=== PATIENT | male | born 1965 | race Caucasian/White ===

== ENCOUNTER → 2018-03-23 10:27 | Outpatient (CLI) | payer MEDICARE, OTHER, SELFPAY ==
--- NOTE | 2018-03-23 10:35 | XR_ITS ---
XR ribs LT min 3V w CXR1V HISTORY: Posttraumatic pain ITS.REASON: LT RIB PAIN ORDERING PHYSICIAN: Reed Aguilar MD PATIENT AGE: 52 years Comparison: None FINDINGS: A frontal view of the chest shows no acute finding. Stimulator devices are noted over the upper chest on the right with leads to the neck region. There is lower thoracic curvature convex right. Multiple views of the Left ribs were obtained. Along the anterior aspect of the left seventh rib there is an area of cortical lucency superiorly which could be due to a nondisplaced fracture. No other significant anomalies are evident. IMPRESSION: Possible nondisplaced fracture left seventh rib anteriorly
== END ==
PROVIDERS: PCP Family Medicine; Visit Provider Family Medicine
DX: R07.81 Pleurodynia (principal)
CPT/HCPCS: 71101

== ENCOUNTER → 2019-08-06 09:05 | Outpatient (CLI) | payer MEDICARE, OTHER, SELFPAY ==
--- NOTE | 2019-08-06 09:12 | XR_ITS ---
PROCEDURE: XR LUMBAR SPINE MIN 4V CLINICAL INDICATION: ACUTE LOW BACK PAIN BILATERALLY COMPARISON: Lumbar spine from 01/06/2019 CT ABDOMEN PELVIS W CON from 05/15/2019 FINDINGS: There is mild lumbar curvature convex right. No fracture or dislocation is evident. There is multilevel spondylosis with degenerative disc disease at T10-T11, T11-T12, L1-L2, L2-L3, L3-L4. Endplate hypertrophic changes are present. There is mild facet arthritic changes at L5-S1. There is a 9 mm and may represent a renal stone. Calcific density to in the right upper quadrant IMPRESSION: 1. Multilevel lumbar spondylosis as described above overall not significantly changed 2. Right upper quadrant calcification consistent with renal stone Dictated by: Farzad Benavides MD 08/06/2019 11:45 Electronically signed by Farzad Benavides MD in [place] 08/06/2019 11:45
== END ==
PROVIDERS: PCP Family Medicine; Visit Provider Family Medicine
DX: M54.5 Low back pain (principal)
CPT/HCPCS: 72110

== ENCOUNTER 2020-06-05 10:06 | Emergency (ER) | payer MEDICARE, OTHER, SELFPAY ==
[2020-06-05 10:07] VITALS: BP 191/112; PULSE 83; RESP 16; TEMP 36.8; O2SAT 98; BMI 25.7
--- NOTE | 2020-06-05 10:24 | ECG_ITS ---
APPROVED REPORT Exam: Resting ECG HR:75 bpm ECG Measurements Heart Rate 75 AXES MT 166 P 56 QRSd 92 QRS -19 QT 370 T -1 QTc 413 Conclusion Normal sinus rhythm Normal ECG Electronically signed by : Reed Madera, 06/05/2020 19:35:03
--- NOTE | 2020-06-05 10:35 | XR_ITS ---
PROCEDURE: XR CHEST PORTABLE Referring Doctor: Pedro Bailey Patient Age:54Y CLINICAL HISTORY: rib pain Bilateral lateral side rib pain patient has neural stimulator not using at but COMPARISON: CR CS5 CERVICAL SPINE 4 OR 5 VIEWS from 01/06/2015 CR [id number] VIEWS from 11/19/2016 CR [id number] XR ribs LT min 3V w CXR1V from 03/23/2018 FINDINGS: AP semi-erect portable chest performed today. The lungs are well expanded and clear with nothing acute. But no pneumothorax but no pneumonia. No pleural effusion or chest wall findings. Heart normal size. Normal pulmonary vascularity. Payal and mediastinal structures satisfactory. What is seen of the chest wall and limited view of the ribs on today's portable study CXR unremarkable.. We again see the stimulator devices overlying the right chest, with leads extending upward to the right neck. Appears to be calcification along the course of these leads suggesting they are longstanding-in I do see a similar appearance on an old 2014 cervical spine series and 2006 right shoulder exam. IMPRESSION: Lungs clear No acute cardiopulmonary disease. -. Again note the longstanding stimulator devices overlying the upper right chest, with leads extending upward along the right neck. No obvious rib or a chest wall findings otherwise on this portable chest Dictated by: Terry Shanks MD 06/05/2020 12:25 Terry Shanks MD in [place] 06/05/2020 12:25
--- NOTE | 2020-06-05 10:35 | HMH.EDGENADL ---
ED Disposition Clinical Impression: Rib pain Hypertension Qualifiers: Hypertension type: essential hypertension Qualified Code(s): I10 - Essential (primary) hypertension Disposition: Home, Self-Care Condition on Discharge: Good Additional Instructions: Begin taking lisinopril once a day. Discontinue taking hydrochlorothiazide. Follow-up with your PCP regarding blood pressure control given your history of diabetes. You should be on an JEROD inhibitor/ARB/calcium channel talha. You were started on JEROD inhibitor in the emergency department. You can take tramadol as needed for rib pain. You may need further diagnostic testing such as EMG or MRI to establish the etiology of your pain. These are outpatient studies. Referrals: Broyd Aguila MD [Primary Care Provider] - 3 days - Critical Care Critical Care Time: No Attestation: On 06/05/20, the high probability of a clinically significant, sudden or life threatening deterioration of the following system(s) required my full and direct attention, intervention and personal management. The time I documented below is in addition to time spent performing reported procedures but includes the following listed in this critical care notation. Medical Decision Making - Marv Inquiry Pt receiving controlled substance: Yes Marv was queried for this patient: No Reason not queried -: Marv login issues Risks and benefits of using a controlled substance: were discussed with pt by me Vital Signs: 06/05/20 10:07 06/05/20 11:43 06/05/20 12:23 Temperature 98.2 F Temperature Source Oral Pulse Rate [Radial] 83 89 Respiratory Rate 16 20 Blood Pressure [Right Arm] 191/112 H 145/92 H 153/91 H Blood Pressure Mean [Right Arm] 138 109 111 Blood Pressure Source [Right Arm] Automatic Cuff Blood Pressure Position [Right Arm] Sitting Sitting Sitting 02 Sat by Pulse Oximetry 98 99 Oxygen Delivery Method Room Air - Lab Data Lab Results 06/05/20 10:26: Urine Color Yellow, Urine Appearance Clear, Urine pH 7.0, Ur Specific [place] 1.015, Urine Protein Negative, Urine Glucose (UA) Negative, Urine Ketones Negative, Urine Blood Negative, Urine Nitrate Negative, Urine Bilirubin Negative, Urine Urobilinogen 0.2, Ur Leukocyte Esterase Negative, Urine RBC Occasional, Urine WBC Occasional 06/05/20 10:35: WBC 7.2, RBC 5.88, Hgb 17.9, Hct 53.4 H, MCV 90.9, MCH 30.5, MCHC 33.5, RDW 13.4, Plt Count 260, MPV 7.4, Neut % (Auto) 72.3, Lymph % (Auto) 19.1, [place] % (Auto) 6.0, Eos % (Auto) 1.4, Baso % (Auto) 1.2, Neut # (Auto) 5.2, Lymph # (Auto) 1.4, [place] # (Auto) 0.4, Eos # (Auto) 0.1, Baso # (Auto) 0.1 06/05/20 10:35: Sodium 137, Potassium 3.8, Chloride 94 L, Carbon Dioxide 34 H, Anion Gap 12.8, BUN 19, Creatinine 0.80, Estimated Creat Clear 96, Estimated GFR 100, Est GFR ( Amer) 121, Glucose 166 H, Calcium 10.8 H, Total Bilirubin 1.1, AST 41, ALT 40, Alkaline Phosphatase 101, Total Protein 8.9 H, Albumin 5.1 H, Globulin 3.8 H, Albumin/Globulin Ratio 1.3 06/05/20 10:35: Troponin I < 0.01, NT-Pro-B Natriuret Pep 27.6 Result diagrams: 06/05/20 10:35 06/05/20 10:35 Medical Decision Narrative: 54yo M evaluated for ongoing bilateral rib pain. There is tinnitus includes but not limited to: Pneumonia, ACS, PE, distal skeletal injury, radicular pain. Patient is in no acute distress on initial evaluation. He is tender to palpate over the areas he demonstrates. He states he has not been exercising secondary to this pain. He has seen his PCP twice in the last week. CBC, CMP, troponin, UA, chest x-ray are all unremarkable. EKG unremarkable as documented above. Patient be treated with tramadol for his pain. Also discussed with the patient that as a diabetic, he should be on an JEROD or an ARB for his hypertension. His blood pressure is currently elevated he believes is secondary to pain and anxiety. Will initiate the patient on lisinopril in the emergency department and encouraged him to follow-up with hi
[2020-06-05 10:41] LABS: Microscopic, Urine URINE MICROSCOPIC (MICROSCOPIC)
[2020-06-05 10:43] LABS: Basophils # 0.1 K/mm3 (0-0.2); Basophils % 1.2 % (0.1-2.0); Eosinophils # 0.1 K/mm3 (0.0-0.4); Eosinophils % 1.4 % (0.1-12.0); Hematocrit 53.4 % (42.0-52.0); Hemoglobin 17.9 g/dL (14.1-18.0); Lymphocytes # 1.4 K/mm3 (0.7-4.5); Lymphocytes % 19.1 % (10-50); Mean Corpuscular HGB Conc 33.5 g/dL (31.8-35.4); Mean Corpuscular Hemoglobin 30.5 pg (27.0-31.2); Mean Corpuscular Volume 90.9 fl (80-94); Mean Platelet Volume 7.4 fl (7.4-10.4); Monocytes # 0.4 K/mm3 (0.1-1.0); Neutrophils # 5.2 K/mm3 (1.8-7.8); Neutrophils % 72.3 % (37.0-80.0); Platelet Count 260 K/mm3 (142-424); Red Blood Count 5.88 M/mm3 (4.60-6.20); Red Cell Distribution Width 13.4 % (11.5-17.5); White Blood Count 7.2 K/mm3 (4.8-10.8)
[2020-06-05 10:45] LABS: Appearance,Urine CLEAR (Clear); Bilirubin,Urine Negative (Negative); Blood, Urine Negative (Negative); Color,Urine YELLOW (Yellow); Glucose,Urine (UA) Negative (Negative); Ketones,Urine Negative (Negative); Leukocyte Esterase,Urine Negative (Negative); Nitrate,Urine Negative (Negative); Protein,Urine Negative (Negative); Specific Gravity, Urine 1.015 (1.005-1.030); Urobilinogen,Urine 0.2 EU/dl (0.2)
[2020-06-05 10:50] LABS: Alanine Aminotransferase 40 U/L (12-78); Albumin Level 5.1 g/dl (3.5-5.0); Albumin/Globulin Ratio 1.3 (1.1-1.8); Alkaline Phosphatase 101 U/L (38-126); Anion Gap 12.8 mEq/L (5-15); Aspartate Amino Transferase 41 U/L (17-59); Bilirubin,Total 1.1 mg/dl (0.2-1.3); Blood Urea Nitrogen 19 mg/dl (9-20); Calcium 10.8 mg/dl (8.4-10.2); Carbon Dioxide 34 mmol/L (22.0-30.0); Chloride 94 mmol/L (98-107); Creatinine Clearance Estimated 96 mL/min (50-200); Estimated Glomerular Filt Rate 100 ml/min (>60); GFR (African American) 121 ML/MIN (>60); Globulin 3.8 g/dL (1.3-3.2); Glucose 166 mg/dl (74-100); Potassium 3.8 mmoL/L (3.5-5.1); Sodium 137 mmol/L (136-145); Total Protein,Serum 8.9 g/dl (6.3-8.2)
--- NOTE | 2020-06-05 10:55 | PC.NURSE ---
rad at BS
[2020-06-05 11:00] LABS: RBC,Urine Occasional #/hpf (0-3); WBC,Urine Occasional #/hpf (0-3)
[2020-06-05 11:02] LABS: NT Pro Brain Natriuretic Pep. 27.6 pg/mL (0-125)
[2020-06-05 11:12] LABS: Troponin I < 0.01 ng/ml (0.00-0.034)
[2020-06-05 11:43] VITALS: BP 145/92
[2020-06-05 12:23] VITALS: BP 153/91; PULSE 89; RESP 20; O2SAT 99
[2020-06-05 13:05] VITALS: BP 160/100; PULSE 78; RESP 18; TEMP 36.6; O2SAT 98
== END 2020-06-05 13:06 | disposition home or self-care (01) ==
PROVIDERS: Emergency Provider Family Medicine; PCP Family Medicine
DX: R07.81 Pleurodynia (principal); I10 Essential (primary) hypertension; E11.65 Type 2 diabetes mellitus with hyperglycemia; H93.19 Tinnitus, unspecified ear; R06.02 Shortness of breath
CPT/HCPCS: 71045; 80053; 81001; 83880; 84484; 85025; 93005; 99283

== ENCOUNTER 2021-01-31 12:55 | Emergency (ER) | payer MEDICARE, OTHER, SELFPAY ==
[2021-01-31 15:16] VITALS: BP 150/80; PULSE 98; RESP 18; TEMP 36.6; O2SAT 100; BMI 25.7
--- NOTE | 2021-01-31 15:30 | HMH.EDUTC ---
[facility] [place] Clinical Impression: Diarrhea Qualifiers: Diarrhea type: unspecified type Qualified Code(s): R19.7 - Diarrhea, unspecified Disposition: Home, Self-Care Condition on Discharge: Good Instructions: DI for Diarrhea and Traveler's Diarrhea -- Adult Additional Instructions: Outpatient order for diarrhea panel if diarrhea returns Clear liquids and bland diet until normal BM Referrals: Brody Aguila MD [Primary Care Provider] - Time of Disposition: 15:45 Medical Decision Making - Marv Inquiry Pt receiving controlled substance: No Vital Signs: 01/31/21 15:16 Temperature 98 F Temperature Source Oral Pulse Rate [Left] 98 H Respiratory Rate 18 Blood Pressure [Right Arm] 150/80 H Blood Pressure Mean [Right Arm] 103 02 Sat by Pulse Oximetry 100 [facility] [place] - General Stated complaint: diarrhea Time Seen by Provider: 01/31/21 15:30 Mode of Arrival: Ambulatory Source of Information: Patient Limitations: No Limitations Description of Symptoms (Recalled from Triage Doc. by RN): pt c/o of diarhea x2 days. HEENT Symptoms (Recalled from RN notes): No Resp Symptoms (Recalled from RN notes): No Skin Symptoms (Recalled from RN notes): No MS Symptoms (Recalled from RN notes): No Functional Status (Recalled from RN notes): na - History of Present Illness Provider Complaint: Diarrhea this am. States he ate at the [place] yesterday, felt ok. Had a normal BM last night and this am. Then had acute onset loose watery stools X 3. Got concerned because this happened to him once before and his potassium got very low. No vomiting. No diarrhea since he has been here. No fever or abdominal pain. Onset (ago): day(s) (1) Location: abdomen Relieving factors: none Exacerbating factors: none Associated symptoms: denies other symptoms Treatments prior to arrival: none - Related Data Home Medications Medication Instructions Recorded Confirmed Metoprolol Tartrate 50 mg PO DAILY 12/23/17 12/23/17 Fluticasone Propionate [Flonase 1 spr NS BID 05/15/19 50mcg nasal spray 16gm] predniSONE [Deltasone 10mg tablet] 10 mg PO BID 05/15/19 Previous Rx's Medication Instructions Recorded Tramadol HCl [Tramadol 50mg 50 mg PO TID PRN #10 tab 06/05/20 Tab] lisinopriL [Lisinopril 10mg Tab] 10 mg PO DAILY #14 tab 06/05/20 Allergies Allergy/AdvReac Type Severity Reaction Status Date / Time No Known Allergies Allergy Verified 05/15/19 03:18 - Worker's Comp Is this a Worker's Comp case?: No [facility] History - Hepatitis A Screen Drug use history?: No High risk sexual behaviors?: No History of sexually transmitted infection?: No Currently employed?: No Childcare worker?: No Do you have indoor plumbing?: Yes Do you have electricity?: Yes Attestation statement:: This patient has been screened for Hepatitis A risk factors. I have reviewed the patient's past medical history: Yes Medical History: Reports:: Diabetes Mellitus Type 2, Hypertension Denies:: Cancer, Diabetes Mellitus Type 1, Internal Pacemaker, MRSA Other Medical History: Reports: Other (CP) Other Surgeries: Yes: Other (multiple due to CP). No: Pacemaker Amputation: No - Social History Smoking Status: Never smoker Alcohol Intake: never Occupational Status: other ROS Obtained: Yes All systems reviewed & no additional complaints - Gastrointestinal Gastrointestingal: Reports: loose stools Physical Exam - General General appearance: alert, in no apparent distress - Head Head exam: normocephalic - Eye Eye exam: Present: PERRL - ENT ENT exam: Present: normal oropharynx, TM's normal bilaterally - Chest Chest inspection: Present: normal inspection, symmetric chest wall rise - Respiratory Respiratory exam: Present: normal lung sounds bilaterally - Cardiovascular Cardiovascular exam: Present: regular rate, normal rhythm - Abdominal Exam Abdominal exam: Present: soft, hyperactive bowel sounds - Neurological Exam
[2021-01-31 15:54] VITALS: BP 0/0; PULSE 0; RESP 0; TEMP -17.7; TEMP 0
== END 2021-01-31 16:08 | disposition home or self-care (01) ==
PROVIDERS: Emergency Provider Physician Assistant; PCP Family Medicine
DX: R19.7 Diarrhea, unspecified (principal)
CPT/HCPCS: G0463; 99202

== ENCOUNTER → 2021-02-01 08:33 | Outpatient (CLI) | payer MEDICARE, OTHER, SELFPAY ==
[2021-02-01 08:36] LABS: Adenovirus F 40/41, stool Not Detected (NotDetected); Astrovirus Not Detected (NotDetected); Campylobacter Not Detected (NotDetected); Clostridium Difficile A/B, PCR Not Detected (NotDetected); Cryptosporidium Not Detected (NotDetected); Cyclospora Cayetanesis Not Detected (NotDetected); Entamoeba histolytica Not Detected (NotDetected); Enteroaggregative E coli Not Detected (NotDetected); Enterotoxigenic E coli Not Detected (NotDetected); Giardia lamblia Not Detected (NotDetected); Norovirus Not Detected (NotDetected); Plesimonas Shigalloides, PCR Not Detected (NotDetected); Rotavirus A Not Detected (NotDetected); Salmonella, PCR Not Detected (NotDetected); Sapovirus Not Detected (NotDetected); Shiga-like toxin E coli Not Detected (NotDetected); Shigella Enterovasive E coli Not Detected (NotDetected); Vibrio Cholerae Not Detected (NotDetected); Vibrio, PCR Not Detected (NotDetected); Yersinia Entercolitica, PCR Not Detected (NotDetected)
[2021-02-01 13:51] LABS: Enteropathogenic E coli Detected (NotDetected)
== END ==
PROVIDERS: Visit Provider Physician Assistant
DX: R19.7 Diarrhea, unspecified (principal); A04.0 Enteropathogenic Escherichia coli infection
CPT/HCPCS: 87506

== ENCOUNTER 2021-08-15 13:47 | Emergency (ER) | payer MEDICARE, OTHER, SELFPAY ==
[2021-08-15 15:03] VITALS: BP 138/91; PULSE 111; RESP 14; TEMP 36.7; O2SAT 98; BMI 25.7
--- NOTE | 2021-08-15 15:29 | HMH.EDUTC ---
[facility] [place] Dis[place] Clinical Impression: Shakiness Disposition: Home, Self-Care Condition on Discharge: Good Instructions: DI for Muscle Weakness, Prednisone Additional Instructions: Follow up with Family Doctor for further treatment and evaluation Hold last dose of Prednisone to see if that helps with nervousness and shakiness Straight to ER if any life threatening symptoms Return if needed Referrals: Brody Aguila MD [Primary Care Provider] - As needed Time of Disposition: 15:50 Medical Decision Making - Marv Inquiry Pt receiving controlled substance: No Marv was queried for this patient: No Vital Signs: 08/15/21 15:03 08/15/21 16:19 Temperature 98.1 F 98.1 F Temperature Source Oral Pulse Rate 111 H Pulse Rate [Left] 111 H Respiratory Rate 14 14 Blood Pressure 138/91 H Blood Pressure [Right Arm] 138/91 H Blood Pressure Mean [Right Arm] 106 02 Sat by Pulse Oximetry 98 - Lab Data Lab Results 08/15/21 16:12: Urine Color Yellow, Urine Appearance Clear, Urine pH 7.0, Ur Specific [place] 1.015, Urine Protein Negative, Urine Glucose (UA) Negative, Urine Ketones Negative, Urine Blood Negative, Urine Nitrate Negative, Urine Bilirubin Negative, Urine Urobilinogen 0.2, Ur Leukocyte Esterase Negative Medical Decision Narrative: Patient states that he is feeling a little better now Discussed with patient and educated that he has been on 10mg Prednisone dose pack and this may cause him to feel shaky and nervous that it is a common side effect however recommended that patient be transferred to the ED for further work up and evaluation and patient declined Recommended that patient hold last dose of Predisone and see if his shakiness improves and if not to follow up with his PCP for further treatment and straight to ER if any worsening of symptoms or any life threatening symptoms patient and family agreed Patient denies SOA, Denies CP and denies any other symptoms [facility] [place] HPI - General Stated complaint: weakness, low BP Time Seen by Provider: 08/15/21 15:29 Mode of Arrival: Ambulatory Source of Information: Patient Limitations: No Limitations Description of Symptoms (Recalled from Triage Doc. by RN): pt c/o low bp and shakiness. pt reports his bp was 126/74 this am. (he states this is low for him) FS this am was 148. pt states this has been ongoing x3 days. BP at this time is 146/86 HEENT Symptoms (Recalled from RN notes): No Resp Symptoms (Recalled from RN notes): No Skin Symptoms (Recalled from RN notes): No MS Symptoms (Recalled from RN notes): No Functional Status (Recalled from RN notes): wnl - History of Present Illness Provider Complaint: Patient state that he has been feeling shaky and out of sorts for the last several days States that he feels like he is nervous State that he checked his blood pressure this morning and it was low it was 126/74 and that is low for him States that he has been on prednisone and baclofen for back pain but was worried when his blood pressure was low like that and him feeling shaky States that he is a diabetic and FSBS at home was 146 - Related Data Home Medications Medication Instructions Recorded Confirmed Metoprolol Tartrate 50 mg PO DAILY 12/23/17 12/23/17 Fluticasone Propionate [Flonase 1 spr NS BID 05/15/19 50mcg nasal spray 16gm] predniSONE [Deltasone 10mg tablet] 10 mg PO BID 05/15/19 Previous Rx's Medication Instructions Recorded Tramadol HCl [Tramadol 50mg 50 mg PO TID PRN #10 tab 06/05/20 Tab] lisinopriL [Lisinopril 10mg Tab] 10 mg PO DAILY #14 tab 06/05/20 ciprofloxacin HCl 500 mg tablet 500 mg PO BID #10 tab 02/02/21 Allergies Allergy/AdvReac Type Severity Reaction Status Date / Time No Known Allergies Allergy Verified 05/15/19 03:18 - Worker's Comp Is this a Worker's Comp case?: No [facility] History - Hepatitis A Screen Drug use history?: No High risk sexual behaviors?: No History of sexually transmitted infection?: No
[2021-08-15 16:18] LABS: Apearance,Urine Clear (Clear); Bilirubin,Urine Negative (Negative); Blood, Urine Negative (Negative); Color,Urine Yellow (Yellow); Glucose,Urine (UA) Negative (Negative); Ketones,Urine Negative (Negative); Protein,Urine Negative (Negative); Specific Gravity, Urine 1.015 (1.005-1.030); UTC Leukocyte Esterase,Urine Negative (Negative); UTC Nitrate,Urine Negative (Negative); Urobilinogen,Urine 0.2 EU/dl (0.2)
[2021-08-15 16:19] VITALS: BP 138/91; PULSE 111; RESP 14; TEMP 36.7
== END 2021-08-15 16:19 | disposition home or self-care (01) ==
PROVIDERS: Emergency Provider Nurse Practitioner; PCP Family Medicine
DX: G25.1 Drug-induced tremor (principal); T38.0X5A Adverse effect of glucocorticoids and synthetic analogues, initial encounter; I10 Essential (primary) hypertension; E11.9 Type 2 diabetes mellitus without complications; G80.9 Cerebral palsy, unspecified; Z79.899 Other long term (current) drug therapy
CPT/HCPCS: G0463; 81003; 99213

== ENCOUNTER 2022-03-05 12:29 | Emergency (ER) | payer MEDICARE, OTHER, SELFPAY ==
[2022-03-05 13:00] VITALS: BP 141/90; PULSE 88; RESP 19; TEMP 36.5; O2SAT 98; BMI 23.1
--- NOTE | 2022-03-05 13:21 | EXP.UTC ---
Discharge Plan Disposition Patient Disposition: Home, Self-Care Condition: Good Prescriptions Prescriptions: New azithromycin [Zithromax] 250 mg tablet See Rx Instructions PO .COMPLEX Qty: 6 0RF Rx Instructions: For 250 mg dose pack: take 500 mg today (day 1), then 250 mg for 4 days (days 2-5) Discontinued ciprofloxacin HCl [Cipro] 500 mg tablet 500 mg PO BID Qty: 10 0RF Rx Instructions: Take 1 tablet twice a day for 5days. prednisone 10 MG tablet 10 mg PO BID No Action metoprolol tartrate 50 MG tablet 50 mg PO DAILY fluticasone propionate 120 SPR/BOT bottle 1 spr NS BID tramadol 50 MG tablet 50 mg PO TID PRN (Reason: Moderate Pain) Qty: 10 0RF lisinopril 10 MG tablet 10 mg PO DAILY Qty: 14 0RF Referrals Follow up/Referrals: Brody Aguila MD [Primary Care Provider] - See instructions Activity Restrictions/Add. Instructions Additional Instructions/Restrictions: Start antibiotic patient to take as ordered for a full length of time even if you feel better. Sinus infections do not get better overnight. It may take 2-3 days to notice much improvement so be sure to use conservative measures as discussed for symptoms. Flonase 1 spray each nostril daily to help with nasal congestion, sinus and ear pressure/information Increase fluids Humidifier/vaporizer as needed Tylenol and ibuprofen as needed for fever or pain. If symptoms do not improve or get worse return or be seen in the ER Follow-up with primary care this week stop amoxicilin and cipro Clinical Impressions Clinical Impression: Acute maxillary sinusitis Instructions Patient Instructions: DI for Sinusitis Discharge ED Provider: Ju ([facility] [place] HPI General Stated complaint: Congestion, drainage, [place] Mode of Arrival: Ambulatory Source of Information: Patient Limitations: No Limitations Time Seen by Provider: 03/05/22 13:22 Description of Symptoms (Recalled from Triage Doc. by RN): PATIENT C/O COUGH AND CONGESTION X 2 WEEKS HEENT Symptoms (Recalled from RN notes): No Resp Symptoms (Recalled from RN notes): Yes Skin Symptoms (Recalled from RN notes): No MS Symptoms (Recalled from RN notes): No Functional Status (Recalled from RN notes): WNL History of Present Illness Provider Complaint: 56 yr old male presents for cough and congestion for 2 weeks. pt states he has seen his pcp 2 x and now is taking amoxicllin. Related Data Home Medications Medication Instructions Recorded Confirmed metoprolol tartrate 50 mg tablet 50 mg PO DAILY heart 12/23/17 12/23/17 fluticasone propionate 50 1 spr NS BID allergies 05/15/19 mcg/actuation nasal spray,suspension Previous Rx's Medication Instructions Recorded lisinopril 10 mg tablet 10 mg PO DAILY #14 tabs 06/05/20 tramadol 50 mg tablet 50 mg PO TID PRN Moderate Pain #10 06/05/20 tabs azithromycin 250 mg tablet See Rx Instructions PO .COMPLEX #6 03/05/22 (Zithromax) tabs Allergies Allergy/AdvReac Type Severity Reaction Status Date / Time No Known Allergies Allergy Verified 05/15/19 03:18 Worker's Comp Is this a Worker's Comp case?: No [facility] Medical History , [employer] DES[employer]) Diabetes mellitus, type 2 Social History , [employer]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
[2022-03-05 13:40] VITALS: BP 141/90; PULSE 88; RESP 19; TEMP 36.5; O2SAT 98
== END 2022-03-05 13:44 | disposition home or self-care (01) ==
PROVIDERS: Emergency Provider Nurse Practitioner Family; PCP Family Medicine
DX: J01.00 Acute maxillary sinusitis, unspecified (principal)
CPT/HCPCS: 99212; G0463

== ENCOUNTER → 2022-03-08 10:46 | Outpatient (CLI) | payer MEDICARE, OTHER, SELFPAY ==
--- NOTE | 2022-03-08 10:58 | XR_ITS ---
FINAL REPORT CLINICAL HISTORY: COUGH COMPARISON: June 05, 2020 FINDINGS: Two views of the chest were obtained. A device overlies the right upper thorax. The heart size and pulmonary vascularity are within normal limits. The mediastinum is normal. No acute pulmonary abnormality is identified. There is no pneumothorax. The bony thorax is intact. IMPRESSION: No active cardiopulmonary disease. Reviewed, Interpreted and Dictated by Oli Bruno III, MD Transcribed by William Begum Authenticated and [facility]
== END ==
PROVIDERS: PCP Family Medicine; Visit Provider Family Medicine
DX: R05.9 Cough, unspecified (principal)
CPT/HCPCS: 71046

== ENCOUNTER → 2022-03-17 08:22 | Outpatient (CLI) | payer MEDICARE, OTHER, SELFPAY | PROVIDERS: PCP Family Medicine; Visit Provider Family Medicine | DX: J06.9 Acute upper respiratory infection, unspecified (principal); B96.1 Klebsiella pneumoniae [K. pneumoniae] as the cause of diseases classified elsewhere | CPT/HCPCS: 87070; 87077; 87186; 87205 ==

== ENCOUNTER 2023-07-02 09:48 | Emergency (ER) | payer MEDICARE, OTHER, SELFPAY ==
[2023-07-02 10:00] VITALS: BP 146/94; PULSE 75; RESP 18; TEMP 36.4; O2SAT 99; BMI 24.0
--- NOTE | 2023-07-02 10:07 | EXP.UTC ---
Discharge Plan Disposition Patient Disposition: Home, Self-Care Condition: Good Prescriptions Prescriptions: New cephalexin 500 mg capsule 500 mg PO QID Qty: 40 0RF No Action metoprolol tartrate 50 MG tablet 50 mg PO DAILY fluticasone propionate 120 SPR/BOT bottle 1 spr NS BID tramadol 50 MG tablet 50 mg PO TID PRN (Reason: Moderate Pain) Qty: 10 0RF atorvastatin 10 mg tablet 10 mg PO DAILY sulfamethoxazole-trimethoprim 800-160 mg tablet See Rx Instructions .ROUTE .COMPLEX Patient Comments: TAKE 1 TABLET BY MOUTH TWICE DAILY FOR 10 DAYS Rx Instructions: TAKE 1 TABLET BY MOUTH TWICE DAILY FOR 10 DAYS baclofen 10 mg tablet See Rx Instructions .ROUTE .COMPLEX Patient Comments: TAKE 1 TABLET BY MOUTH EVERY 8 HOURS NEEDED Rx Instructions: TAKE 1 TABLET BY MOUTH EVERY 8 HOURS NEEDED lisinopril-hydrochlorothiazide 10-12.5 mg tablet 1 tab PO DAILY Patient Comments: TAKE 1 TABLET BY MOUTH ONCE DAILY Referrals Follow up/Referrals: Brody Aguila MD [Primary Care Provider] - See instructions Activity Restrictions/Add. Instructions Additional Instructions/Restrictions: Take tylenol for pain or fever. Take the medications as directed. Start the cephalexin. Continue the bactrim that you are already on. Follow up with your regular doctor as scheduled. GO TO THE ER FOR ANY WORSENING SYMPTOMS Clinical Impressions Clinical Impression: Cellulitis Instructions Patient Instructions: Cellulitis, Ceftriaxone Injection Discharge ED Provider: Ramy Vasquez [facility] General Stated complaint: Swollen legs Time Seen by Provider: 07/02/23 10:07 History of Present Illness Provider Complaint: He states that for the past 5 days he has had worsening redness of both his lower legs. He has also had some dysuria. Related Data Home Medications Medication Instructions Recorded Confirmed metoprolol tartrate 50 mg tablet 50 mg PO DAILY heart 12/23/17 07/02/23 fluticasone propionate 50 1 spr NS BID allergies 05/15/19 mcg/actuation nasal spray,suspension atorvastatin 10 mg tablet 10 mg PO DAILY 07/02/23 07/02/23 baclofen 10 mg tablet See Rx Instructions .Route .COMPLEX 07/02/23 07/02/23 lisinopril 10 1 tab PO DAILY 07/02/23 07/02/23 mg-hydrochlorothiazide 12.5 mg tablet sulfamethoxazole 800 See Rx Instructions .Route .COMPLEX 07/02/23 07/02/23 mg-trimethoprim 160 mg tablet Previous Rx's Medication Instructions Recorded tramadol 50 mg tablet 50 mg PO TID PRN Moderate Pain #10 06/05/20 tabs cephalexin 500 mg capsule 500 mg PO QID #40 caps 07/02/23 Allergies Allergy/AdvReac Type Severity Reaction Status Date / Time No Known Allergies Allergy Verified 05/15/19 03:18 [facility] Disclaimer: The information contained in this section may have been updated after the patient was seen, as this information can be updated by other users. Medical History (Updated 07/02/23 @ 11:06 by Ramy Vasquez APRN) Diabetes mellitus, type 2 Enlarged prostate High cholesterol History of seizure Kidney stones Social History , GLADYS) Smoking Status: Never smoker alcohol intake: never current occupational status: other Travel in the last 8 weeks: None caffeine: No ROS Obtained: Yes All systems reviewed & no additional complaints except as documented Constitutional Constitutional: Denies chills and Denies fever(s) Eyes Eyes: Denies eye discharge ENT Ears, Nose, Mouth, and Throat: Denies dizziness, Denies otalgia and Denies sore throat Cardiovascular Cardiovascular: Denies chest pain Respiratory Respiratory: Denies shortness of breath, Denies chest congestion, Denies cough, Denies stridor and Denies wheezing Gastrointestinal Gastrointestingal: Denies nausea or vomiting Genitourinary Male Genitourinary: Reports as per HPI, Denies difficulty urinating, Reports urinary frequency, Reports urinary hesitancy and Denies urinary incontinence Musculoskeletal Musculoskeletal: Reports system reviewed and no additional complaints, except as documented and Denies arthralgias Integumentary/Breasts Skin/Breast: Denies rash Neurologic Neurologic: Denies dizziness and Denies paresthesias Allergic/Immunologic Allergic/Immunologic: Denies wheezing Physical Exam General General appearance: alert and in no apparent distress Head Head exam: atraumatic, normocephalic and normal inspection Eye Eye exam: Present normal appearance, PERRL and EOMI ENT ENT exam: Present normal exam, normal oropharynx, mucous membranes moist, TM's normal bilaterally and normal external ear exam Neck Neck exam: Present normal inspection, full ROM and trachea midline; Absent meningismus or lymphadenopathy Chest Chest inspection: Present normal inspection and symmetric chest wall rise; Absent tenderness Respiratory Respiratory exam: Present normal lung sounds bilaterally; Absent respiratory distress Cardiovascular Cardiovascular exam: Present regular rate and normal rhythm; Absent JVD Abdominal Exam Abdominal exam: Present soft and normal bowel sounds; Absent distention, tenderness or guarding Extremities Exam Extremities exam: Present normal inspection, full ROM and normal capillary refill; Absent calf tenderness Back Exam Back exam: Present normal inspection; Absent tenderness Neurological Exam Neurological exam: Present alert and oriented X3 Psychiatric Psychiatric exam: Present normal affect and normal mood Skin Skin exam: Present erythema (there is redness of both his leg in the adrian area, no open wound and no drainage. ) Lymphatic Lymphatic Findings: no adenopathy Medical Decision Making Marv Inquiry Pt receiving controlled substance: No Lab Data Lab results reviewed: Yes I reviewed the patient's lab results.
[2023-07-02 10:42] LABS: Apearance,Urine Clear (Clear); Color,Urine Yellow (Yellow)
[2023-07-02 10:43] LABS: Bilirubin,Urine Negative (Negative); Blood, Urine Negative (Negative); Glucose,Urine (UA) Negative (Negative); Ketones,Urine Negative (Negative); Protein,Urine Negative (Negative)
[2023-07-02 10:44] LABS: UTC Leukocyte Esterase,Urine Negative (Negative); UTC Nitrate,Urine Negative (Negative); Urobilinogen,Urine 0.2 EU/dl (0.2)
--- NOTE | 2023-07-02 10:47 | PC.NURSE ---
Addendum entered by Lucy Pierre RN 07/02/23 11:16: After going in to give the shot the patient he has reconsidered and took the shot in the right gluteus medius. Original Note: Spoke with Kulwinder CLEMENTE to verify it was okay to give rocephen into arm as pt request. I spoke with pt and address that there is going to be more pain with this placement of the shot, and advised it is generally given in the gluteus medius. He understood the precautions and still wants the shot in his arm.
[2023-07-02] MEDS: LIDOCAINE 1% 5ML PF VIAL IM (10:53)
[2023-07-02] MEDS: cefTRIAXone 1GM VIAL 1 GM IM (10:53)
[2023-07-02 11:17] VITALS: BP 146/94; PULSE 75; RESP 75; TEMP 36.4; O2SAT 99
== END 2023-07-02 11:17 | disposition home or self-care (01) ==
PROVIDERS: Emergency Provider Nurse Practitioner Family; PCP Family Medicine
DX: L03.115 Cellulitis of right lower limb (principal); L03.116 Cellulitis of left lower limb; R30.0 Dysuria; I10 Essential (primary) hypertension; E78.5 Hyperlipidemia, unspecified
CPT/HCPCS: 81003; 96372; 99212; 99214; G0463; J0696

== ENCOUNTER 2023-07-05 19:00 | Emergency (ER) | payer MEDICARE, OTHER, SELFPAY ==
[2023-07-05 19:20] VITALS: BP 145/95; PULSE 79; RESP 18; TEMP 36.9; O2SAT 98; BMI 22.8
--- NOTE | 2023-07-05 19:26 | EXP.UTC ---
Discharge Plan Disposition Patient Disposition: Home, Self-Care Condition: Good Prescriptions Prescriptions: No Action metoprolol tartrate 50 MG tablet 50 mg PO DAILY fluticasone propionate 120 SPR/BOT bottle 1 spr NS BID tramadol 50 MG tablet 50 mg PO TID PRN (Reason: Moderate Pain) Qty: 10 0RF atorvastatin 10 mg tablet 10 mg PO DAILY sulfamethoxazole-trimethoprim 800-160 mg tablet See Rx Instructions .ROUTE .COMPLEX Patient Comments: TAKE 1 TABLET BY MOUTH TWICE DAILY FOR 10 DAYS Rx Instructions: TAKE 1 TABLET BY MOUTH TWICE DAILY FOR 10 DAYS baclofen 10 mg tablet See Rx Instructions .ROUTE .COMPLEX Patient Comments: TAKE 1 TABLET BY MOUTH EVERY 8 HOURS NEEDED Rx Instructions: TAKE 1 TABLET BY MOUTH EVERY 8 HOURS NEEDED lisinopril-hydrochlorothiazide 10-12.5 mg tablet 1 tab PO DAILY Patient Comments: TAKE 1 TABLET BY MOUTH ONCE DAILY cephalexin 500 mg capsule 500 mg PO QID Qty: 40 0RF Referrals Follow up/Referrals: Brody Aguila MD [Primary Care Provider] - See instructions Activity Restrictions/Add. Instructions Additional Instructions/Restrictions: Take tylenol for pain or fever Continue the cephalexin (keflex) that you are on. Take the medications as directed. Follow up with your regular doctor within the next 48 to 72 hours. GO TO THE ER FOR ANY WORSENING SYMPTOMS Clinical Impressions Clinical Impression: Cellulitis Instructions Patient Instructions: Cellulitis Discharge ED Provider: Ramy Vasquez [facility] General Stated complaint: bilateral leg swelling/redness Time Seen by Provider: 07/05/23 19:26 History of Present Illness Provider Complaint: He is back to follow up over the redness of both his lower legs. He states that it has not improved since he started taking the cephalexin. He denies any fever/chills/malaise. Related Data Home Medications Medication Instructions Recorded Confirmed metoprolol tartrate 50 mg tablet 50 mg PO DAILY heart 12/23/17 07/02/23 fluticasone propionate 50 1 spr NS BID allergies 05/15/19 mcg/actuation nasal spray,suspension atorvastatin 10 mg tablet 10 mg PO DAILY 07/02/23 07/02/23 baclofen 10 mg tablet See Rx Instructions .Route .COMPLEX 07/02/23 07/02/23 lisinopril 10 1 tab PO DAILY 07/02/23 07/02/23 mg-hydrochlorothiazide 12.5 mg tablet sulfamethoxazole 800 See Rx Instructions .Route .COMPLEX 07/02/23 07/02/23 mg-trimethoprim 160 mg tablet Previous Rx's Medication Instructions Recorded tramadol 50 mg tablet 50 mg PO TID PRN Moderate Pain #10 06/05/20 tabs cephalexin 500 mg capsule 500 mg PO QID #40 caps 07/02/23 Allergies Allergy/AdvReac Type Severity Reaction Status Date / Time No Known Allergies Allergy Verified 07/05/23 19:31 [facility] Disclaimer: The information contained in this section may have been updated after the patient was seen, as this information can be updated by other users. Medical History (Updated 07/05/23 @ 19:41 by Ramy Vasquez APRN) Diabetes mellitus, type 2 Enlarged prostate High cholesterol History of seizure Kidney stones Social History Smoking Status: Never smoker alcohol intake: never current occupational status: other Travel in the last 8 weeks: None caffeine: No ROS Obtained: Yes All systems reviewed & no additional complaints except as documented Constitutional Constitutional: Denies chills and Denies fever(s) Eyes Eyes: Denies eye discharge ENT Ears, Nose, Mouth, and Throat: Denies dizziness, Denies otalgia and Denies sore throat Cardiovascular Cardiovascular: Denies chest pain Respiratory Respiratory: Denies shortness of breath, Denies chest congestion, Denies cough, Denies stridor and Denies wheezing Gastrointestinal Gastrointestingal: Denies nausea or vomiting Musculoskeletal Musculoskeletal: Reports system reviewed and no additional complaints, except as documented and Denies arthralgias Integumentary/Breasts Skin/Breast: Reports as per HPI and Reports rash Neurologic Neurologic: Denies dizziness and Denies paresthesias Allergic/Immunologic Allergic/Immunologic: Denies wheezing Physical Exam General General appearance: alert and in no apparent distress Head Head exam: atraumatic, normocephalic and normal inspection Eye Eye exam: Present normal appearance, PERRL and EOMI ENT ENT exam: Present normal exam, normal oropharynx, mucous membranes moist, TM's normal bilaterally and normal external ear exam Neck Neck exam: Present normal inspection, full ROM and trachea midline; Absent meningismus or lymphadenopathy Chest Chest inspection: Present normal inspection and symmetric chest wall rise; Absent tenderness Respiratory Respiratory exam: Present normal lung sounds bilaterally; Absent respiratory distress Cardiovascular Cardiovascular exam: Present regular rate and normal rhythm; Absent JVD Abdominal Exam Abdominal exam: Present soft and normal bowel sounds; Absent distention, tenderness or guarding Extremities Exam Extremities exam: Present normal inspection, full ROM and normal capillary refill; Absent calf tenderness Back Exam Back exam: Present normal inspection; Absent tenderness Neurological Exam Neurological exam: Present alert and oriented X3 Psychiatric Psychiatric exam: Present normal affect and normal mood Skin Skin exam: Present erythema (there is erythema of the skin of both his lower legs in the adrian areas, no edema noted, no open wound or drainage noted. ) Lymphatic Lymphatic Findings: no adenopathy Medical Decision Making Medical Records Medical records reviewed: No I reviewed the patient's medical records. Marv Inquiry Pt receiving controlled substance: No Lab Data Lab results reviewed: Yes I reviewed the patient's lab results. 07/05/23 19:43
[2023-07-05 19:53] LABS: Apearance,Urine Clear (Clear); Color,Urine Yellow (Yellow)
[2023-07-05 19:54] LABS: Bilirubin,Urine Negative (Negative); Blood, Urine Negative (Negative); Glucose,Urine (UA) 1+ (Negative); Ketones,Urine Negative (Negative); Protein,Urine Negative (Negative); UTC Leukocyte Esterase,Urine Negative (Negative); UTC Nitrate,Urine Negative (Negative); Urobilinogen,Urine 0.2 EU/dl (0.2)
[2023-07-05 20:15] LABS: Basophils # 0.1 K/mm3 (0-0.2); Eosinophils # 0.2 K/mm3 (0.0-0.4); Eosinophils % 2.3 % (0.1-12.0); Hemoglobin 15.2 g/dL (14.1-18.0); Lymphocytes # 1.4 K/mm3 (0.7-4.5); Lymphocytes % 18.3 % (10-50); Mean Corpuscular HGB Conc 33.9 g/dL (31.8-35.4); Mean Corpuscular Hemoglobin 30.9 pg (27.0-31.2); Mean Corpuscular Volume 91.2 fl (80-94); Mean Platelet Volume 7.6 fl (7.4-10.4); Monocytes # 0.5 K/mm3 (0.1-1.0); Monocytes % 6.6 % (1.7-9.3); Neutrophils # 5.4 K/mm3 (1.8-7.8); Neutrophils % 71.8 % (37.0-80.0); Platelet Count 256 K/mm3 (142-424); Red Blood Count 4.93 M/mm3 (4.60-6.20); White Blood Count 7.5 K/mm3 (4.8-10.8)
[2023-07-05 20:17] VITALS: BP 145/95; PULSE 79; RESP 18; TEMP 37.1; O2SAT 98
[2023-07-05 20:33] LABS: Chloride 97 mmol/L (98-107); Potassium 4.6 mmoL/L (3.5-5.1); Sodium 132 mmol/L (136-145)
[2023-07-05 20:36] LABS: Anion Gap 12.6 mEq/L (5-15); Blood Urea Nitrogen 21 mg/dl (9-20); Carbon Dioxide 27 mmol/L (22.0-30.0); Creatinine Clearance Estimated 70 mL/min (50-200); Estimated Glomerular Filt Rate 69 ml/min (>60); GFR (African American) 83 ML/MIN (>60)
[2023-07-05 20:37] LABS: Calcium 9.2 mg/dl (8.4-10.2); Glucose 159 mg/dl (74-100)
== END 2023-07-05 20:17 | disposition home or self-care (01) ==
PROVIDERS: Emergency Provider Nurse Practitioner Family; PCP Family Medicine
DX: L03.115 Cellulitis of right lower limb (principal); L03.116 Cellulitis of left lower limb; R22.43 Localized swelling, mass and lump, lower limb, bilateral; E87.1 Hypo-osmolality and hyponatremia; B96.89 Other specified bacterial agents as the cause of diseases classified elsewhere; E78.5 Hyperlipidemia, unspecified
CPT/HCPCS: 80048; 81003; 85025; 87086; 99212; 99214; G0463

== ENCOUNTER 2023-07-19 15:34 | Outpatient (CLI) | payer MEDICARE, OTHER, SELFPAY ==
--- NOTE | 2023-07-19 15:40 | XR_ITS ---
FINAL REPORT CLINICAL HISTORY: LOW BACK PAIN COMPARISON: 08/06/2019 FINDINGS: 5 views of the lumbar spine were obtained. There is no evidence of fracture or dislocation. Mild and moderate degenerative change of the lumbar spine is present. Multilevel osteophytes are noted. Facet osteoarthropathy is present in the lower lumbar spine. There is a probable 7 mm right renal stone again identified. The vertebral alignment is normal. No paraspinous soft tissue abnormalities identified. IMPRESSION: Degenerative change as described, not significantly changed since the prior films of 2019. Probable 7 mm right renal stone, stable. Reviewed, Interpreted and Dictated by Oli Bruno III, MD Transcribed by Paula Mortensen Authenticated and [facility]
== END 2023-07-19 23:59 ==
PROVIDERS: PCP Family Medicine; Visit Provider Family Medicine
DX: M54.50 Low back pain, unspecified (principal)
CPT/HCPCS: 72110

== ENCOUNTER 2023-09-06 08:23 | Emergency (ER) | payer MEDICARE, OTHER, SELFPAY ==
[2023-09-06 08:24] VITALS: BP 161/95; PULSE 82; RESP 19; TEMP 36.4; O2SAT 98; BMI 24.0
[2023-09-06] MEDS: KETOROLAC 30MG/ML VIAL 15 MG IV (08:35)
[2023-09-06 08:37] VITALS: BP 138/93; PULSE 75; O2SAT 99; BMI 24.0
--- NOTE | 2023-09-06 08:44 | CT_ITS ---
FINAL REPORT CLINICAL HISTORY: concern for R sided stone, pain in right lower back COMPARISON: 05/15/2019 FINDINGS: Axial CT images of the abdomen and pelvis were obtained without intravenous contrast. Coronal reformatted images were also obtained.This study was performed with techniques to keep radiation doses as low as reasonably achievable (ALARA). Individualized dose reduction techniques using automated exposure control or adjustment of mA and/or kV according to the patient's size were employed. Abdomen:The lung bases are clear. There is a mid right renal stone measuring 7 mm which is stable. There is a 4 mm stone in the lower pole the left kidney which appears new or larger compared to the previous study. There is no evidence of hydronephrosis. There is mild nonspecific gallbladder wall thickening. The liver, spleen and pancreas have an unremarkable, unenhanced appearance. There is a left adrenal fat attenuation nodule measuring 20 mm which is consistent with myelolipoma. Pelvis: Images of the pelvis reveal no evidence of ureteral dilation or ureteral stone. The appendix is normal. There is mild bladder wall thickening. There are bilateral inguinal hernias containing fat only. IMPRESSION: Stable right renal stone. New or enlarged left renal stone. No hydronephrosis. Left adrenal nodule consistent with myelolipoma. Reviewed, Interpreted and Dictated by Oli Bruno III, MD Transcribed by Marleen Alvarez Authenticated and [facility]
[2023-09-06 08:50] LABS: Basophils # 0.1 K/mm3 (0-0.2); Basophils % 1.8 % (0.1-2.0); Eosinophils # 0.4 K/mm3 (0.0-0.4); Eosinophils % 5.5 % (0.1-12.0); Hematocrit 49.6 % (42.0-52.0); Hemoglobin 16.1 g/dL (14.1-18.0); Lymphocytes # 1.7 K/mm3 (0.7-4.5); Mean Corpuscular HGB Conc 32.5 g/dL (31.8-35.4); Mean Corpuscular Hemoglobin 30.5 pg (27.0-31.2); Mean Platelet Volume 7.6 fl (7.4-10.4); Monocytes # 0.4 K/mm3 (0.1-1.0); Monocytes % 6.1 % (1.7-9.3); Neutrophils # 4.2 K/mm3 (1.8-7.8); Neutrophils % 61.6 % (37.0-80.0); Platelet Count 247 K/mm3 (142-424); Red Blood Count 5.28 M/mm3 (4.60-6.20); Red Cell Distribution Width 12.7 % (11.5-17.5); White Blood Count 6.8 K/mm3 (4.8-10.8)
[2023-09-06 08:52] LABS: Chloride 100 mmol/L (98-107); Potassium 3.8 mmoL/L (3.5-5.1); Sodium 138 mmol/L (136-145)
[2023-09-06 08:54] LABS: Blood Urea Nitrogen 22 mg/dl (9-20); Creatinine Clearance Estimated 79 mL/min (50-200); Estimated Glomerular Filt Rate 86 ml/min (>60); GFR (African American) 105 ML/MIN (>60)
[2023-09-06 08:54] LABS: Microscopic, Urine URINE MICROSCOPIC (MICROSCOPIC)
[2023-09-06 08:55] LABS: Alanine Aminotransferase 45 U/L (12-78); Albumin Level 4.4 g/dl (3.5-5.0); Albumin/Globulin Ratio 1.5 (1.1-1.8); Alkaline Phosphatase 103 U/L (38-126); Anion Gap 8.8 mEq/L (5-15); Aspartate Amino Transferase 41 U/L (17-59); Bilirubin,Total 0.6 mg/dl (0.2-1.3); Calcium 9.6 mg/dl (8.4-10.2); Carbon Dioxide 33 mmol/L (22.0-30.0); Globulin 2.9 g/dL (1.3-3.2); Glucose 172 mg/dl (74-100); Total Protein,Serum 7.3 g/dl (6.3-8.2)
[2023-09-06 09:00] VITALS: BP 110/74; PULSE 57; O2SAT 96
[2023-09-06 09:01] LABS: Appearance,Urine CLEAR (Clear); Bilirubin,Urine Negative (Negative); Blood, Urine Negative (Negative); Color,Urine YELLOW (Yellow); Glucose,Urine (UA) Negative (Negative); Ketones,Urine Negative (Negative); Leukocyte Esterase,Urine Negative (Negative); Nitrate,Urine Negative (Negative); PH,Urine 6.5 (5.0-8.5); Protein,Urine Negative (Negative); Specific Gravity, Urine 1.015 (1.005-1.030); Urobilinogen,Urine 0.2 EU/dl (0.2)
--- NOTE | 2023-09-06 09:01 | PC.NURSE ---
radiology called regarding ct scan.
--- NOTE | 2023-09-06 09:09 | PC.NURSE ---
Addendum entered by Vini Polanco RN 09/06/23 09:10: via wheelchair Original Note: pt to CT scan
--- NOTE | 2023-09-06 09:16 | ED_ITS ---
Discharge Plan Disposition Patient Disposition: Home, Self-Care Chief Complaint: Abdominal Pain Prescriptions Prescriptions: No Action metoprolol tartrate 50 MG tablet 50 mg PO DAILY fluticasone propionate 120 SPR/BOT bottle 1 spr NS BID tramadol 50 MG tablet 50 mg PO TID PRN (Reason: Moderate Pain) Qty: 10 0RF atorvastatin 10 mg tablet 10 mg PO DAILY sulfamethoxazole-trimethoprim 800-160 mg tablet See Rx Instructions .ROUTE .COMPLEX Patient Comments: TAKE 1 TABLET BY MOUTH TWICE DAILY FOR 10 DAYS Rx Instructions: TAKE 1 TABLET BY MOUTH TWICE DAILY FOR 10 DAYS baclofen 10 mg tablet See Rx Instructions .ROUTE .COMPLEX Patient Comments: TAKE 1 TABLET BY MOUTH EVERY 8 HOURS NEEDED Rx Instructions: TAKE 1 TABLET BY MOUTH EVERY 8 HOURS NEEDED lisinopril-hydrochlorothiazide 10-12.5 mg tablet 1 tab PO DAILY Patient Comments: TAKE 1 TABLET BY MOUTH ONCE DAILY cephalexin 500 mg capsule 500 mg PO QID Qty: 40 0RF Referrals Follow up/Referrals: Brody Aguila MD [Primary Care Provider] - See instructions Activity Restrictions/Add. Instructions Additional Instructions/Restrictions: Call Dr. Zamora's office when he gets in office today at 1 PM. Take him the disc and packet. Call your family doctor to establish care for this visit to the emergency department and schedule follow-up within 48 hours to ensure improvement. If you have any worsening of your condition or any other concerning signs or symptoms, return to the emergency department or your primary care doctor for further evaluation. Clinical Impressions Clinical Impression: Right nephrolithiasis Instructions Patient Instructions: DI for Acute Abdominal Pain Discharge ED Provider: Swapnil Regan General Adult [facility] General Chief complaint: Abdominal Pain Stated complaint: possible kidney stone Time Seen by Provider: 09/06/23 08:24 Mode of Arrival: Ambulatory Source of Information: Patient Limitations: No Limitations Description of Symptoms (Recalled from ER Triage Doc. by RN): pt presents to ED with c/o right sided pain radiating into left lower back. pt reports pain in middle of flank radiating down into right side of back, with radiation into left lower back. pt reports he has known kidney stone, 7mm and does see a urologist. pt reports symptoms ongoing for 6-7 weeks. but pain has since gotten worse. History of Present Illness HPI narrative: This is a very pleasant 57-year-old male with hypertension, numerous kidney stones necessitating instrumentation presenting with nephrolithiasis. Patient states that for the past 6 weeks has been having right flank pain that radiates anteriorly into his right lower quadrant. No dysuria or hematuria, patient thinks that his lower extremity swelling has gotten worse since the start. Has been following with his urologist, urologist stated that he is able to follow-up on second week of September, but patient pain became worse. Called urologist, urologist recommended they come to the emergency department for further evaluation. Patient denies fevers or chills, nausea or vomiting, bowel dysfunction, or any other concerns. Still up to urinate without issue. Please note that above description of symptoms, in this electronic medical record under categorization of recalled from ER triage doctor by RN are reflective of an initial nursing assessment, however, is not reflective of my full history and physical exam that was personally taken and clarified. Consequentially, this preceding description of symptoms, which may include the patient's categorized chief complaint in the EMR, do not reflect my personal clinical impression, and the ultimate description of history of present illness and patient stated complaints should be deferred to this section of the note. Unless stated otherwise or congruent with this section of the note, additional signs, symptoms, or incongruence should be interpreted as inaccurate with my clinical impression. Related Data Home Medications Medication Instructions Recorded Confirmed metoprolol tartrate 50 mg tablet 50 mg PO DAILY heart 12/23/17 07/02/23 fluticasone propionate 50 1 spr NS BID allergies 05/15/19 mcg/actuation nasal spray,suspension atorvastatin 10 mg tablet 10 mg PO DAILY 07/02/23 07/02/23 baclofen 10 mg tablet See Rx Instructions .Route .COMPLEX 07/02/23 07/02/23 lisinopril 10 1 tab PO DAILY 07/02/23 07/02/23 mg-hydrochlorothiazide 12.5 mg tablet sulfamethoxazole 800 See Rx Instructions .Route .COMPLEX 07/02/23 07/02/23 mg-trimethoprim 160 mg tablet Previous Rx's Medication Instructions Recorded tramadol 50 mg tablet 50 mg PO TID PRN Moderate Pain #10 06/05/20 tabs cephalexin 500 mg capsule 500 mg PO QID #40 caps 07/02/23 Allergies Allergy/AdvReac Type Severity Reaction Status Date / Time No Known Allergies Allergy Verified 07/05/23 19:31 [facility] Disclaimer: The information contained in this section may have been updated after the patient was seen, as this information can be updated by other users. Medical History (Updated 09/06/23 @ 10:07 by Swapnil eRgan MD) History of seizure High cholesterol Kidney stones Enlarged prostate Diabetes mellitus, type 2 Social History Smoking Status: Never smoker alcohol intake: never current occupational status: other Travel in the last 8 weeks: None caffeine: No ROS Obtained: Yes All systems reviewed & no additional complaints except as documented Physical Exam General General appearance: alert and in no apparent distress Head Head exam: atraumatic and normocephalic Eye Eye exam: Present normal appearance, PERRL and EOMI ENT ENT exam: Present mucous membranes moist Neck Neck exam: Present normal inspection, full ROM and trachea midline Respiratory Respiratory exam: Absent respiratory distress, wheezes, stridor, accessory muscle use or prolonged expiratory phase Cardiovascular Cardiovascular exam: Present normal rhythm Abdominal Exam Abdominal exam: Present soft; Absent distention, tenderness, guarding, rebound or rigidity Extremities Exam Extremities exam: Absent edema Back Exam Back exam: Absent CVA tenderness (R) or CVA tenderness (L) Neurological Exam Neurological exam: Present alert, oriented X3, CN II-XII intact and normal gait; Absent motor sensory deficit Skin Skin exam: Present warm and dry; Absent diaphoresis or erythema Medical Decision Making Medical Records Medical records reviewed: Yes I reviewed the patient's medical records. Marv Inquiry Pt receiving controlled substance: No Marv was queried for this patient: No Vital Signs: 09/06/23 08:24 09/06/23 08:37 09/06/23 09:00 Temperature 97.5 F L Temperature Source Oral Pulse Rate 75 57 L Pulse Rate [Left Radial] 82 Respiratory Rate 19 Blood Pressure 138/93 H 110/74 Blood Pressure [Right Arm] 161/95 H Blood Pressure Mean [Right Arm] 117 02 Sat by Pulse Oximetry 98 99 96 Oxygen Delivery Method Room Air Room Air Room Air Lab Data Lab Results 09/06/23 08:25: Urine Color Yellow, Urine Appearance Clear, Urine pH 6.5, Ur Specific [place] 1.015, Urine Protein Negative, Urine Glucose (UA) Negative, Urine Ketones Negative, Urine Blood Negative, Urine Nitrate Negative, Urine Bilirubin Negative, Urine Urobilinogen 0.2, Ur Leukocyte Esterase Negative, Urine RBC None, Urine WBC Occasional, Ur Squamous Epith Cells Occasional, Urine Bacteria None 09/06/23 08:30: WBC 6.8, RBC 5.28, Hgb 16.1, Hct 49.6, MCV 94.0, MCH 30.5, MCHC 32.5, RDW 12.7, Plt Count 247, MPV 7.6, Neut % (Auto) 61.6, Lymph % (Auto) 25.0, [place] % (Auto) 6.1, Eos % (Auto) 5.5, Baso % (Auto) 1.8, Neut # (Auto) 4.2, Lymph # (Auto) 1.7, [place] # (Auto) 0.4, Eos # (Auto) 0.4, Baso # (Auto) 0.1, Sodium 138, Potassium 3.8, Chloride 100, Carbon Dioxide 33 H, Anion Gap 8.8, BUN 22 H, Creatinine 0.90, Estimated Creat Clear 79, Estimated GFR 86, Est GFR ( Amer) 105, Glucose 172 H, Calcium 9.6, Total Bilirubin 0.6, AST 41, ALT 45, Alkaline Phosphatase 103, Total Protein 7.3, Albumin 4.4, Globulin 2.9, Albumin/Globulin Ratio 1.5 09/06/23 08:30 09/06/23 08:30 Orders (Tests/Meds): ED MEDICATIONS Generic Name Dose Route Start Last Admin Trade Name Freq PRN Reason Stop Dose Admin Sodium Chloride 10 ml 09/06/23 08:38 Sodium Chloride 0.9% 10ml Flush Syringe IV 10/06/23 08:37 NEEDED PRN Maintain IV Site Discontinued Medications Generic Name Dose Route Start Last Admin Trade Name Freq PRN Reason Stop Dose Admin Ketorolac Tromethamine 15 mg 09/06/23 08:25 09/06/23 08:35 Ketorolac 30mg/Ml Vial IV 09/06/23 08:26 15 mg ONCE ONE Administration ORDERS Category Date Time Status CT abdomen pelvis wo con Stat Cat Scan 09/06/23 08:44 Taken CBC w/Auto Diff [Complete Blood Count Auto Diff] Stat Lab 09/06/23 08:30 Completed CMP [Comprehensive Metabolic Panel] Stat Lab 09/06/23 08:30 Completed UA [Urinalysis and Microscopic] Stat Lab 09/06/23 08:25 Completed Medical Decision Narrative: This is a very pleasant 57-year-old male with hypertension, numerous kidney stones necessitating instrumentation presenting with nephrolithiasis. Patient states that for the past 6 weeks has been having right flank pain that radiates anteriorly into his right lower quadrant. No dysuria or hematuria, patient thinks that his lower extremity swelling has gotten worse since the start. Has been following with his urologist, urologist stated that he is able to follow-up on second week of September, but patient pain became worse. Called urologist, urologist recommended they come to the emergency department for further evaluation. Patient denies fevers or chills, nausea or vomiting, bowel dysfunction, or any other concerns. Still up to urinate without issue. History was obtained via conversation with patient and family. On arrival, patient hemodynamically stable, alert, oriented x4, appropriate, GCS 15, moving all extremities spontaneously, pupils equal and reactive to light. Full physical exam performed and significant for very well-appearing male no acute distress. Sitting on the edge of the bed, not moving much, likely secondary to discomfort. Abdomen is soft, nontender, nondistended. No flank tenderness. No overlying skin changes or rash. Differential includes nephrolithiasis, cholecystitis, UTI, pyelonephritis, among others. Patient was given Toradol for symptomatic management and correction of underlying abnormalities. Workup independently interpreted and significant for normal kidney function. Nonactionable urine without hematuria or infection. CT abdomen pelvis without contrast with right-sided nephrolithiasis still contained within kidney greatest diameter 1 cm. See radiology read for full review of final results. On reevaluation, feeling much better. Results were relayed to patient and family, they requested I call over to [facility], Dr. Zamora in urology, to see if I can have conversation with him regarding moving appointment forward. Placed into clinic was contacted, Dr. Zamora is not in office until 1 PM, and is currently 9:45 AM. Patient disc and packet from this emergency department visit will be printed, sent with patient. They will be able to call Dr. Zamora this afternoon when he is in clinic to set up closer appointment, given they are leaving town just after next appointment in a couple of weeks. Patient and family agreeable to this plan. Because patient at baseline without signs or symptoms of clinical decompensation, deemed appropriate for discharge. Results were relayed to patient who voiced understanding and were agreeable to outpatient management and follow up. I discussed my clinical impression with patient and answered all questions. At this time, the evidence for any other entities in the differential is insufficient to warrant any further testing or ED observation. This was explained as well. Advisory was given that persistent or worsening symptoms require further evaluation. I confirmed the understanding of this discussion. Critical Care Critical Care Time Critical Care Time: No
[2023-09-06 09:19] LABS: Squamous Epithelial Cell,Urine Occasional #/hpf (0-5); WBC,Urine Occasional #/hpf (0-3)
--- NOTE | 2023-09-06 09:19 | PC.NURSE ---
pt back to room via wheelchair
[2023-09-06 09:30] VITALS: BP 112/77; PULSE 60; O2SAT 96
--- NOTE | 2023-09-06 09:41 | PC.NURSE ---
Called [facility] to speak with Dr Zamora about this pt. Clin lime mixer tender advised that Dr Zamora didnt come in until ! debby.
--- NOTE | 2023-09-06 09:42 | PC.NURSE ---
radiology called for disk.
--- NOTE | 2023-09-06 10:08 | PC.NURSE ---
Checked on status of ct disc, radiology states it is finishing now.
[2023-09-06 10:11] VITALS: BP 108/74; PULSE 62; RESP 16; TEMP 36.5; O2SAT 97
== END 2023-09-06 10:16 | disposition home or self-care (01) ==
PROVIDERS: Emergency Provider Emergency Medicine; PCP Family Medicine
DX: N20.0 Calculus of kidney (principal); R10.31 Right lower quadrant pain; I10 Essential (primary) hypertension
CPT/HCPCS: 74176; 80053; 81001; 85025; 96374; 99284

== ENCOUNTER 2023-12-01 00:18 | Emergency (ER) | payer MEDICARE, OTHER, SELFPAY ==
[2023-12-01 00:31] VITALS: BP 157/94; PULSE 90; RESP 16; TEMP 36.5; O2SAT 100; BMI 24.7
--- NOTE | 2023-12-01 00:31 | ED_ITS ---
Discharge Plan Disposition Patient Disposition: Home, Self-Care Prescriptions Prescriptions: No Action metoprolol tartrate 50 MG tablet 50 mg PO DAILY fluticasone propionate 120 SPR/BOT bottle 1 spr NS BID tramadol 50 MG tablet 50 mg PO TID PRN (Reason: Moderate Pain) Qty: 10 0RF atorvastatin 10 mg tablet 10 mg PO DAILY sulfamethoxazole-trimethoprim 800-160 mg tablet See Rx Instructions .ROUTE .COMPLEX Patient Comments: TAKE 1 TABLET BY MOUTH TWICE DAILY FOR 10 DAYS Rx Instructions: TAKE 1 TABLET BY MOUTH TWICE DAILY FOR 10 DAYS baclofen 10 mg tablet See Rx Instructions .ROUTE .COMPLEX Patient Comments: TAKE 1 TABLET BY MOUTH EVERY 8 HOURS NEEDED Rx Instructions: TAKE 1 TABLET BY MOUTH EVERY 8 HOURS NEEDED lisinopril-hydrochlorothiazide 10-12.5 mg tablet 1 tab PO DAILY Patient Comments: TAKE 1 TABLET BY MOUTH ONCE DAILY cephalexin 500 mg capsule 500 mg PO QID Qty: 40 0RF Referrals Follow up/Referrals: Brody Aguila MD [Primary Care Provider] - See instructions Activity Restrictions/Add. Instructions Additional Instructions/Restrictions: Please follow-up with your primary care provider. Please return to the emergency department if you develop any new or worsening symptoms or become concerned for your health. Clinical Impressions Clinical Impression: Asymptomatic hypertension Discharge ED Provider: Valeriy Palm Adult HPI General Stated complaint: high bp Time Seen by Provider: 12/01/23 00:20 History of Present Illness HPI narrative: 58-year-old male presents with hypertension. He reports that his blood pressure normally runs in the 130s to 140s, but has been in the 150s to 160s for the last couple of days. This is coincided with an increase in physical activity and an increase in physical soreness. He reports that they have increased his activity and therapy. He was seen by his PCP and was given muscle relaxers and some pain medications today, but he still is having some bilateral pectoral soreness worse with movement after doing an arm workout on Monday. He denies any vision changes headache. He is on metoprolol and lisinopril/HCTZ for blood pressure. He has been taking it as prescribed. No recent changes. Related Data Home Medications Medication Instructions Recorded Confirmed metoprolol tartrate 50 mg tablet 50 mg PO DAILY heart 12/23/17 07/02/23 fluticasone propionate 50 1 spr NS BID allergies 05/15/19 mcg/actuation nasal spray,suspension atorvastatin 10 mg tablet 10 mg PO DAILY 07/02/23 07/02/23 baclofen 10 mg tablet See Rx Instructions .Route .COMPLEX 07/02/23 07/02/23 lisinopril 10 1 tab PO DAILY 07/02/23 07/02/23 mg-hydrochlorothiazide 12.5 mg tablet sulfamethoxazole 800 See Rx Instructions .Route .COMPLEX 07/02/23 07/02/23 mg-trimethoprim 160 mg tablet Previous Rx's Medication Instructions Recorded tramadol 50 mg tablet 50 mg PO TID PRN Moderate Pain #10 06/05/20 tabs cephalexin 500 mg capsule 500 mg PO QID #40 caps 07/02/23 Allergies Allergy/AdvReac Type Severity Reaction Status Date / Time No Known Allergies Allergy Verified 07/05/23 19:31 [facility] Disclaimer: The information contained in this section may have been updated after the patient was seen, as this information can be updated by other users. Medical History (Updated 12/01/23 @ 00:31 by Valeriy Palm MD) History of seizure High cholesterol Kidney stones Enlarged prostate Diabetes mellitus, type 2 Social History Smoking Status: Never smoker alcohol intake: never current occupational status: other Travel in the last 8 weeks: None caffeine: No ROS Obtained: Yes All systems reviewed & no additional complaints except as documented Physical Exam General General appearance: alert and in no apparent distress Head Head exam: atraumatic and normocephalic Eye Eye exam: Present normal appearance, PERRL and EOMI ENT ENT exam: Present normal oropharynx and normal external ear exam Neck Neck exam: Present normal inspection and full ROM Chest Chest inspection: Present normal inspection, symmetric chest wall rise and tenderness (Bilateral lateral pectoral tenderness) Respiratory Respiratory exam: Present normal lung sounds bilaterally; Absent respiratory distress Cardiovascular Cardiovascular exam: Present regular rate and normal rhythm Abdominal Exam Abdominal exam: Present soft; Absent distention, tenderness or guarding Extremities Exam Extremities exam: Present normal inspection; Absent edema or joint swelling Back Exam Back exam: Present normal inspection; Absent tenderness Neurological Exam Neurological exam: Present alert and oriented X3; Absent motor sensory deficit Psychiatric Psychiatric exam: Present normal affect and normal mood Skin Skin exam: Present warm, dry and normal color Lymphatic Lymphatic Findings: no adenopathy Medical Decision Making Medical Records Medical records reviewed: Yes I reviewed the patient's medical records. Marv Inquiry Pt receiving controlled substance: No Marv was queried for this patient: No Lab Data Lab results reviewed: Yes I reviewed the patient's lab results. Medical Decision Narrative: 4-year-old male with history of chronic hypertension presents with hypertension at home for the last couple of days with blood pressure in the 150s to 160s.. History was obtained interactive discussion with patient. On arrival, patient is [afebrile, hemodynamically stable, satting appropriately, alert, oriented x4, GCS 15], moving all extremities spontaneously. Full physical exam performed and significant for no significant physical exam abnormalities Differential includes but is not limited to asymptomatic hypertension, hypertensive emergency, hypertensive urgency. Labs and imaging and EKG were considered but deemed unnecessary given history and exam. Given patient history, exam and workup, patient's presentation most likely represents asymptomatic hypertension. Extensive discussion with the patient regarding blood pressure control on a acute and chronic basis. Given return precautions for signs and symptoms of hypertensive emergency. Recommended he follow-up with PCP for further assessment. Patient discharged in stable condition. Procedures Risk/Benefits of Procedure(s) Were Explained: Yes Critical Care Critical Care Time Critical Care Time: No
[2023-12-01 00:47] VITALS: BP 118/82; PULSE 67; RESP 16; TEMP 36.5; O2SAT 100
== END 2023-12-01 00:49 | disposition home or self-care (01) ==
LOC: ER 00:35
PROVIDERS: Emergency Provider Emergency Medicine; PCP Family Medicine
DX: R07.89 Other chest pain (principal); I10 Essential (primary) hypertension
CPT/HCPCS: 99282

== ENCOUNTER 2023-12-01 11:00 | Outpatient (RCR) | payer MEDICARE, OTHER, SELFPAY | END 2023-12-01 11:05 | disposition home or self-care (01) | LOC: PT 11:00 | PROVIDERS: Visit Provider Family Medicine | DX: R07.1 Chest pain on breathing (principal) | CPT/HCPCS: 97010; 97014; 97035; 97110; 97140; 97163; 97164; G0283 ==

== ENCOUNTER 2023-12-02 00:34 | Inpatient (IN) | payer MEDICARE, OTHER, SELFPAY ==
[2023-12-02] VITALS (7 sets, daily range): BP systolic 109–151; BP diastolic 69–87; PULSE 60–73; RESP 18; TEMP 36.4–36.7; O2SAT 95–98; BMI 24.7; BMI 29.2
--- NOTE | 2023-12-02 00:46 | ED_ITS ---
Discharge Plan Disposition Chief Complaint: Urogenital-Male Prescriptions Prescriptions: No Action metoprolol tartrate 50 MG tablet 50 mg PO DAILY fluticasone propionate 120 SPR/BOT bottle 1 spr NS BID tramadol 50 MG tablet 50 mg PO TID PRN (Reason: Moderate Pain) Qty: 10 0RF atorvastatin 10 mg tablet 10 mg PO DAILY sulfamethoxazole-trimethoprim 800-160 mg tablet See Rx Instructions .ROUTE .COMPLEX Patient Comments: TAKE 1 TABLET BY MOUTH TWICE DAILY FOR 10 DAYS Rx Instructions: TAKE 1 TABLET BY MOUTH TWICE DAILY FOR 10 DAYS baclofen 10 mg tablet See Rx Instructions .ROUTE .COMPLEX Patient Comments: TAKE 1 TABLET BY MOUTH EVERY 8 HOURS NEEDED Rx Instructions: TAKE 1 TABLET BY MOUTH EVERY 8 HOURS NEEDED lisinopril-hydrochlorothiazide 10-12.5 mg tablet 1 tab PO DAILY Patient Comments: TAKE 1 TABLET BY MOUTH ONCE DAILY cephalexin 500 mg capsule 500 mg PO QID Qty: 40 0RF Discharge ED Provider: Valeriy Palm General Adult HPI General Chief complaint: Urogenital-Male Stated complaint: back pain, unable to use bathroom much,kidney pain Time Seen by Provider: 12/02/23 00:44 History of Present Illness HPI narrative: 58-year-old male presents with multiple complaints. He reports that he has noticed that his legs feel little bit more swollen than normal. He reports that he had some right-sided low back pain. Denies any neurologic symptoms. He reports that he feels like he is not peeing as much is normal, feels like he noticed in the last couple of hours. He was seen here yesterday for asymptomatic hypertension. He reports no changes in his blood pressure medication. He has been taking oxycodone for pain recently. Related Data Home Medications Medication Instructions Recorded Confirmed metoprolol tartrate 50 mg tablet 50 mg PO DAILY heart 12/23/17 07/02/23 fluticasone propionate 50 1 spr NS BID allergies 05/15/19 mcg/actuation nasal spray,suspension atorvastatin 10 mg tablet 10 mg PO DAILY 07/02/23 07/02/23 baclofen 10 mg tablet See Rx Instructions .Route .COMPLEX 07/02/23 07/02/23 lisinopril 10 1 tab PO DAILY 07/02/23 07/02/23 mg-hydrochlorothiazide 12.5 mg tablet sulfamethoxazole 800 See Rx Instructions .Route .COMPLEX 07/02/23 07/02/23 mg-trimethoprim 160 mg tablet Previous Rx's Medication Instructions Recorded tramadol 50 mg tablet 50 mg PO TID PRN Moderate Pain #10 06/05/20 tabs cephalexin 500 mg capsule 500 mg PO QID #40 caps 07/02/23 Allergies Allergy/AdvReac Type Severity Reaction Status Date / Time No Known Allergies Allergy Verified 12/02/23 00:55 [facility] Disclaimer: The information contained in this section may have been updated after the patient was seen, as this information can be updated by other users. Medical History (Updated 12/01/23 @ 00:31 by Valeriy Palm MD) History of seizure High cholesterol Kidney stones Enlarged prostate Diabetes mellitus, type 2 Social History Smoking Status: Never smoker alcohol intake: never current occupational status: other Travel in the last 8 weeks: None caffeine: No ROS Obtained: Yes All systems reviewed & no additional complaints except as documented Physical Exam General General appearance: alert and in no apparent distress Head Head exam: atraumatic and normocephalic Eye Eye exam: Present normal appearance, PERRL and EOMI ENT ENT exam: Present normal oropharynx and normal external ear exam Neck Neck exam: Present normal inspection and full ROM Chest Chest inspection: Present normal inspection and symmetric chest wall rise; Absent tenderness Respiratory Respiratory exam: Present normal lung sounds bilaterally; Absent respiratory distress Cardiovascular Cardiovascular exam: Present regular rate and normal rhythm Abdominal Exam Abdominal exam: Present soft; Absent distention, tenderness or guarding Extremities Exam Extremities exam: Present normal inspection and edema (1+ bilateral lower extremity); Absent joint swelling Back Exam Back exam: Present normal inspection; Absent tenderness Neurological Exam Neurological exam: Present alert and oriented X3; Absent motor sensory deficit Psychiatric Psychiatric exam: Present normal affect and normal mood Skin Skin exam: Present warm, dry and normal color Lymphatic Lymphatic Findings: no adenopathy Medical Decision Making Medical Records Medical records reviewed: Yes I reviewed the patient's medical records. Marv Inquiry Pt receiving controlled substance: No Marv was queried for this patient: No Vital Signs: 12/02/23 00:37 12/02/23 03:00 Temperature 97.9 F Temperature Source Oral Pulse Rate 64 Pulse Rate [Left Radial] 69 Respiratory Rate 18 Blood Pressure 146/86 H Blood Pressure [Right Arm] 151/87 H Blood Pressure Mean 102 Blood Pressure Mean [Right Arm] 108 Blood Pressure Source [Right Arm] Automatic Cuff Blood Pressure Position [Right Arm] Sitting 02 Sat by Pulse Oximetry 98 97 Oxygen Delivery Method Room Air Room Air Lab Data Lab results reviewed: Yes I reviewed the patient's lab results. Lab Results 12/02/23 00:14: Urine Sodium 24.0 L 12/02/23 01:02: WBC 7.5, RBC 4.54 L, Hgb 14.1, Hct 42.3, MCV 93.0, MCH 31.1, MCHC 33.4, RDW 13.8, Plt Count 225, MPV 7.7, Neut % (Auto) 64.7, Lymph % (Auto) 23.1, [place] % (Auto) 6.2, Eos % (Auto) 4.5, Baso % (Auto) 1.5, Neut # (Auto) 4.9, Lymph # (Auto) 1.7, [place] # (Auto) 0.5, Eos # (Auto) 0.3, Baso # (Auto) 0.1, S odium 123 L, Potassium 3.7, Chloride 87 L, Carbon Dioxide 28, Anion Gap 11.7, BUN 19, Creatinine 0.90, Estimated Creat Clear 78, Estimated GFR 86, Est GFR ( Amer) 104, Glucose 134 H, Calcium 8.9, Total Bilirubin 0.9, AST 32, ALT 28, Alkaline Phosphatase 117, NT-Pro-B Natriuret Pep 74.9, Total Protein 7.1, Albumin 4.3, Globulin 2.8, Albumin/Globulin Ratio 1.5, TSH 1.09, Thyroxine (T4) 10.1 12/02/23 01:14: Urine Color Yellow, Urine Appearance Clear, Urine pH 6.0, Ur Specific [place] 1.015, Urine Protein Negative, Urine Glucose (UA) Negative, Urine Ketones Negative, Urine Blood Negative, Urine Nitrate Negative, Urine Bilirubin Negative, Urine Urobilinogen 0.2, Ur Leukocyte Esterase Negative, Urine RBC None, Urine WBC Occasional, Ur Squamous Epith Cells Occasional, Urine Bacteria None 12/02/23 02:25: Sodium 123 L 12/02/23 01:02 12/02/23 02:25 Orders (Tests/Meds): ED MEDICATIONS Generic Name Dose Route Start Last Admin Trade Name Freq PRN Reason Stop Dose Admin Sodium Chloride 1,000 mls @ 999 mls/hr 12/02/23 03:15 Sod Chlor 0.9% 1000ml Bag IV 12/02/23 04:15 .Q1H1M SB Discontinued Medications Generic Name Dose Route Start Last Admin Trade Name Freq PRN Reason Stop Dose Admin Midazolam HCl 5 mg 12/02/23 02:12 12/02/23 02:14 Midazolam 5mg/Ml 1ml Vial IV 12/02/23 02:13 Not Given ONCE ONE ORDERS Category Date Time Status BNP [NT Pro Brain Natriuretic Pep.] Stat Lab 12/02/23 01:02 Completed CBC w/Auto Diff [Complete Blood Count Auto Diff] Stat Lab 12/02/23 01:02 Completed CMP [Comprehensive Metabolic Panel] Stat Lab 12/02/23 01:02 Completed Sodium Stat Lab 12/02/23 02:25 Completed Sodium,Urine Random Stat Lab 12/02/23 00:14 Completed T4 (Thyroxine) Stat Lab 12/02/23 01:02 Completed TSH [Thyroid Stimulating Hormone] Stat Lab 12/02/23 01:02 Completed UA [Urinalysis and Microscopic] Stat Lab 12/02/23 01:14 Completed Medical Decision Narrative: 58-year-old male with history of hypertension presents for multiple complaints including feeling like he is peeing less than normal today, slightly more edema in his extremities than normal today, right-sided low back pain. History was obtained interactive discussion with patient. On arrival, patient is [afebrile, hemodynamically stable, satting appropriately, alert, oriented x4, GCS 15], moving all extremities spontaneously. Full physical exam performed and significant for 1+ lower extremity pitting edema, clear lungs bilaterally, no significant flank or abdominal tenderness. No midline spinal tenderness. Differential includes but is not limited to [place], UTI, ureterolithiasis, musculoskeletal back pain, heart failure, electrolyte derangement. Workup initiated including CBC CMP BNP TSH T4 urinalysis. On re-evaluation, patient [remains afebrile, HD stable.] Laboratory workup independently interpreted by me and significant for moderate to severe hyponatremia with sodium of 123, chloride also low at 87, no leukocytosis, normal renal function, normal LFTs, BNP within normal limits, TSH and T4 normal. Given abnormal sodium, we will recheck. Sodium recheck is again 123. Urine sodium is appropriately low at 24. Urine osmolarity is normal. CT scan of the abdomen pelvis to assess for nephrolithiasis was considered, but deemed unnecessary due to exam not consistent with kidney stones, urine without red blood cells. Given patient history, exam and workup, patient's presentation most likely represents acute hyponatremia of uncertain etiology., Given this I think patient would benefit from admission for further workup. He was given a liter of IV normal saline and admitted to the hospitalist in stable condition. Procedures Risk/Benefits of Procedure(s) Were Explained: Yes Critical Care Critical Care Time Critical Care Time: No
[2023-12-02 01:09] LABS: Basophils # 0.1 K/mm3 (0-0.2); Basophils % 1.5 % (0.1-2.0); Eosinophils # 0.3 K/mm3 (0.0-0.4); Eosinophils % 4.5 % (0.1-12.0); Hematocrit 42.3 % (42.0-52.0); Hemoglobin 14.1 g/dL (14.1-18.0); Lymphocytes # 1.7 K/mm3 (0.7-4.5); Lymphocytes % 23.1 % (10-50); Mean Corpuscular HGB Conc 33.4 g/dL (31.8-35.4); Mean Corpuscular Hemoglobin 31.1 pg (27.0-31.2); Mean Platelet Volume 7.7 fl (7.4-10.4); Monocytes # 0.5 K/mm3 (0.1-1.0); Monocytes % 6.2 % (1.7-9.3); Neutrophils # 4.9 K/mm3 (1.8-7.8); Neutrophils % 64.7 % (37.0-80.0); Platelet Count 225 K/mm3 (142-424); Red Blood Count 4.54 M/mm3 (4.60-6.20); Red Cell Distribution Width 13.8 % (11.5-17.5); White Blood Count 7.5 K/mm3 (4.8-10.8)
[2023-12-02 01:15] LABS: Alanine Aminotransferase 28 U/L (12-78); Albumin Level 4.3 g/dl (3.5-5.0); Albumin/Globulin Ratio 1.5 (1.1-1.8); Alkaline Phosphatase 117 U/L (38-126); Anion Gap 11.7 mEq/L (5-15); Aspartate Amino Transferase 32 U/L (17-59); Bilirubin,Total 0.9 mg/dl (0.2-1.3); Blood Urea Nitrogen 19 mg/dl (9-20); Calcium 8.9 mg/dl (8.4-10.2); Carbon Dioxide 28 mmol/L (22.0-30.0); Chloride 87 mmol/L (98-107); Creatinine Clearance Estimated 78 mL/min (50-200); Estimated Glomerular Filt Rate 86 ml/min (>60); GFR (African American) 104 ML/MIN (>60); Globulin 2.8 g/dL (1.3-3.2); Glucose 134 mg/dl (74-100); Potassium 3.7 mmoL/L (3.5-5.1); Sodium 123 mmol/L (136-145); Total Protein,Serum 7.1 g/dl (6.3-8.2)
[2023-12-02 01:19] LABS: Microscopic, Urine URINE MICROSCOPIC (MICROSCOPIC)
[2023-12-02 01:21] LABS: Appearance,Urine CLEAR (Clear); Bilirubin,Urine Negative (Negative); Blood, Urine Negative (Negative); Color,Urine YELLOW (Yellow); Glucose,Urine (UA) Negative (Negative); Ketones,Urine Negative (Negative); Leukocyte Esterase,Urine Negative (Negative); Nitrate,Urine Negative (Negative); Protein,Urine Negative (Negative); Specific Gravity, Urine 1.015 (1.005-1.030); Urobilinogen,Urine 0.2 EU/dl (0.2)
[2023-12-02 01:27] LABS: Squamous Epithelial Cell,Urine Occasional #/hpf (0-5); WBC,Urine Occasional #/hpf (0-3)
[2023-12-02 01:32] LABS: T4 (Thyroxine) 10.1 ug/dl (5.53-11.0)
[2023-12-02 01:42] LABS: NT Pro Brain Natriuretic Pep. 74.9 pg/mL (0-125)
[2023-12-02 01:46] LABS: Thyroid Stimulating Hormone 1.09 uIU/mL (0.465-4.68)
[2023-12-02 02:42] LABS: Sodium 123 mmol/L (136-145)
--- NOTE | 2023-12-02 03:05 | PC.NURSE ---
call placed to house for a bed assignment.
[2023-12-02] MEDS: 0.9 % SODIUM CHLORIDE 1000ML 1,000 ML 999 ML IV (03:08)
--- NOTE | 2023-12-02 03:12 | EXP.HP ---
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 He reports that one of his main worry is that he has noticed that his legs feel little bit more swollen than normal. He also reports that he had some right-sided low back pain. Denies any neurologic symptoms. He reports that he feels like he is not peeing as much is normal, feels like he noticed in the last couple of hours. He was seen here yesterday for asymptomatic hypertension. He reports no changes in his blood pressure medication. He has been taking oxycodone for pain recently. Admitted for further work up and management. [facility] Disclaimer: The information contained in this section may have been updated after the patient was seen, as this information can be updated by other users. Medical History (Updated 12/02/23 @ 06:11 by Thom Pate APRN) Cerebral palsy History of seizure High cholesterol Kidney stones Enlarged prostate Diabetes mellitus, type 2 Surgical History (Updated 12/02/23 @ 03:50 by Selina Deluca RN) Hx of lithotripsy History of surgery on lower extremity Social History Smoking Status: Never smoker alcohol intake: never current occupational status: other Travel in the last 8 weeks: None caffeine: No Review of Systems Review of Systems Review of systems:: pertinent systems reviewed and negative unless documented below Meds Home Medications and Allergies Home Medications Medication Instructions Recorded Confirmed Type metoprolol tartrate 50 mg tablet 50 mg PO BID 12/23/17 12/02/23 History fluticasone propionate 50 1 spr NS BID allergies 05/15/19 12/02/23 History mcg/actuation nasal spray,suspension atorvastatin 10 mg tablet 10 mg PO DAILY 07/02/23 12/02/23 History lisinopril 10 1 tab PO DAILY 07/02/23 12/02/23 History mg-hydrochlorothiazide 12.5 mg tablet carisoprodol 350 mg tablet 350 mg PO TID 12/02/23 12/02/23 History hydrocodone 7.5 mg-acetaminophen 1 tab PO Q6HP PRN Moderate Pain 12/02/23 12/02/23 History 325 mg tablet (Scale Score 5-6) New Prescriptions to Start Prescriptions: Allergies Allergy/AdvReac Type Severity Reaction Status Date / Time No Known Allergies Allergy Verified 12/02/23 00:55 Exam Data for Last 24 hours Vital signs and Labs for Last 24 Hours: Temp Pulse Resp BP Pulse Ox O2 Del Method 97.9 F 64 18 146/86 H 97 Room Air 12/02/23 00:37 12/02/23 03:00 12/02/23 00:37 12/02/23 03:00 12/02/23 03:00 12/02/23 03:00 Laboratory Results - last 24 hr 12/02/23 00:14: Urine Sodium 24.0 L 12/02/23 01:02: WBC 7.5, RBC 4.54 L, Hgb 14.1, Hct 42.3, MCV 93.0, MCH 31.1, MCHC 33.4, RDW 13.8, Plt Count 225, MPV 7.7, Neut % (Auto) 64.7, Lymph % (Auto) 23.1, [place] % (Auto) 6.2, Eos % (Auto) 4.5, Baso % (Auto) 1.5, Neut # (Auto) 4.9, Lymph # (Auto) 1.7, [place] # (Auto) 0.5, Eos # (Auto) 0.3, Baso # (Auto) 0.1, Sodium 123 L, Potassium 3.7, Chloride 87 L, Carbon Dioxide 28, Anion Gap 11.7, BUN 19, Creatinine 0.90, Estimated Creat Clear 78, Estimated GFR 86, Est GFR ( Amer) 104, Glucose 134 H, Calcium 8.9, Total Bilirubin 0.9, AST 32, ALT 28, Alkaline Phosphatase 117, NT-Pro-B Natriuret Pep 74.9, Total Protein 7.1, Albumin 4.3, Globulin 2.8, Albumin/Globulin Ratio 1.5, TSH 1.09, Thyroxine (T4) 10.1 12/02/23 01:14: Urine Color Yellow, Urine Appearance Clear, Urine pH 6.0, Ur Specific [place] 1.015, Urine Protein Negative, Urine Glucose (UA) Negative, Urine Ketones Negative, Urine Blood Negative, Urine Nitrate Negative, Urine Bilirubin Negative, Urine Urobilinogen 0.2, Ur Leukocyte Esterase Negative, Urine RBC None, Urine WBC Occasional, Ur Squamous Epith Cells Occasional, Urine Bacteria None 12/02/23 02:25: Sodium 123 L I & O for Last 24 hours: Intake & Output 11/29/23 11/30/23 12/01/23 12/02/23 23:59 23:59 23:59 23:59 Weight 63.503 kg Constitutional Constitutional: mild distress and cooperative *Routine HEENT Exam Head: Present normocephalic Eye: Present EOMI and PERRL ENT: Present mucous membranes moist *Routine Neck Exam Neck: Present supple; Absent lymphadenopathy *Routine Respiratory Exam Respiratory: Present CTA bilaterally, normal respiratory effort and symmetric chest movement; Absent respiratory distress *Routine Cardiovascular Exam Cardiovascular: Present RRR, Normal S1 and Normal S2 *Routine Abdominal Exam Abdominal: Present soft and normoactive bowel sounds; Absent tenderness *Routine Rectal Exam Rectal:: deferred *Routine Genitalia Exam Genitalia:: deferred *Routine Extremities Exam Extremities: Absent cyanosis, clubbing, edema or full ROM Comments: spastic paraplegia *Routine Skin Exam Skin: Present warm; Absent rash *Routine Neurological Exam Neurological: Present alert, oriented X3, motor deficit and moving all extremities; Absent normal reflexes or plantar reflex Routine Psychiatric Exam Psychiatric: Present normal thought process H&P: Result Imaging and Cardiology EKG: Status: image reviewed by me, Preliminary report and final report Assessment and Plan *Assessment and plan (1) Acute hyponatremia: Status: Acute Category: Medical Code(s): E87.1 - Hypo-osmolality and hyponatremia (2) Right nephrolithiasis: Status: Acute Category: Medical Code(s): N20.0 - Calculus of kidney (3) Hypertension: Status: Acute Qualifiers: Hypertension type: essential hypertension Qualified Code(s): I10 - Essential (primary) hypertension Category: Medical Code(s): I10 - Essential (primary) hypertension (4) Myelolipoma of left adrenal gland: Status: Acute Category: Medical Code(s): D17.79 - Benign lipomatous neoplasm of other sites (5) Diabetes mellitus, type 2: Status: Acute Qualifiers: Diabetes mellitus complication status: with other specified complication Diabetes mellitus intermediate manager insulin use: without intermediate manager use Qualified Code(s): E11.69 - Type 2 diabetes mellitus with other specified complication Category: Medical Code(s): E11.9 - Type 2 diabetes mellitus without complications (6) Cerebral palsy: Status: Acute Qualifiers: Cerebral palsy type: spastic diplegic Qualified Code(s): G80.1 - Spastic diplegic cerebral palsy Category: Medical Code(s): G80.9 - Cerebral palsy, unspecified Plan 58-year-old male with 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 He reports that one of his main worry is that he has noticed that his legs feel little bit more swollen than normal. on arrival initial work up was grossly negative. Patient Na found on 123. Ua is clear. No edema on bilateral lower leg. Due to the acute of the hyponatremia. Patient was deemed for inpatient management. Discussed with ED about initial findings and work up. Agreed for admission for further management. Plan ad follow: -Acute hyponatremia: Suspected secondary to diuresis plus excessive hydration. Condition to rule out primary aldosteronism- Admit patient for inpatient management dispo MedSurg Give her 100 mL bolus hypertonic solution 3% sodium [facility]. Obtain CMP Obtain aldosterone and renin Monitor for seizure -History of right nephrolithiasis, status post lithotripsy: Patient complaining of pain on her lower back UA is clear, and negative for blood Will repeat the CT scan for assessment -History of hypertension: Resume lisinopril hydrochlorothiazide and metoprolol Left-sided adrenal glands incidental finding from 2 months ago Looks like benign myelolipoma. Will assess aldosterone and renin. Last CT showed 20 mm size -History of diabetes mellitus [id number]: Not on current treatment Obtain A1c Accu-Chek and sliding scale as needed and after meals -History of cerebral palsy: Presented with spastic diplegia. Patient independently performing his ADLs No need for physical therapy assessment at this point Lovenox for DVT prophylaxis. On Protonix for GI protection Full code
--- NOTE | 2023-12-02 03:18 | PC.NURSE ---
Nurse to nurse report to Selina MARIEE.
--- NOTE | 2023-12-02 03:32 | PC.NURSE ---
Patient arrived to floor via wheelchair from ED at 3:31.
[2023-12-02] MEDS: 0.9 % SODIUM CHLORIDE 1000ML 1,000 ML 100 ML IV (03:41)
--- NOTE | 2023-12-02 03:58 | PC.NURSE ---
When asking admission questions, patient answered to the best of his ability, several questions patient threw head back against bed and said oh my god , completed as patient allowed.
[2023-12-02] MEDS: ACETAMINOPHEN 325MG TAB 650 MG PO ×2 (04:24→16:31)
--- NOTE | 2023-12-02 05:02 | PC.NURSE ---
Pt is alert and oriented. Admitted this shift. Ambulates with forearm crutches. Uses urinal. Complains of chronic back pain, treated per mar. Lung sounds clear. Abdomen soft and nontender. 1+ edema noted to BLE. Call light in reach.
[2023-12-02] MEDS: SODIUM CHLORIDE 3 % 100 ML IV (06:00)
--- NOTE | 2023-12-02 06:01 | CT_ITS ---
PROCEDURE INFORMATION: Exam: CT Abdomen And Pelvis Without Contrast Exam date and time: 12/02/2023 6:26 AM Age: 58 years old Clinical indication: Pain; Other: Back; Additional info: Back pain TECHNIQUE: Imaging protocol: Computed tomography of the abdomen and pelvis without contrast. Radiation optimization: All CT scans at this facility use at least one of these dose optimization techniques: automated exposure control; mA and/or kV adjustment per patient size (includes targeted exams where dose is matched to clinical indication); or iterative reconstruction. COMPARISON: CT ABDOMEN PELVIS WO CON 09/06/2023 9:08 AM FINDINGS: Liver: Normal. No mass. Gallbladder and biliary ducts: Normal. No calcified stones. No ductal dilation. Pancreas: Normal. No ductal dilation. Spleen: Normal. No splenomegaly. Adrenal glands: Normal. No mass. Kidneys and ureters: 5 mm stone lower pole collecting system of the left kidney. Multiple small stones are seen in the lower pole collecting system of the right kidney. No evidence of urolithiasis. Stomach and bowel: Unremarkable. No obstruction. No mucosal thickening. Appendix: No evidence of appendicitis. Intraperitoneal space: Unremarkable. No free air. No significant fluid collection. Vasculature: Unremarkable. No abdominal aortic aneurysm. Lymph nodes: Unremarkable. No enlarged lymph nodes. Urinary bladder: Unremarkable as visualized. Reproductive: The prostate is prominent. Bones/joints: Unremarkable. No acute fracture. Soft tissues: Bilateral fat containing inguinal hernias. IMPRESSION: 1. Nonobstructing bilateral nephrolithiasis, no evidence of urolithiasis. 2. Prostatomegaly. 3. Fat containing bilateral inguinal hernias.
[2023-12-02 07:45] LABS: Chloride 102 mmol/L (98-107); Sodium 132 mmol/L (136-145)
[2023-12-02 07:46] LABS: Potassium 3.6 mmoL/L (3.5-5.1)
[2023-12-02 07:47] LABS: Basophils # 0.1 K/mm3 (0-0.2); Basophils % 0.7 % (0.1-2.0); Eosinophils # 0.2 K/mm3 (0.0-0.4); Hematocrit 41.1 % (42.0-52.0); Hemoglobin 13.7 g/dL (14.1-18.0); Lymphocytes # 1.2 K/mm3 (0.7-4.5); Mean Corpuscular HGB Conc 33.4 g/dL (31.8-35.4); Mean Corpuscular Hemoglobin 30.7 pg (27.0-31.2); Mean Platelet Volume 7.5 fl (7.4-10.4); Monocytes # 0.4 K/mm3 (0.1-1.0); Monocytes % 5.6 % (1.7-9.3); Neutrophils # 4.5 K/mm3 (1.8-7.8); Neutrophils % 71.6 % (37.0-80.0); Platelet Count 209 K/mm3 (142-424); Red Blood Count 4.47 M/mm3 (4.60-6.20); Red Cell Distribution Width 13.8 % (11.5-17.5); White Blood Count 6.2 K/mm3 (4.8-10.8)
[2023-12-02 07:48] LABS: Alanine Aminotransferase 23 U/L (12-78); Albumin Level 3.6 g/dl (3.5-5.0); Albumin/Globulin Ratio 1.5 (1.1-1.8); Alkaline Phosphatase 111 U/L (38-126); Anion Gap 9.6 mEq/L (5-15); Aspartate Amino Transferase 28 U/L (17-59); Bilirubin,Total 0.7 mg/dl (0.2-1.3); Blood Urea Nitrogen 13 mg/dl (9-20); Calcium 8.5 mg/dl (8.4-10.2); Carbon Dioxide 24 mmol/L (22.0-30.0); Creatinine Clearance Estimated 138 mL/min (50-200); Estimated Glomerular Filt Rate 137 ml/min (>60); GFR (African American) 166 ML/MIN (>60); Globulin 2.4 g/dL (1.3-3.2); Glucose 119 mg/dl (74-100); Magnesium 1.8 mg/dl (1.6-2.3)
[2023-12-02 07:55] LABS: Hemoglobin A1C 6.1 % (4.0-6.0)
[2023-12-02] MEDS: METOPROLOL TARTRATE 50MG TABLET 50 MG PO ×2 (08:16→21:06)
[2023-12-02] MEDS: PANTOPRAZOLE 40MG TABLET 40 MG PO (08:16)
[2023-12-02] MEDS: DOCUSATE SODIUM 100 MG CAPSULE PO (08:16)
[2023-12-02] MEDS: LISINOPRIL/HCTZ 10-12.5MG TABLET 1 EACH PO (08:16)
[2023-12-02] MEDS: ENOXAPARIN 40MG/0.4ML SYRINGE 40 MG SQ (08:17)
--- NOTE | 2023-12-02 08:33 | HMH.PHAINT1 ---
Pharmacy Intervention Comments: MEDICATION RECONCILIATION COMPLETE USING EXTERNAL PHARMACY FILL HISTORY AND BRISEYDA REPORT.
[2023-12-02] MEDS: humaLOG 100 UNITS/ML 10ML VIAL (SSI) SQ (11:05)
[2023-12-02 11:09] LABS: POC Glucose,Bedside 167 (70-110)
[2023-12-02 16:35] LABS: POC Glucose,Bedside 111 (70-110)
--- NOTE | 2023-12-02 16:40 | PC.NURSE ---
pt has overall had a good day. pt has had no complaints throughout this shift. pt remains on room air and seizure pads are still in place.pt's sodium this morning was 130. no new orders at this time. call light within reach.
[2023-12-02] MEDS: ATORVASTATIN 10MG TABLET 10 MG PO (21:06)
[2023-12-03 04:00] VITALS: BP 101/63; PULSE 61; RESP 18; TEMP 36.6; O2SAT 98; BMI 28.5
--- NOTE | 2023-12-03 04:47 | PC.NURSE ---
Pt is alert and oriented x4 and currently toleratig RA well. Pt denies pain or other needs, seizure pads still in place. Pt has slept well this shift with sister at bedside. No acute changes noted.
--- OUTSIDE RECORDS SUMMARY | 2023-12-03 06:49 | XMS_ITS ---
Author Name Unknown Organization [facility] No information ASSESSMENT No information CHIEF COMPLAINT No information Medications Date Medication Dosage Dosageunit Startdate Active Dispense Refills Ndccode Isprescription Srcstatus 10/11 00:00 :00 Atorvastati n Calcium 10 MG Tablet null 1 90 Tablet 0 95638357 916 Start 10/11 00:00 :00 Atorvastati n Calcium 10 MG Tablet null 0 90 Tablet 4 16007213 698 Stop 10/10 00:00 :00 Atorvastati n Calcium 10 MG Tablet null 1 90 Tablet 4 [id number] 698 P Taking 10/05 00:00 :00 Atorvastati n Calcium 10 MG Tablet null 1 90 Tablet 4 [id number] 698 P Taking 10/02 00:00 :00 Atorvastati n Calcium 10 MG Tablet null 1 90 Tablet 4 [id number] 698 P Taking 09/26 00:00 :00 Atorvastati n Calcium 10 MG Tablet null 1 90 Tablet 4 39683490 698 P Taking 08/28 00:00 :00 Atorvastati n Calcium 10 MG Tablet null 1 90 Tablet 4 [id number] 698 P Taking 08/01 00:00 :00 Atorvastati n Calcium 10 MG Tablet null 1 90 Tablet 4 [id number] 698 P Taking 07/19 00:00 :00 Atorvastati n Calcium 10 MG Tablet null 1 90 Tablet 4 [id number] 698 P Taking 07/18 00:00 :00 Atorvastati n Calcium 10 MG Tablet null 1 90 Tablet 4 [id number] 698 P Taking 07/07 00:00 :00 Atorvastati n Calcium 10 MG Tablet null 1 90 Tablet 4 [id number] 698 P Taking 07/06 00:00 :00 Atorvastati n Calcium 10 MG Tablet null 1 90 Tablet 4 [id number] 698 P Taking 07/04 00:00 :00 Atorvastati n Calcium 10 MG Tablet null 1 90 Tablet 4 [id number] 698 P Taking 06/28 00:00 :00 Atorvastati n Calcium 10 MG Tablet null 1 90 Tablet 4 [id number] 698 P Taking 06/13 00:00 :00 Atorvastati n Calcium 10 MG Tablet null 1 90 Tablet 4 [id number] 698 P Taking 05/17 00:00 :00 Atorvastati n Calcium 10 MG Tablet null 1 90 Tablet 4 97234898 698 P Taking 04/19 00:00 :00 Atorvastati n Calcium 10 MG Tablet null 1 90 Tablet 4 [id number] 698 P Taking 03/28 00:00 :00 Atorvastati n Calcium 10 MG Tablet null 1 90 Tablet 4 [id number] 698 P Taking 03/08 00:00 :00 Atorvastati n Calcium 10 MG Tablet null 1 90 Tablet 4 [id number] 698 P Taking 02/22 00:00 :00 Atorvastati n Calcium 10 MG Tablet null 1 90 Tablet 4 [id number] 698 P Taking 02/07 00:00 :00 Atorvastati n Calcium 10 MG Tablet null 1 90 Tablet 4 [id number] 698 P Taking 02/03 00:00 :00 Atorvastati n Calcium 10 MG Tablet null 1 90 Tablet 4 [id number] 698 P Taking 12/26 00:00 :00 Atorvastati n Calcium 10 MG Tablet null 1 90 Tablet 4 [id number] 698 P Taking 12/20 00:00 :00 Atorvastati n Calcium 10 MG Tablet null 1 90 Tablet 4 [id number] 698 P Taking 10/10 00:00 :00 Azelastine HCl 137 MCG/SPR AY Solution 03/08/2023 00:00:00 1 1 1 [id number] 430 P Taking 10/05 00:00 :00 Azelastine HCl 137 MCG/SPR AY Solution 03/08/2023 00:00:00 1 1 1 [id number] 430 P Taking 10/02 00:00 :00 Azelastine HCl 137 MCG/SPR AY Solution 03/08/2023 00:00:00 1 1 1 [id number] 430 P Taking 09/26 00:00 :00 Azelastine HCl 137 MCG/SPR AY Solution 03/08/2023 00:00:00 1 1 1 [id number] 430 P Taking 08/28 00:00 :00 Azelastine HCl 137 MCG/SPR AY Solution 03/08/2023 00:00:00 1 1 1 [id number] 430 P Taking 08/01 00:00 :00 Azelastine HCl 137 MCG/SPR AY Solution 03/08/2023 00:00:00 1 1 1 [id number] 430 P Taking 07/19 00:00 :00 Azelastine HCl 137 MCG/SPR AY Solution 03/08/2023 00:00:00 1 1 1 [id number] 430 P Taking 07/18 00:00 :00 Azelastine HCl 137 MCG/SPR AY Solution 03/08/2023 00:00:00 1 1 1 [id number] 430 P Taking 07/07 00:00 :00 Azelastine HCl 137 MCG/SPR AY Solution 03/08/2023 00:00:00 1 1 1 [id number] 430 P Taking 07/06 00:00 :00 Azelastine HCl 137 MCG/SPR AY Solution 03/08/2023 00:00:00 1 1 1 [id number] 430 P Taking 07/04 00:00 :00 Azelastine HCl 137 MCG/SPR AY Solution 03/08/2023 00:00:00 1 1 1 [id number] 430 P Taking 06/28 00:00 :00 Azelastine HCl 137 MCG/SPR AY Solution 03/08/2023 00:00:00 1 1 1 [id number] 430 P Taking 06/13 00:00 :00 Azelastine HCl 137 MCG/SPR AY Solution 03/08/2023 00:00:00 1 1 1 [id number] 430 P Taking 05/17 00:00 :00 Azelastine HCl 137 MCG/SPR AY Solution 03/08/2023 00:00:00 1 1 1 [id number] 430 P Taking 04/19 00:00 :00 Azelastine HCl 137 MCG/SPR AY Solution 03/08/2023 00:00:00 1 1 1 [id number] 430 P Taking 03/28 00:00 :00 Azelastine HCl 137 MCG/SPR AY Solution 03/08/2023 00:00:00 1 1 1 [id number] 430 P Taking 03/08 00:00 :00 Azelastine HCl 137 MCG/SPR AY Solution 03/08/2023 00:00:00 1 1 1 [id number] 430 P Start 10/10 00:00 :00 Baclofen 20 MG Tablet null 1 90 5 69334868 760 P Taking 10/05 00:00 :00 Baclofen 20 MG Tablet null 1 90 5 [id number] 760 P Taking 10/02 00:00 :00 Baclofen 20 MG Tablet null 1 90 5 [id number] 760 P Taking 09/26 00:00 :00 Baclofen 20 MG Tablet null 1 90 5 [id number] 760 P Taking 08/28 00:00 :00 Baclofen 20 MG Tablet null 1 90 5 66993823 760 P Taking 08/01 00:00 :00 Baclofen 20 MG Tablet null 1 90 5 [id number] 760 P Taking 07/19 00:00 :00 Baclofen 20 MG Tablet null 1 90 5 [id number] 760 P Taking 07/18 00:00 :00 Baclofen 20 MG Tablet null 1 90 5 36911176 760 P Taking 07/07 00:00 :00 Baclofen 20 MG Tablet null 1 90 5 [id number] 760 P Taking 07/06 00:00 :00 Baclofen 20 MG Tablet null 1 90 5 [id number] 760 P Refill 07/06 00:00 :00 Baclofen 10 MG Tablet null 1 30 Tablet 0 [id number] 415 P Taking 07/04 00:00 :00 Baclofen 10 MG Tablet null 1 30 Tablet 0 [id number] 415 P Taking 06/28 00:00 :00 Baclofen 10 MG Tablet null 1 30 Tablet 0 [id number] 415 P Taking 06/13 00:00 :00 Baclofen 10 MG Tablet null 1 30 Tablet 0 [id number] 415 P Refill 06/13 00:00 :00 Baclofen 10 MG Tablet null 1 30 Tablet 0 [id number] 415 P Taking 05/17 00:00 :00 Baclofen 10 MG Tablet null 1 30 Tablet 0 62093801 415 P Refill 05/17 00:00 :00 Baclofen 10 MG Tablet null 1 30 Tablet 0 [id number] 415 Taking 04/19 00:00 :00 Baclofen 10 MG Tablet null 1 30 Tablet 0 [id number] 415 Taking 04/12 00:00 :00 Baclofen 10 MG Tablet null 1 30 Tablet 0 79964349 415 Start 04/12 00:00 :00 Baclofen 10MG null 0 30 Tablet 1 [id number] 415 Stop 03/28 00:00 :00 Baclofen 10 MG Tablet null 1 30 Tablet 0 [id number] 415 Taking 03/08 00:00 :00 Baclofen 10 MG Tablet null 1 30 Tablet 0 54343242 415 Start 03/08 00:00 :00 Baclofen 10 MG Tablet null 0 30 0 [id number] 001 Stop 03/08 00:00 :00 Baclofen 10 MG Tablet 12/15/2021 00:00:00 1 30 0 [id number] 001 P Refill 03/08 00:00 :00 Baclofen 10 MG Tablet 12/15/2021 00:00:00 1 30 1 [id number] 001 P Taking 02/22 00:00 :00 Baclofen 10 MG Tablet 12/15/2021 00:00:00 1 30 1 [id number] 001 P Taking 02/07 00:00 :00 Baclofen 10 MG Tablet 12/15/2021 00:00:00 1 30 1 [id number] 001 P Taking 02/03 00:00 :00 Baclofen 10 MG Tablet 12/15/2021 00:00:00 1 30 1 [id number] 001 P Taking 12/26 00:00 :00 Baclofen 10 MG Tablet 12/15/2021 00:00:00 1 30 1 [id number] 001 P Taking 12/20 00:00 :00 Baclofen 10 MG Tablet 12/15/2021 00:00:00 1 30 1 [id number] 001 P Continue 12/20 00:00 :00 Baclofen 10 MG Tablet 12/15/2021 00:00:00 1 24 1 [id number] 001 P Taking 10/02 00:00 :00 Cephalexin 250 MG Capsule null 0 40 0 [id number] 501 P Discontinu ed 09/26 00:00 :00 Cephalexin 250 MG Capsule null 1 40 0 [id number] 501 P Taking 08/28 00:00 :00 Cephalexin 250 MG Capsule null 1 40 0 30556050 501 P Taking 08/01 00:00 :00 Cephalexin 250 MG Capsule null 1 40 0 [id number] 501 P Taking 07/19 00:00 :00 Cephalexin 250 MG Capsule null 1 40 0 [id number] 501 P Taking 07/18 00:00 :00 Cephalexin 250 MG Capsule null 1 40 0 [id number] 501 P Refill 07/18 00:00 :00 Cephalexin 500 MG Capsule null 1 40 Capsule 55808510 905 Taking 02/03 00:00 :00 Ciprofloxac in HCl 0.3 % Solution 12/26/2022 00:00:00 0 1 0 [id number] 050 P Discontinu ed 12/26 00:00 :00 Ciprofloxac in HCl 0.3 % Solution 12/26/2022 00:00:00 1 1 0 [id number] 050 P Start 07/06 00:00 :00 Cyclobenzap rine HCl 10 MG Tablet 08/18/2021 00:00:00 0 30 Tablet 1 [id number] 201 P Discontinu ed 07/04 00:00 :00 Cyclobenzap rine HCl 10 MG Tablet 08/18/2021 00:00:00 1 30 Tablet 1 [id number] 201 P Taking 06/28 00:00 :00 Cyclobenzap rine HCl 10 MG Tablet 08/18/2021 00:00:00 1 30 Tablet 1 [id number] 201 P Taking 06/13 00:00 :00 Cyclobenzap rine HCl 10 MG Tablet 08/18/2021 00:00:00 1 30 Tablet 1 [id number] 201 P Taking 05/17 00:00 :00 Cyclobenzap rine HCl 10 MG Tablet 08/18/2021 00:00:00 1 30 Tablet 1 [id number] 201 P Taking 04/19 00:00 :00 Cyclobenzap rine HCl 10 MG Tablet 08/18/2021 00:00:00 1 30 Tablet 1 [id number] 201 P Taking 03/28 00:00 :00 Cyclobenzap rine HCl 10 MG Tablet 08/18/2021 00:00:00 1 30 Tablet 1 [id number] 201 P Taking 03/08 00:00 :00 Cyclobenzap rine HCl 10 MG Tablet 08/18/2021 00:00:00 1 30 Tablet 1 [id number] 201 P Taking 02/22 00:00 :00 Cyclobenzap rine HCl 10 MG Tablet 08/18/2021 00:00:00 1 30 Tablet 1 [id number] 201 P Taking 02/07 00:00 :00 Cyclobenzap rine HCl 10 MG Tablet 08/18/2021 00:00:00 1 30 Tablet 1 [id number] 201 P Taking 02/03 00:00 :00 Cyclobenzap rine HCl 10 MG Tablet 08/18/2021 00:00:00 1 30 Tablet 1 [id number] 201 P Taking 12/26 00:00 :00 Cyclobenzap rine HCl 10 MG Tablet 08/18/2021 00:00:00 1 30 Tablet 1 [id number] 201 P Taking 12/20 00:00 :00 Cyclobenzap rine HCl 10 MG Tablet 08/18/2021 00:00:00 1 30 Tablet 1 [id number] 201 P Taking 07/06 00:00 :00 Docusate Sodium 100 MG Capsule 04/07/2022 00:00:00 0 30 [id number] 510 P Discontinu ed 07/04 00:00 :00 Docusate Sodium 100 MG Capsule 04/07/2022 00:00:00 1 30 [id number] 510 P Taking 06/28 00:00 :00 Docusate Sodium 100 MG Capsule 04/07/2022 00:00:00 1 30 [id number] 510 P Taking 06/13 00:00 :00 Docusate Sodium 100 MG Capsule 04/07/2022 00:00:00 1 30 [id number] 510 P Taking 05/17 00:00 :00 Docusate Sodium 100 MG Capsule 04/07/2022 00:00:00 1 30 [id number] 510 P Taking 04/19 00:00 :00 Docusate Sodium 100 MG Capsule 04/07/2022 00:00:00 1 30 [id number] 510 P Taking 03/28 00:00 :00 Docusate Sodium 100 MG Capsule 04/07/2022 00:00:00 1 30 [id number] 510 P Taking 03/08 00:00 :00 Docusate Sodium 100 MG Capsule 04/07/2022 00:00:00 1 30 [id number] 510 P Taking 02/22 00:00 :00 Docusate Sodium 100 MG Capsule 04/07/2022 00:00:00 1 30 [id number] 510 P Taking 02/07 00:00 :00 Docusate Sodium 100 MG Capsule 04/07/2022 00:00:00 1 30 [id number] 510 P Taking 02/03 00:00 :00 Docusate Sodium 100 MG Capsule 04/07/2022 00:00:00 1 30 [id number] 510 P Taking 12/26 00:00 :00 Docusate Sodium 100 MG Capsule 04/07/2022 00:00:00 1 30 [id number] 510 P Taking 12/20 00:00 :00 Docusate Sodium 100 MG Capsule 04/07/2022 00:00:00 1 30 [id number] 510 P Taking 10/10 00:00 :00 Furosemide 20 MG Tablet 07/18/2023 00:00:00 1 30 0 [id number] 725 P Taking 10/05 00:00 :00 Furosemide 20 MG Tablet 07/18/2023 00:00:00 1 30 0 [id number] 725 P Taking 10/02 00:00 :00 Furosemide 20 MG Tablet 07/18/2023 00:00:00 1 30 0 [id number] 725 P Taking 09/26 00:00 :00 Furosemide 20 MG Tablet 07/18/2023 00:00:00 1 30 0 [id number] 725 P Taking 08/28 00:00 :00 Furosemide 20 MG Tablet 07/18/2023 00:00:00 1 30 0 [id number] 725 P Taking 08/01 00:00 :00 Furosemide 20 MG Tablet 07/18/2023 00:00:00 1 30 0 [id number] 725 P Taking 07/19 00:00 :00 Furosemide 20 MG Tablet 07/18/2023 00:00:00 1 30 0 [id number] 725 P Taking 07/18 00:00 :00 Furosemide 20 MG Tablet 07/18/2023 00:00:00 1 30 0 [id number] 725 P Start 10/10 00:00 :00 hydroCHLORO thiazide 12.5 MG Capsule 06/03/2020 00:00:00 1 90 Capsule 3 [id number] 001 P Taking 10/05 00:00 :00 hydroCHLORO thiazide 12.5 MG Capsule 06/03/2020 00:00:00 1 90 Capsule 3 [id number] 001 P Taking 10/02 00:00 :00 hydroCHLORO thiazide 12.5 MG Capsule 06/03/2020 00:00:00 1 90 Capsule 3 [id number] 001 P Taking 09/26 00:00 :00 hydroCHLORO thiazide 12.5 MG Capsule 06/03/2020 00:00:00 1 90 Capsule 3 [id number] 001 P Taking 08/28 00:00 :00 hydroCHLORO thiazide 12.5 MG Capsule 06/03/2020 00:00:00 1 90 Capsule 3 [id number] 001 P Taking 08/01 00:00 :00 hydroCHLORO thiazide 12.5 MG Capsule 06/03/2020 00:00:00 1 90 Capsule 3 [id number] 001 P Taking 07/19 00:00 :00 hydroCHLORO thiazide 12.5 MG Capsule 06/03/2020 00:00:00 1 90 Capsule 3 [id number] 001 P Taking 07/18 00:00 :00 hydroCHLORO thiazide 12.5 MG Capsule 06/03/2020 00:00:00 1 90 Capsule 3 [id number] 001 P Taking 07/07 00:00 :00 hydroCHLORO thiazide 12.5 MG Capsule 06/03/2020 00:00:00 1 90 Capsule 3 [id number] 001 P Taking 07/06 00:00 :00 hydroCHLORO thiazide 12.5 MG Capsule 06/03/2020 00:00:00 1 90 Capsule 3 [id number] 001 P Taking 07/04 00:00 :00 hydroCHLORO thiazide 12.5 MG Capsule 06/03/2020 00:00:00 1 90 Capsule 3 [id number] 001 P Taking 06/28 00:00 :00 hydroCHLORO thiazide 12.5 MG Capsule 06/03/2020 00:00:00 1 90 Capsule 3 [id number] 001 P Taking 06/13 00:00 :00 hydroCHLORO thiazide 12.5 MG Capsule 06/03/2020 00:00:00 1 90 Capsule 3 [id number] 001 P Taking 05/17 00:00 :00 hydroCHLORO thiazide 12.5 MG Capsule 06/03/2020 00:00:00 1 90 Capsule 3 [id number] 001 P Taking 04/19 00:00 :00 hydroCHLORO thiazide 12.5 MG Capsule 06/03/2020 00:00:00 1 90 Capsule 3 [id number] 001 P Taking 03/28 00:00 :00 hydroCHLORO thiazide 12.5 MG Capsule 06/03/2020 00:00:00 1 90 Capsule 3 [id number] 001 P Taking 03/08 00:00 :00 hydroCHLORO thiazide 12.5 MG Capsule 06/03/2020 00:00:00 1 90 Capsule 3 [id number] 001 P Taking 02/22 00:00 :00 hydroCHLORO thiazide 12.5 MG Capsule 06/03/2020 00:00:00 1 90 Capsule 3 [id number] 001 P Taking 02/07 00:00 :00 hydroCHLORO thiazide 12.5 MG Capsule 06/03/2020 00:00:00 1 90 Capsule 3 [id number] 001 P Taking 02/03 00:00 :00 hydroCHLORO thiazide 12.5 MG Capsule 06/03/2020 00:00:00 1 90 Capsule 3 [id number] 001 P Taking 12/26 00:00 :00 hydroCHLORO thiazide 12.5 MG Capsule 06/03/2020 00:00:00 1 90 Capsule 3 [id number] 001 P Taking 12/20 00:00 :00 hydroCHLORO thiazide 12.5 MG Capsule 06/03/2020 00:00:00 1 90 Capsule 3 [id number] 001 P Taking 10/10 00:00 :00 HYDROcodone -Acetaminop hen 7.5-325 MG Tablet 08/29/2023 00:00:00 1 40 Tablet 0 [id number] 501 P Taking 10/05 00:00 :00 HYDROcodone -Acetaminop hen 7.5-325 MG Tablet 08/29/2023 00:00:00 1 40 Tablet 0 [id number] 501 P Taking 10/02 00:00 :00 HYDROcodone -Acetaminop hen 7.5-325 MG Tablet 08/29/2023 00:00:00 1 40 Tablet 0 [id number] 501 P Taking 09/26 00:00 :00 HYDROcodone -Acetaminop hen 7.5-325 MG Tablet 08/29/2023 00:00:00 1 40 Tablet 0 [id number] 501 P Taking 08/28 00:00 :00 HYDROcodone -Acetaminop hen 7.5-325 MG Tablet 08/29/2023 00:00:00 1 40 Tablet 0 [id number] 501 P Start 07/06 00:00 :00 Lisinopril- hydroCHLORO thiazide 10-12.5 MG Tablet 10/15/2021 00:00:00 0 90 Tablet 3 [id number] 001 Discontinu ed 07/04 00:00 :00 Lisinopril- hydroCHLORO thiazide 10-12.5 MG Tablet 10/15/2021 00:00:00 1 90 Tablet 3 [id number] 001 Taking 06/28 00:00 :00 Lisinopril- hydroCHLORO thiazide 10-12.5 MG Tablet 10/15/2021 00:00:00 1 90 Tablet 3 [id number] 001 Taking 06/13 00:00 :00 Lisinopril- hydroCHLORO thiazide 10-12.5 MG Tablet 10/15/2021 00:00:00 1 90 Tablet 3 [id number] 001 Taking 05/17 00:00 :00 Lisinopril- hydroCHLORO thiazide 10-12.5 MG Tablet 10/15/2021 00:00:00 1 90 Tablet 3 [id number] 001 Taking 04/19 00:00 :00 Lisinopril- hydroCHLORO thiazide 10-12.5 MG Tablet 10/15/2021 00:00:00 1 90 Tablet 3 [id number] 001 Taking 03/28 00:00 :00 Lisinopril- hydroCHLORO thiazide 10-12.5 MG Tablet 10/15/2021 00:00:00 1 90 Tablet 3 [id number] 001 Taking 03/08 00:00 :00 Lisinopril- hydroCHLORO thiazide 10-12.5 MG Tablet 10/15/2021 00:00:00 1 90 Tablet 3 [id number] 001 Taking 02/22 00:00 :00 Lisinopril- hydroCHLORO thiazide 10-12.5 MG Tablet 10/15/2021 00:00:00 1 90 Tablet 3 [id number] 001 Taking 02/07 00:00 :00 Lisinopril- hydroCHLORO thiazide 10-12.5 MG Tablet 10/15/2021 00:00:00 1 90 Tablet 3 [id number] 001 Taking 02/03 00:00 :00 Lisinopril- hydroCHLORO thiazide 10-12.5 MG Tablet 10/15/2021 00:00:00 1 90 Tablet 3 [id number] 001 Taking 01/16 00:00 :00 Lisinopril- hydroCHLORO thiazide 10-12.5 MG Tablet 10/15/2021 00:00:00 1 90 Tablet 3 [id number] 001 Continue 12/26 00:00 :00 Lisinopril- hydroCHLORO thiazide 10-12.5 MG Tablet 10/15/2021 00:00:00 1 30 11 [id number] 001 Taking 12/20 00:00 :00 Lisinopril- hydroCHLORO thiazide 10-12.5 MG Tablet 10/15/2021 00:00:00 1 30 11 [id number] 001 Taking 10/10 00:00 :00 Metoprolol Tartrate 50 MG Tablet null 1 180 Tablet 1 [id number] 301 Taking 10/05 00:00 :00 Metoprolol Tartrate 50 MG Tablet null 1 180 Tablet 1 [id number] 301 Taking 10/02 00:00 :00 Metoprolol Tartrate 50 MG Tablet null 1 180 Tablet 1 [id number] 301 Taking 09/26 00:00 :00 Metoprolol Tartrate 50 MG Tablet null 1 180 Tablet 1 [id number] 301 Taking 09/04 00:00 :00 Metoprolol Tartrate 50 MG Tablet null 1 180 Tablet 1 [id number] 301 Start 09/04 00:00 :00 Metoprolol Tartrate 50 MG Tablet null 0 180 3 [id number] 059 Stop 08/28 00:00 :00 Metoprolol Tartrate 50 MG Tablet null 1 180 3 [id number] 059 P Taking 08/01 00:00 :00 Metoprolol Tartrate 50 MG Tablet null 1 180 3 [id number] 059 P Taking 07/19 00:00 :00 Metoprolol Tartrate 50 MG Tablet null 1 180 3 [id number] 059 P Taking 07/18 00:00 :00 Metoprolol Tartrate 50 MG Tablet null 1 180 3 [id number] 059 P Taking 07/07 00:00 :00 Metoprolol Tartrate 50 MG Tablet null 1 180 3 [id number] 059 P Taking 07/06 00:00 :00 Metoprolol Tartrate 50 MG Tablet null 1 180 3 [id number] 059 P Taking 07/04 00:00 :00 Metoprolol Tartrate 50 MG Tablet null 1 180 3 [id number] 059 P Taking 06/28 00:00 :00 Metoprolol Tartrate 50 MG Tablet null 1 180 3 [id number] 059 P Taking 06/13 00:00 :00 Metoprolol Tartrate 50 MG Tablet null 1 180 3 [id number] 059 P Taking 05/17 00:00 :00 Metoprolol Tartrate 50 MG Tablet null 1 180 3 [id number] 059 P Taking 04/19 00:00 :00 Metoprolol Tartrate 50 MG Tablet null 1 180 3 [id number] 059 P Taking 03/28 00:00 :00 Metoprolol Tartrate 50 MG Tablet null 1 180 3 [id number] 059 P Taking 03/08 00:00 :00 Metoprolol Tartrate 50 MG Tablet null 1 180 3 [id number] 059 P Taking 02/22 00:00 :00 Metoprolol Tartrate 50 MG Tablet null 1 180 3 [id number] 059 P Taking 02/07 00:00 :00 Metoprolol Tartrate 50 MG Tablet null 1 180 3 [id number] 059 P Taking 02/03 00:00 :00 Metoprolol Tartrate 50 MG Tablet null 1 180 3 [id number] 059 P Taking 12/26 00:00 :00 Metoprolol Tartrate 50 MG Tablet null 1 180 3 [id number] 059 P Taking 12/20 00:00 :00 Metoprolol Tartrate 50 MG Tablet null 1 180 3 [id number] 059 P Taking 07/04 00:00 :00 Mobic 7.5 MG Tablet 10/20/2021 00:00:00 1 15 Tablet 1 [id number] 314 P Taking 06/28 00:00 :00 Mobic 7.5 MG Tablet 10/20/2021 00:00:00 1 15 Tablet 1 [id number] 314 P Taking 06/13 00:00 :00 Mobic 7.5 MG Tablet 10/20/2021 00:00:00 1 15 Tablet 1 [id number] 314 P Taking 05/17 00:00 :00 Mobic 7.5 MG Tablet 10/20/2021 00:00:00 1 15 Tablet 1 [id number] 314 P Taking 04/19 00:00 :00 Mobic 7.5 MG Tablet 10/20/2021 00:00:00 1 15 Tablet 1 [id number] 314 P Taking 03/28 00:00 :00 Mobic 7.5 MG Tablet 10/20/2021 00:00:00 1 15 Tablet 1 [id number] 314 P Taking 03/08 00:00 :00 Mobic 7.5 MG Tablet 10/20/2021 00:00:00 1 15 Tablet 1 [id number] 314 P Taking 02/22 00:00 :00 Mobic 7.5 MG Tablet 10/20/2021 00:00:00 1 15 Tablet 1 [id number] 314 P Taking 02/07 00:00 :00 Mobic 7.5 MG Tablet 10/20/2021 00:00:00 1 15 Tablet 1 [id number] 314 P Taking 02/03 00:00 :00 Mobic 7.5 MG Tablet 10/20/2021 00:00:00 1 15 Tablet 1 [id number] 314 P Taking 12/26 00:00 :00 Mobic 7.5 MG Tablet 10/20/2021 00:00:00 1 15 Tablet 1 [id number] 314 P Taking 12/20 00:00 :00 Mobic 7.5 MG Tablet 10/20/2021 00:00:00 1 15 Tablet 1 [id number] 314 P Taking 10/02 00:00 :00 Nitrofurant oin Monohyd Macro 100 MG Capsule 09/29/2023 00:00:00 0 10 [id number] 201 P Discontinu ed 09/28 00:00 :00 Nitrofurant oin Monohyd Macro 100 MG Capsule 09/29/2023 00:00:00 1 10 [id number] 201 P Start 10/10 00:00 :00 OneTouch Delica Plus Vamhct65I - Miscellaneo us null 1 100 3 [id number] 810 P Taking 10/05 00:00 :00 OneTouch Delica Plus Jrwugd06H - Miscellaneo us null 1 100 3 [id number] 810 P Taking 10/02 00:00 :00 OneTouch Delica Plus Qurqwm39F - Miscellaneo us null 1 100 3 [id number] 810 P Taking 10/01 00:00 :00 OneTouch Delica Plus Qbjhbp88R - Miscellaneo us null 1 100 3 89829481 810 P Refill 09/26 00:00 :00 OneTouch Delica Plus Rilstg31L - Miscellaneo us null 1 100 3 [id number] 810 P Taking 08/28 00:00 :00 OneTouch Delica Plus Dfmxno17G - Miscellaneo us null 1 100 3 97361794 810 P Taking 08/01 00:00 :00 OneTouch Delica Plus Vhaccy28M - Miscellaneo us null 1 100 3 [id number] 810 P Taking 07/19 00:00 :00 OneTouch Delica Plus Hgahoo62P - Miscellaneo us null 1 100 3 82668582 810 P Taking 07/18 00:00 :00 OneTouch Delica Plus Clmmkb89X - Miscellaneo us null 1 100 3 29536732 810 P Taking 07/07 00:00 :00 OneTouch Delica Plus Qdtita27D - Miscellaneo us null 1 100 3 [id number] 810 P Taking 07/06 00:00 :00 OneTouch Delica Plus Rkcwse62V - Miscellaneo us null 1 100 3 99970002 810 P Taking 07/04 00:00 :00 OneTouch Delica Plus Oxijqz53L - Miscellaneo us null 1 100 3 46618799 810 P Taking 06/28 00:00 :00 OneTouch Delica Plus Fnjwbf40Z - Miscellaneo us null 1 100 3 [id number] 810 P Taking 06/13 00:00 :00 OneTouch Delica Plus Vsewrd08L - Miscellaneo us null 1 100 3 [id number] 810 P Taking 05/17 00:00 :00 OneTouch Delica Plus Wkyteg44W - Miscellaneo us null 1 100 3 [id number] 810 P Taking 05/10 00:00 :00 OneTouch Delica Plus Dfufta68Z - Miscellaneo us null 1 100 3 54383430 810 P Refill 05/08 00:00 :00 OneTouch Delica Plus Maamwd39A - Miscellaneo us null 1 100 Each 3 [id number] 810 Start 05/08 00:00 :00 OneTouch Delica Plus [id number] - Miscellaneo us null 0 100 3 [id number] 810 Stop 04/19 00:00 :00 OneTouch Delica Plus [id number] - Miscellaneo us null 1 100 3 [id number] 810 Taking 03/28 00:00 :00 OneTouch Delica Plus [id number] - Miscellaneo us null 1 100 3 [id number] 810 Taking 03/08 00:00 :00 OneTouch Delica Plus [id number] - Miscellaneo us null 1 100 3 [id number] 810 Taking 02/22 00:00 :00 OneTouch Delica Plus [id number] - Miscellaneo us null 1 100 3 [id number] 810 Taking 02/07 00:00 :00 OneTouch Delica Plus [id number] - Miscellaneo us null 1 100 3 [id number] 810 Taking 02/03 00:00 :00 OneTouch Delica Plus [id number] - Miscellaneo us null 1 100 3 [id number] 810 Taking 12/26 00:00 :00 OneTouch Del[employer] Plus [id number] - Miscellaneo us null 1 100 3 [id number] 810 Taking 12/20 00:00 :00 OneTouch Delica Plus [id number] - Miscellaneo us null 1 100 3 [id number] 810 Taking 10/10 00:00 :00 OneTouch Ultra System w/Devic e Kit 10/02/2023 00:00:00 1 1 2 P Taking 10/05 00:00 :00 OneTouch Ultra System w/Devic e Kit 10/02/2023 00:00:00 1 1 2 P Taking 10/02 00:00 :00 OneTouch Ultra System w/Devic e Kit 10/02/2023 00:00:00 1 1 2 P Taking 10/01 00:00 :00 OneTouch Ultra System w/Devic e Kit 10/02/2023 00:00:00 1 1 2 P Start 10/23 00:00 :00 OneTouch Ultra Test - null 1 100 Strip 0 P Ref ill 10/22 00:00 :00 OneTouch Ultra Test - null 1 100 Strip 0 P Ref ill 10/10 00:00 :00 OneTouch Ultra Test - null 1 100 Strip 0 P Jeremias ing 10/05 00:00 :00 OneTouch Ultra Test - null 1 100 Strip 0 P Jeremias ing 10/02 00:00 :00 OneTouch Ultra Test - null 1 100 Strip 0 P Jeremias ing 10/01 00:00 :00 OneTouch Ultra Test - null 1 100 Strip 0 P Ref ill 09/26 00:00 :00 OneTouch Ultra Test - null 1 100 Strip 0 P Jeremias ing 09/11 00:00 :00 OneTouch Ultra Test - null 1 100 Strip 0 P Ref ill 09/10 00:00 :00 OneTouch Ultra Test - null 1 100 Strip 0 P Ref ill 08/28 00:00 :00 OneTouch Ultra Test - null 1 100 Strip 0 P Jeremias ing 08/01 00:00 :00 OneTouch Ultra Test - null 1 100 Strip 0 P Jeremias ing 07/19 00:00 :00 OneTouch Ultra Test - null 1 100 Strip 0 P Jeremias ing 07/18 00:00 :00 OneTouch Ultra Test - null 1 100 Strip 0 P Ref ill 07/18 00:00 :00 OneTouch Ultra Test - null 1 100 Strip 3 Jeremias ing 07/07 00:00 :00 OneTouch Ultra Test - null 1 100 Strip 3 Jeremias ing 07/06 00:00 :00 OneTouch Ultra Test - null 1 100 Strip 3 Jeremias ing 07/04 00:00 :00 OneTouch Ultra Test - null 1 100 Strip 3 Jeremias ing 06/28 00:00 :00 OneTouch Ultra Test - null 1 100 Strip 3 Jeremias ing 06/13 00:00 :00 OneTouch Ultra Test - null 1 100 Strip 3 Jeremias ing 05/17 00:00 :00 OneTouch Ultra Test - null 1 100 Strip 3 Jeremias ing 04/19 00:00 :00 OneTouch Ultra Test - null 1 100 Strip 3 Jeremias ing 03/28 00:00 :00 OneTouch Ultra Test - null 1 100 Strip 3 Jeremias ing 03/08 00:00 :00 OneTouch Ultra Test - null 1 100 Strip 3 Jeremias ing 02/22 00:00 :00 OneTouch Ultra Test - null 1 100 Strip 3 Jeremias ing 02/07 00:00 :00 OneTouch Ultra Test - null 1 100 Strip 3 Jeremias ing 02/03 00:00 :00 OneTouch Ultra Test - null 1 100 Strip 3 Jeremias ing 12/26 00:00 :00 OneTouch Ultra Test - null 1 100 Strip 3 Jeremias ing 12/20 00:00 :00 OneTouch Ultra Test - null 1 100 Strip 3 Jeremias ing 10/10 00:00 :00 Soma 350 MG Tablet 10/11/2023 00:00:00 1 21 Tablet 0 [id number] 101 P Start 07/06 00:00 :00 Sudafed 30 MG Tablet 03/28/2023 00:00:00 0 30 0 [id number] 857 P Discontinu ed 07/04 00:00 :00 Sudafed 30 MG Tablet 03/28/2023 00:00:00 1 30 0 [id number] 857 P Taking 06/28 00:00 :00 Sudafed 30 MG Tablet 03/28/2023 00:00:00 1 30 0 [id number] 857 P Taking 06/13 00:00 :00 Sudafed 30 MG Tablet 03/28/2023 00:00:00 1 30 0 [id number] 857 P Taking 05/17 00:00 :00 Sudafed 30 MG Tablet 03/28/2023 00:00:00 1 30 0 [id number] 857 P Taking 04/19 00:00 :00 Sudafed 30 MG Tablet 03/28/2023 00:00:00 1 30 0 [id number] 857 P Taking 03/28 00:00 :00 Sudafed 30 MG Tablet 03/28/2023 00:00:00 1 30 0 [id number] 857 P Start 07/18 00:00 :00 Sulfamethox azole-Trime thoprim 800-160 MG Tablet 07/04/2023 00:00:00 0 20 Tablet 0 [id number] 561 P Discontinu ed 07/07 00:00 :00 Sulfamethox azole-Trime thoprim 800-160 MG Tablet 07/04/2023 00:00:00 1 20 Tablet 0 [id number] 561 P Taking 07/06 00:00 :00 Sulfamethox azole-Trime thoprim 800-160 MG Tablet 07/04/2023 00:00:00 1 20 Tablet 0 [id number] 561 P Taking 07/04 00:00 :00 Sulfamethox azole-Trime thoprim 800-160 MG Tablet 07/04/2023 00:00:00 1 20 Tablet 0 [id number] 561 P Start 07/04 00:00 :00 Sulfamethox azole-Trime thoprim 800-160 MG Tablet 06/28/2023 00:00:00 1 20 Tablet 0 [id number] 561 P Taking 06/28 00:00 :00 Sulfamethox azole-Trime thoprim 800-160 MG Tablet 06/28/2023 00:00:00 1 20 Tablet 0 [id number] 561 P Start 04/19 00:00 :00 Sulfamethox azole-Trime thoprim 800-160 MG Tablet 02/03/2023 00:00:00 0 20 0 [id number] 561 P Discontinu ed 03/28 00:00 :00 Sulfamethox azole-Trime thoprim 800-160 MG Tablet 02/03/2023 00:00:00 1 20 0 [id number] 561 P Taking 03/08 00:00 :00 Sulfamethox azole-Trime thoprim 800-160 MG Tablet 02/03/2023 00:00:00 1 20 0 [id number] 561 P Taking 02/22 00:00 :00 Sulfamethox azole-Trime thoprim 800-160 MG Tablet 02/03/2023 00:00:00 1 20 0 [id number] 561 P Taking 02/07 00:00 :00 Sulfamethox azole-Trime thoprim 800-160 MG Tablet 02/03/2023 00:00:00 1 20 0 [id number] 561 P Taking 02/03 00:00 :00 Sulfamethox azole-Trime thoprim 800-160 MG Tablet 02/03/2023 00:00:00 1 20 0 [id number] 561 P Start 10/10 00:00 :00 traMADol HCl 50 MG Tablet 08/08/2023 00:00:00 1 63 Tablet 0 [id number] 801 P Taking 10/05 00:00 :00 traMADol HCl 50 MG Tablet 08/08/2023 00:00:00 1 63 Tablet 0 [id number] 801 P Taking 10/02 00:00 :00 traMADol HCl 50 MG Tablet 08/08/2023 00:00:00 1 63 Tablet 0 [id number] 801 P Taking 09/26 00:00 :00 traMADol HCl 50 MG Tablet 08/08/2023 00:00:00 1 63 Tablet 0 [id number] 801 P Taking 08/28 00:00 :00 traMADol HCl 50 MG Tablet 08/08/2023 00:00:00 1 63 Tablet 0 [id number] 801 P Taking 08/07 00:00 :00 traMADol HCl 50 MG Tablet 08/08/2023 00:00:00 1 63 Tablet 0 [id number] 801 P Start 08/07 00:00 :00 traMADol HCl 50 MG Tablet 07/07/2023 00:00:00 0 [id number] 801 P Stop 08/01 00:00 :00 traMADol HCl 50 MG Tablet 07/07/2023 00:00:00 1 30 Tablet 0 [id number] 801 P Taking 07/19 00:00 :00 traMADol HCl 50 MG Tablet 07/07/2023 00:00:00 1 30 Tablet 0 [id number] 801 P Taking 07/18 00:00 :00 traMADol HCl 50 MG Tablet 07/07/2023 00:00:00 1 30 Tablet 0 [id number] 801 P Taking 07/07 00:00 :00 traMADol HCl 50 MG Tablet 07/07/2023 00:00:00 1 30 Tablet 0 [id number] 801 P Taking 07/06 00:00 :00 traMADol HCl 50 MG Tablet 07/06/2023 00:00:00 1 90 0 [id number] 501 P Refill 07/06 00:00 :00 traMADol HCl 50 MG Tablet 07/07/2023 00:00:00 1 30 Tablet 0 [id number] 801 P Start 07/06 00:00 :00 traMADol HCl 50 MG Tablet 06/13/2023 00:00:00 1 30 Tablet 0 [id number] 501 P Taking 07/04 00:00 :00 traMADol HCl 50 MG Tablet 06/13/2023 00:00:00 1 30 Tablet 0 [id number] 501 P Taking 06/28 00:00 :00 traMADol HCl 50 MG Tablet 06/13/2023 00:00:00 1 30 Tablet 0 [id number] 501 P Taking 06/13 00:00 :00 traMADol HCl 50 MG Tablet 06/13/2023 00:00:00 1 30 Tablet 0 [id number] 501 P Refill 06/13 00:00 :00 traMADol HCl 50 MG Tablet 05/17/2023 00:00:00 1 30 Tablet 0 [id number] 501 P Taking 05/17 00:00 :00 traMADol HCl 50 MG Tablet 05/17/2023 00:00:00 1 30 Tablet 0 [id number] 501 P Refill 05/17 00:00 :00 traMADol HCl 50 MG Tablet 03/08/2023 00:00:00 1 30 Tablet 0 [id number] 501 Taking 04/19 00:00 :00 traMADol HCl 50 MG Tablet 03/08/2023 00:00:00 1 30 Tablet 0 [id number] 501 Taking 03/28 00:00 :00 traMADol HCl 50 MG Tablet 03/08/2023 00:00:00 1 30 Tablet 0 [id number] 501 Taking 03/08 00:00 :00 traMADol HCl 50 MG Tablet 03/08/2023 00:00:00 1 30 Tablet 0 [id number] 501 Start 03/08 00:00 :00 traMADol HCl 50 MG Tablet null 0 30 1 [id number] 801 Stop 03/08 00:00 :00 traMADol HCl 50 MG Tablet 03/08/2023 00:00:00 1 30 1 [id number] 801 P Refill 03/08 00:00 :00 traMADol HCl 50 MG Tablet 12/20/2022 00:00:00 1 30 1 [id number] 801 P Taking 02/22 00:00 :00 traMADol HCl 50 MG Tablet 12/20/2022 00:00:00 1 30 1 [id number] 801 P Taking 02/07 00:00 :00 traMADol HCl 50 MG Tablet 12/20/2022 00:00:00 1 30 1 [id number] 801 P Taking 02/03 00:00 :00 traMADol HCl 50 MG Tablet 12/20/2022 00:00:00 1 30 1 [id number] 801 P Taking 12/26 00:00 :00 traMADol HCl 50 MG Tablet 12/20/2022 00:00:00 1 30 1 [id number] 801 P Taking 12/20 00:00 :00 traMADol HCl 50 MG Tablet 12/20/2022 00:00:00 1 30 1 [id number] 801 P Continue 12/20 00:00 :00 traMADol HCl 50 MG Tablet 10/26/2022 00:00:00 1 30 0 [id number] 801 P Taking OBJECTIVE DATA No information PHYSICAL EXAMINATION No information TREATMENT PLAN No information PROBLEMS No information RESULTS No information REVIEW OF SYSTEMS No information SUBJECTIVE DATA No information VITAL SIGNS No information
[2023-12-03 06:57] LABS: POC Glucose,Bedside 124 (70-110)
[2023-12-03 06:57] LABS: POC Glucose,Bedside 94 (70-110)
[2023-12-03 07:27] LABS: Chloride 103 mmol/L (98-107); Sodium 137 mmol/L (136-145)
[2023-12-03 07:28] LABS: Potassium 3.8 mmoL/L (3.5-5.1)
[2023-12-03 07:30] LABS: Alanine Aminotransferase 25 U/L (12-78); Albumin Level 4.3 g/dl (3.5-5.0); Albumin/Globulin Ratio 1.5 (1.1-1.8); Alkaline Phosphatase 83 U/L (38-126); Anion Gap 12.8 mEq/L (5-15); Aspartate Amino Transferase 30 U/L (17-59); Bilirubin,Total 0.7 mg/dl (0.2-1.3); Blood Urea Nitrogen 18 mg/dl (9-20); Carbon Dioxide 25 mmol/L (22.0-30.0); Creatinine Clearance Estimated 116 mL/min (50-200); Estimated Glomerular Filt Rate 115 ml/min (>60); GFR (African American) 139 ML/MIN (>60); Globulin 2.8 g/dL (1.3-3.2); Total Protein,Serum 7.1 g/dl (6.3-8.2)
[2023-12-03 07:31] LABS: Glucose 104 mg/dl (74-100)
[2023-12-03 07:36] LABS: Basophils # 0.1 K/mm3 (0-0.2); Eosinophils # 0.3 K/mm3 (0.0-0.4); Eosinophils % 3.8 % (0.1-12.0); Hematocrit 46.7 % (42.0-52.0); Lymphocytes # 1.5 K/mm3 (0.7-4.5); Lymphocytes % 23.4 % (10-50); Mean Corpuscular HGB Conc 32.6 g/dL (31.8-35.4); Mean Corpuscular Hemoglobin 30.5 pg (27.0-31.2); Mean Corpuscular Volume 93.4 fl (80-94); Mean Platelet Volume 7.4 fl (7.4-10.4); Monocytes # 0.4 K/mm3 (0.1-1.0); Monocytes % 6.6 % (1.7-9.3); Neutrophils # 4.3 K/mm3 (1.8-7.8); Neutrophils % 65.2 % (37.0-80.0); Platelet Count 215 K/mm3 (142-424); White Blood Count 6.5 K/mm3 (4.8-10.8)
[2023-12-03 07:47] LABS: Hemoglobin 15.4 g/dL (14.1-18.0)
[2023-12-03 08:00] VITALS: BP 115/70; PULSE 72; RESP 16; TEMP 36.4; O2SAT 97
[2023-12-03] MEDS: ENOXAPARIN 40MG/0.4ML SYRINGE 40 MG SQ (08:11)
[2023-12-03] MEDS: PANTOPRAZOLE 40MG TABLET 40 MG PO (08:11)
[2023-12-03] MEDS: METOPROLOL TARTRATE 50MG TABLET 50 MG PO (08:11)
[2023-12-03] MEDS: DOCUSATE SODIUM 100 MG CAPSULE PO (08:11)
[2023-12-03] MEDS: LISINOPRIL/HCTZ 10-12.5MG TABLET 1 EACH PO (08:11)
[2023-12-03 11:06] LABS: POC Glucose,Bedside 107 (70-110)
--- NOTE | 2023-12-03 14:10 | EXP.DC.SUM ---
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 He reports that one of his main worry is that he has noticed that his legs feel little bit more swollen than normal. He also reports that he had some right-sided low back pain. Denies any neurologic symptoms. He reports that he feels like he is not peeing as much is normal, feels like he noticed in the last couple of hours. He was seen here yesterday for asymptomatic hypertension. He reports no changes in his blood pressure medication. He has been taking oxycodone for pain recently. Admitted for further work up and management. 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 He reports that one of his main worry is that he has noticed that his legs feel little bit more swollen than normal. on arrival initial work up was grossly negative. Patient Na found on 123. Ua is clear. No edema on bilateral lower leg. Due to the acute of the hyponatremia. Patient was deemed for inpatient management. Discussed with ED about initial findings and work up. Agreed for admission for further management. Plan ad follow: -Acute hyponatremia: - improved ok to resume home diuretics, patient counseled to f/u with PCP and urology about kidney stones and incidental adrenal gland mass. Patient and family at bedside agreed with the discharge plan. On the date of discharge, the patient reported feeling stable. The patient was found not to be in any acute distress, and no new abnormalities on physical examination. Further, the patient expressed appropriate understanding of, and agreement with, the discharge recommendations, medications, and plan. Time spent 37 mins Exam Data for Last 24 hours Vital signs and Labs for Last 24 Hours: Temp Pulse Resp BP Pulse Ox O2 Del Method 97.5 F L 72 16 115/70 97 Room Air 12/03/23 08:00 12/03/23 08:00 12/03/23 08:00 12/03/23 08:00 12/03/23 08:00 12/03/23 12:58 Laboratory Results - last 24 hr 12/02/23 16:25: POC Glucose 111 H 12/02/23 21:08: POC Glucose 124 H 12/03/23 05:47: POC Glucose 94 12/03/23 06:30: WBC 6.5, RBC 5.00, Hgb 15.4 D, Hct 46.7, MCV 93.4, MCH 30.5, MCHC 32.6, RDW 14.0, Plt Count 215, MPV 7.4, Neut % (Auto) 65.2, Lymph % (Auto) 23.4, [place] % (Auto) 6.6, Eos % (Auto) 3.8, Baso % (Auto) 1.0, Neut # (Auto) 4.3, Lymph # (Auto) 1.5, [place] # (Auto) 0.4, Eos # (Auto) 0.3, Baso # (Auto) 0.1, Sodium 137, Potassium 3.8, Chloride 103, Carbon Dioxide 25, Anion Gap 12.8, BUN 18 D, Creatinine 0.70, Estimated Creat Clear 116, Estimated GFR 115, Est GFR ( Amer) 139, Glucose 104 H, Calcium 9.0, Total Bilirubin 0.7, AST 30, ALT 25, Alkaline Phosphatase 83, Total Protein 7.1, Albumin 4.3 D, Globulin 2.8, Albumin/Globulin Ratio 1.5 12/03/23 10:57: POC Glucose 107 I & O for Last 24 hours: Intake & Output 11/30/23 12/01/23 12/02/23 12/03/23 23:59 23:59 23:59 23:59 Intake Total 1140 / 1380 1055 / 1055 Output Total 3150 / 3150 400 / 400 Balance -2009 / 1770 655 / 655 Weight 74.752 kg 73.198 kg Constitutional Constitutional: no acute distress *Routine HEENT Exam Head: Present normocephalic Eye: Present EOMI and PERRL ENT: Present mucous membranes moist *Routine Neck Exam Neck: Present supple; Absent lymphadenopathy *Routine Respiratory Exam Respiratory: Present CTA bilaterally *Routine Cardiovascular Exam Cardiovascular: Present RRR *Routine Abdominal Exam Abdominal: Present soft and normoactive bowel sounds; Absent tenderness *Routine Extremities Exam Extremities: Absent cyanosis, clubbing or edema *Routine Skin Exam Skin: Present warm; Absent rash *Routine Neurological Exam Neurological: Present alert and oriented X3 Results Data Completed and Pending Labs on day of discharge: Labs from last 24 hours 12/03/23 12/03/23 12/03/23 10:57 06:30 05:47 WBC 6.5 RBC 5.00 Hgb 15.4 D Hct 46.7 MCV 93.4 MCH 30.5 MCHC 32.6 RDW 14.0 Plt Count 215 MPV 7.4 Neut % (Auto) 65.2 Lymph % (Auto) 23.4 [place] % (Auto) 6.6 Eos % (Auto) 3.8 Baso % (Auto) 1.0 Neut # (Auto) 4.3 Lymph # (Auto) 1.5 [place] # (Auto) 0.4 Eos # (Auto) 0.3 Baso # (Auto) 0.1 Sodium 137 Potassium 3.8 Chloride 103 Carbon Dioxide 25 Anion Gap 12.8 BUN 18 D Creatinine 0.70 Estimated Creat Clear 116 Estimated GFR 115 Est GFR ( Amer) 139 Glucose 104 H POC Glucose 107 94 Calcium 9.0 Total Bilirubin 0.7 AST 30 ALT 25 Alkaline Phosphatase 83 Total Protein 7.1 Albumin 4.3 D Globulin 2.8 Albumin/Globulin Ratio 1.5 12/02/23 12/02/23 21:08 16:25 WBC RBC Hgb Hct MCV MCH MCHC RDW Plt Count MPV Neut % (Auto) Lymph % (Auto) [place] % (Auto) Eos % (Auto) Baso % (Auto) Neut # (Auto) Lymph # (Auto) [place] # (Auto) Eos # (Auto) Baso # (Auto) Sodium Potassium Chloride Carbon Dioxide Anion Gap BUN Creatinine Estimated Creat Clear Estimated GFR Est GFR ( Amer) Glucose POC Glucose 124 H 111 H Calcium Total Bilirubin AST ALT Alkaline Phosphatase Total Protein Albumin Globulin Albumin/Globulin Ratio DS: Diagnosis Discharge Diagnosis (1) Acute hyponatremia: Status: Acute Code(s): E87.1 - Hypo-osmolality and hyponatremia (2) Right nephrolithiasis: Status: Acute Code(s): N20.0 - Calculus of kidney (3) Hypertension: Status: Acute Code(s): I10 - Essential (primary) hypertension Qualifiers: Hypertension type: essential hypertension Qualified Code(s): I10 - Essential (primary) hypertension (4) Myelolipoma of left adrenal gland: Status: Acute Code(s): D17.79 - Benign lipomatous neoplasm of other sites (5) Diabetes mellitus, type 2: Status: Acute Code(s): E11.9 - Type 2 diabetes mellitus without complications Qualifiers: Diabetes mellitus long term acute care registered nurse insulin use: without long term acute care registered nurse use Diabetes mellitus complication status: with other specified complication Qualified Code(s): E11.69 - Type 2 diabetes mellitus with other specified complication (6) Cerebral palsy: Status: Acute Code(s): G80.9 - Cerebral palsy, unspecified Qualifiers: Cerebral palsy type: spastic diplegic Qualified Code(s): G80.1 - Spastic diplegic cerebral palsy Meds Home Medications and Allergies Home Medications Medication Instructions Recorded Confirmed Type metoprolol tartrate 50 mg tablet 50 mg PO BID 12/23/17 12/02/23 History fluticasone propionate 50 1 spr NS BID allergies 05/15/19 12/02/23 History mcg/actuation nasal spray,suspension atorvastatin 10 mg tablet 10 mg PO DAILY 07/02/23 12/02/23 History lisinopril 10 1 tab PO DAILY 07/02/23 12/02/23 History mg-hydrochlorothiazide 12.5 mg tablet carisoprodol 350 mg tablet 350 mg PO TID 12/02/23 12/02/23 History hydrocodone 7.5 mg-acetaminophen 1 tab PO Q6HP PRN Moderate Pain 12/02/23 12/02/23 History 325 mg tablet (Scale Score 5-6) New Prescriptions to Start Prescriptions: Allergies Allergy/AdvReac Type Severity Reaction Status Date / Time No Known Allergies Allergy Verified 12/02/23 00:55 Discharge Plan Disposition Patient Disposition: Home, Self-Care Condition: Good Discharge Order Discharge Orders: Discharge Order (Routine); Ordered 12/03/23 Ordered By: Fiordaliza Amanda Follow up Plan Follow up with: Brody Aguila MD [Primary Care Provider] - 2 weeks Prescriptions/Medication Reconciliation: Continued metoprolol tartrate 50 MG tablet 50 mg PO BID fluticasone propionate 120 SPR/BOT bottle 1 spr NS BID carisoprodol 350 mg tablet 350 mg PO TID hydrocodone-acetaminophen 7.5-325 mg tablet 1 tab PO Q6HP PRN (Reason: Moderate Pain (Scale Score 5-6)) atorvastatin 10 mg tablet 10 mg PO DAILY lisinopril-hydrochlorothiazide 10-12.5 mg tablet 1 tab PO DAILY Patient Comments: TAKE 1 TABLET BY MOUTH ONCE DAILY Problem Reconciliation Problems Reviewed?: Yes Patient Discharge Instructions ACTIVITY: Ambulate as tolerated DIET: continue same diet Patient Instructions: DI for Hyponatremia Providers Primary Care Provider: Brody Aguila Admit Provider: Fiordaliza Amanda Attending Provider: Fiordaliza Amanda
--- NOTE | 2023-12-04 15:22 | SW/DCPLANNER ---
Follow up phone call: I spoke w/ this patient regarding hospital. Patient stated that he does have a follow up appointment w/ PCP and was able to fiber picker his medications. Patient did not have any further needs/questions at this time.
== END 2023-12-03 13:25 | disposition home or self-care (01) | DRG 641 ==
LOC: ER 00:41 → 2ND 03:09
PROVIDERS: Nurse Practitioner Family; Admitting Provider Internal Medicine; Emergency Provider Emergency Medicine; PCP Family Medicine; Visit Provider Internal Medicine
DX: E87.1 Hypo-osmolality and hyponatremia (principal); G80.1 Spastic diplegic cerebral palsy; N20.0 Calculus of kidney; I10 Essential (primary) hypertension; E11.69 Type 2 diabetes mellitus with other specified complication; Z79.899 Other long term (current) drug therapy; Z87.442 Personal history of urinary calculi; E78.00 Pure hypercholesterolemia, unspecified; T50.2X5A Adverse effect of carbonic-anhydrase inhibitors, benzothiadiazides and other diuretics, initial encounter
CPT/HCPCS: 36415; 74176; 80053; 81001; 82088; 82962; 83036; 83735; 83880; 84244; 84295; 84436; 84443; 84540; 85025; 99285; J1650

== ENCOUNTER 2023-12-08 09:41 | Emergency (ER) | payer MEDICARE, OTHER, SELFPAY ==
[2023-12-08 09:48] VITALS: BP 152/93; PULSE 67; RESP 16; TEMP 36.6; O2SAT 98; BMI 24.7
--- NOTE | 2023-12-08 09:52 | PC.NURSE ---
Dr. Gan at [facility] for pt eval
--- NOTE | 2023-12-08 09:56 | CT_ITS ---
FINAL REPORT CLINICAL HISTORY: fall, head injury early this morning COMPARISON: None FINDINGS: Axial images of the head were obtained without contrast. Coronal and sagittal reformatted images were also obtained. This study was performed with techniques to keep radiation doses as low as reasonably achievable (ALARA). Individualized dose reduction techniques using automated exposure control or adjustment of mA and/or kV according to the patient's size were employed. Moderate changes of atrophy are present. 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 There is a stimulator device present with the tips near the tentorium and superior vermis. There is no evidence of intracranial hemorrhage or mass. There is no evidence of shift of the midline structures. No skull abnormality is seen on the bone window images. IMPRESSION: No acute intracranial abnormality. Reviewed, Interpreted and Dictated by Oli Bruno III, MD Transcribed by Paula Mortensen Authenticated and [facility]
--- NOTE | 2023-12-08 09:57 | HMH.EDGENADL ---
Discharge Plan Disposition Patient Disposition: Home, Self-Care Prescriptions Prescriptions: No Action metoprolol tartrate 50 MG tablet 50 mg PO BID fluticasone propionate 120 SPR/BOT bottle 1 spr NS BID carisoprodol 350 mg tablet 350 mg PO TID hydrocodone-acetaminophen 7.5-325 mg tablet 1 tab PO Q6HP PRN (Reason: Moderate Pain (Scale Score 5-6)) atorvastatin 10 mg tablet 10 mg PO DAILY lisinopril-hydrochlorothiazide 10-12.5 mg tablet 1 tab PO DAILY Patient Comments: TAKE 1 TABLET BY MOUTH ONCE DAILY Referrals Follow up/Referrals: Latricia Abdul APRN [Nurse Practitioner] - See instructions Activity Restrictions/Add. Instructions Additional Instructions/Restrictions: No evidence of an acute intracranial abnormality. Please take Tylenol as needed for your symptoms return with any significant worsening or other concerns. Clinical Impressions Clinical Impression: Minor head injury Discharge ED Provider: Meagan Gan General Adult HPI General Chief complaint: Fall Stated complaint: AO 12/07 300 fall hit head headache Time Seen by Provider: 12/08/23 09:54 Mode of Arrival: Ambulatory Source of Information: Patient Limitations: Physical Limitations Description of Symptoms (Recalled from ER Triage Doc. by RN): Patient reports losing the end of the wall and falling striking his head on an end table. Denies LOC. States that he just has a headache. History of Present Illness HPI narrative: Patient is a previously healthy 58-year-old male not anticoagulated on antiplatelet agents who presents today with a head injury. States he was up at 3 AM to go to the bathroom which is normal for him he is not disoriented did not have a syncopal episode any other mechanical fall. States he was trying to use his hand to follow alongside the wall which is normal but he lost sight of where he was and subsequently fell. Struck the left frontal lateral aspect of his head. No loss of conscious no persistent nausea and vomiting he has not had any changes in mental status no neck pain or injuries elsewhere. Called his primary care doctor who sent him to the emergency department for a scan. Related Data Home Medications Medication Instructions Recorded Confirmed metoprolol tartrate 50 mg tablet 50 mg PO BID 12/23/17 12/02/23 fluticasone propionate 50 1 spr NS BID allergies 05/15/19 12/02/23 mcg/actuation nasal spray,suspension atorvastatin 10 mg tablet 10 mg PO DAILY 07/02/23 12/02/23 lisinopril 10 1 tab PO DAILY 07/02/23 12/02/23 mg-hydrochlorothiazide 12.5 mg tablet carisoprodol 350 mg tablet 350 mg PO TID 12/02/23 12/02/23 hydrocodone 7.5 mg-acetaminophen 1 tab PO Q6HP PRN Moderate Pain 12/02/23 12/02/23 325 mg tablet (Scale Score 5-6) Allergies Allergy/AdvReac Type Severity Reaction Status Date / Time No Known Allergies Allergy Verified 12/02/23 00:55 [facility] Disclaimer: The information contained in this section may have been updated after the patient was seen, as this information can be updated by other users. Medical History (Updated 12/08/23 @ 09:57 by Meagan Gan MD) Cerebral palsy History of seizure High cholesterol Kidney stones Enlarged prostate Diabetes mellitus, type 2 Surgical History (Updated 12/02/23 @ 03:50 by Selina Deluca RN) Hx of lithotripsy History of surgery on lower extremity Social History Smoking Status: Unknown if ever smoked alcohol intake: never current occupational status: other Travel in the last 8 weeks: None caffeine: No ROS Obtained: Yes All systems reviewed & no additional complaints except as documented Physical Exam General General appearance: alert and in no apparent distress Head Head exam: atraumatic and normocephalic Neck Neck exam: Absent tenderness Respiratory Respiratory exam: Present normal lung sounds bilaterally Cardiovascular Cardiovascular exam: Present regular rate and normal rhythm Abdominal Exam Abdominal exam: Present soft and distention Neurological Exam Neurological exam: Present alert, oriented X3 and other (GCS of 15 normal nonfocal neurologic exam) Medical Decision Making Marv Inquiry Pt receiving controlled substance: No Vital Signs: 12/08/23 09:48 12/08/23 10:00 12/08/23 10:30 Temperature 97.9 F Temperature Source Oral Pulse Rate 63 61 Pulse Rate [Radial] 67 Respiratory Rate 16 16 Blood Pressure 114/77 121/82 Blood Pressure [Right Arm] 152/93 H Blood Pressure Mean 90 Blood Pressure Mean [Right Arm] 112 Blood Pressure Source [Right Arm] Automatic Cuff Blood Pressure Position [Right Arm] Sitting 02 Sat by Pulse Oximetry 98 96 98 Oxygen Delivery Method Room Air 12/08/23 11:00 Temperature Temperature Source Pulse Rate 59 L Pulse Rate [Radial] Respiratory Rate Blood Pressure 115/77 Blood Pressure [Right Arm] Blood Pressure Mean Blood Pressure Mean [Right Arm] Blood Pressure Source [Right Arm] Blood Pressure Position [Right Arm] 02 Sat by Pulse Oximetry 98 Oxygen Delivery Method Room Air Orders (Tests/Meds): ED MEDICATIONS Discontinued Medications Generic Name Dose Route Start Last Admin Trade Name Freq PRN Reason Stop Dose Admin Acetaminophen 1,000 mg 12/08/23 09:56 12/08/23 10:03 Acetaminophen 500mg Tab PO 12/08/23 09:57 1,000 mg ONCE ONE Administration ORDERS Category Date Time Status CT head/brain wo con Stat Cat Scan 12/08/23 09:56 Completed Medical Decision Narrative: Patient above history and physical with minor head injury. Neurologic exam is normal he is [place] CT head negative and Nexus negative but positive from CT scan stable. He is around the cutoff age where radiation exposure is less of a concern. Exceedingly unlikely that he has an injury that would require neurosurgical intervention however his primary care doctor sent him for a CT scan which is not unreasonable. It is possible we may find a clinically insignificant injury such as a nondisplaced cold fracture small intracranial hemorrhage etc. For this reason I will proceed with a CT scan and reassess. Reassessment 1135 CT scan of patient's head performed to person interpreted shows no acute intracranial abnormalities radiology read consistent with this. Reassessment of the patient has a serial neurologic exam which is normal patient reassured discharged in improved and stable condition. Critical Care Critical Care Time Critical Care Time: No
[2023-12-08 10:00] VITALS: BP 114/77; PULSE 63; O2SAT 96
[2023-12-08] MEDS: ACETAMINOPHEN 500MG TAB 1000 MG PO (10:03)
[2023-12-08 10:30] VITALS: BP 121/82; PULSE 61; RESP 16; O2SAT 98
[2023-12-08 11:00] VITALS: BP 115/77; PULSE 59; O2SAT 98
--- NOTE | 2023-12-08 11:05 | PC.NURSE ---
checked on pt. denies need for warm blanket at this time. no questions or concerns voiced by pt or family member. call light within reach
[2023-12-08 11:36] VITALS: BP 108/70; PULSE 56; RESP 16; TEMP 36.6; O2SAT 98
== END 2023-12-08 11:39 | disposition home or self-care (01) ==
PROVIDERS: Emergency Provider Student in an Organized Health Care Education/Training Program; PCP Family Medicine
DX: S09.90XA Unspecified injury of head, initial encounter (principal); G80.9 Cerebral palsy, unspecified; W18.30XA Fall on same level, unspecified, initial encounter
CPT/HCPCS: 70450; 99284

== ENCOUNTER 2024-03-27 13:04 | Outpatient (CLI) | payer MEDICARE, OTHER, SELFPAY ==
--- NOTE | 2024-03-27 13:16 | XR_ITS ---
PROCEDURE INFORMATION: Exam: XR Abdomen Exam date and time: 03/27/2024 1:18 PM Age: 58 years old Clinical indication: Abdominal pain; Flank; Right lower quadrant (rlq); Prior surgery; Surgery date: 6+ months; Surgery type: H/o stones and lithotripsy; Additional info: Calculus of kidney TECHNIQUE: Imaging protocol: Radiologic exam of the abdomen. Views: Frontal supine view of the abdomen. 1 View. COMPARISON: CT ABDOMEN PELVIS WO CON 12/02/2023 6:26 AM FINDINGS: Gastrointestinal tract: Constipation throughout the colon. Bones/joints: Degenerative changes along the thoracolumbar spine Other findings: The fecal material obscures the nephrograms. IMPRESSION: Constipation throughout the colon.
== END 2024-03-27 23:59 | disposition home or self-care (01) ==
PROVIDERS: PCP Family Medicine; Visit Provider Urology
DX: N20.0 Calculus of kidney (principal)
CPT/HCPCS: 74018

== ENCOUNTER 2024-03-30 09:53 | Emergency (ER) | payer MEDICARE, OTHER, SELFPAY ==
[2024-03-30 10:20] VITALS: BP 131/77; PULSE 75; RESP 20; TEMP 37.2; O2SAT 99; BMI 24.7
--- NOTE | 2024-03-30 10:30 | ED_ITS ---
Discharge Plan Disposition Patient Disposition: Home, Self-Care Condition: Good Prescriptions Prescriptions: New benzonatate 100 mg capsule 100 mg PO TID PRN (Reason: cough) Qty: 30 0RF amoxicillin-pot clavulanate 500-125 mg Tablet 1 tab PO Q12H 7 Days Qty: 14 0RF guaifenesin [Mucinex] 600 mg tablet extended release 12hr 600 mg PO BID PRN (Reason: cough) Qty: 20 0RF No Action atorvastatin 10 mg tablet 10 mg PO HS Patient Comments: TAKE 1 TABLET BY MOUTH ONCE DAILY tamsulosin 0.4 mg capsule 0.4 mg PO DAILY Patient Comments: TAKE 1 CAPSULE BY MOUTH ONCE DAILY hydrocodone-acetaminophen 7.5-325 mg tablet 1 tab PO Q6H Patient Comments: TAKE 1 TABLET BY MOUTH EVERY 6 HOURS NEEDED FOR 7 DAYS metoprolol tartrate 50 mg tablet 50 mg PO BID Patient Comments: TAKE 1 TABLET BY MOUTH TWICE DAILY WITH FOOD lisinopril-hydrochlorothiazide 10-12.5 mg tablet 1 tab PO DAILY Patient Comments: TAKE 1 TABLET BY MOUTH ONCE DAILY FOR 90 DAYS Referrals Follow up/Referrals: Brody Aguila MD [Primary Care Provider] - See instructions Activity Restrictions/Add. Instructions Additional Instructions/Restrictions: * Start antibiotic today. Be sure to complete entire prescription even if feeling better * Monitor temp. Tylenol every 4 hours as needed and / or ibuprofen every 6 hours as needed ( As long as your primary care physician has told you that it ok to take both. For fever/aches/pains ER if no less than 101 despite Tylenol or Motrin * Humidifier/vaporizer or hot steamy shower * Mucinex during the day for your cough and cough suppressant only at night. Be sure to drink lots of water. *Tessalon Perles will not cause drowsiness but use at bedtime to help stop cough so that you may get some rest. Follow up IMMEDIATELY for new or worsening of symptoms OR no noticeable improvement over the next 48-72 hours. 911 immediately for any life threatening symptoms such as chest pain or difficulty breathing Clinical Impressions Clinical Impression: Acute maxillary sinusitis Instructions Patient Instructions: DI for Sinusitis, Sinusitis, Amoxicillin and Clavulanic Acid Print Language Print Language: Telugu Discharge ED Provider: Inez Ferreira [facility] General Stated complaint: runny nose, fever, body aches Mode of Arrival: Ambulatory Source of Information: Patient Limitations: No Limitations Time Seen by Provider: 03/30/24 10:30 Description of Symptoms (Recalled from Triage Doc. by RN): PATIENT C/O COUGH, BODY ACHES, RUNNY NOSE, RIB TIGHTNESS, FEVER AND CHILLS SINCE MONDAY NIGHT HEENT Symptoms (Recalled from RN notes): Yes Resp Symptoms (Recalled from RN notes): Yes Skin Symptoms (Recalled from RN notes): No MS Symptoms (Recalled from RN notes): Yes Functional Status (Recalled from RN notes): WNL History of Present Illness Provider Complaint: Patient states that he started getting sick last week states that he has been having sinus congestion and pressure, cough, pain in rib area with cough, and felt like he has been having fever and chills but hasnt checked his temperature States today his sinuses was bothering him more so he came in to get checked Related Data Home Medications ?Medication ?Instructions ?Recorded ?Confirmed atorvastatin 10 mg tablet 10 mg PO HS 03/30/24 03/30/24 hydrocodone 7.5 mg-acetaminophen 1 tab PO Q6H 03/30/24 03/30/24 325 mg tablet lisinopril 10 1 tab PO DAILY 03/30/24 03/30/24 mg-hydrochlorothiazide 12.5 mg tablet metoprolol tartrate 50 mg tablet 50 mg PO BID 03/30/24 03/30/24 tamsulosin 0.4 mg capsule 0.4 mg PO DAILY 03/30/24 03/30/24 Previous Rx's ?Medication ?Instructions ?Recorded amoxicillin 500 mg-potassium 1 tab PO Q12H 7 days #14 tabs 03/30/24 clavulanate 125 mg tablet benzonatate 100 mg capsule 100 mg PO TID PRN cough #30 caps 03/30/24 guaifenesin 600 mg tablet, 600 mg PO BID PRN cough #20 tabs 03/30/24 extended release 12 hr (Mucinex) Allergies Allergy/AdvReac Type Severity Reaction Status Date / Time No Known Allergies Allergy Verified 12/02/23 00:55 Worker's Comp Is this a Worker's Comp case?: No [facility] Disclaimer: The information contained in this section may have been updated after the patient was seen, as this information can be updated by other users. Medical History (Updated 03/30/24 @ 10:43 by Inez Ferreira APRN) Cerebral palsy History of seizure High cholesterol Kidney stones Enlarged prostate Diabetes mellitus, type 2 Surgical History (Updated 12/02/23 @ 03:50 by Selina Deluca RN) Hx of lithotripsy History of surgery on lower extremity Social History Smoking Status: Unknown if ever smoked alcohol intake: never current occupational status: other Travel in the last 8 weeks: None caffeine: No ROS Obtained: Yes All systems reviewed & no additional complaints except as documented and Yes Systems reviewed as appropriate & no additional complaints except as documented Constitutional Constitutional: Reports system reviewed and no additional complaints, except as documented, Reports as per HPI, Reports body ache, Reports chills, Reports fever(s) and Reports headache(s) ENT Ears, Nose, Mouth, and Throat: Reports system reviewed and no additional complaints, except as documented, Reports as per HPI, Reports headache(s), Reports sinus pain and Reports sinus pressure Cardiovascular Cardiovascular: Reports system reviewed and no additional complaints, except as documented and Reports as per HPI Respiratory Respiratory: Reports system reviewed and no additional complaints, except as documented, Reports as per HPI, Reports cough and Reports pain with cough Gastrointestinal Gastrointestingal: Reports system reviewed and no additional complaints, except as documented and as per HPI Neurologic Neurologic: Reports headache(s) Physical Exam General General appearance: alert and in no apparent distress ENT ENT exam: Present mucous membranes moist Expanded ENT Exam Nose exam: Present sinus tenderness Throat exam: Present other (Pharyngeal erythema noted with PND) Respiratory Respiratory exam: Present normal lung sounds bilaterally; Absent respiratory distress or wheezes Cardiovascular Cardiovascular exam: Present regular rate, normal rhythm and normal heart sounds Neurological Exam Neurological exam: Present alert, oriented X3 and normal gait Medical Decision Making Medical Records Screening: Per USPSTF and CDC recommendations, given the prevalence of disease in our region, it is our hospital?s policy to screen for HIV and viral Hepatitis for all patients aged 18 and over and those with ongoing risk factors. Marv Inquiry Pt receiving controlled substance: No Marv was queried for this patient: No Vital Signs: 03/30/24 10:20 Temperature 99.0 F Temperature Source Oral Pulse Rate [Left Brachial] 75 Respiratory Rate 20 Blood Pressure [Left Arm] 131/77 Blood Pressure Mean [Left Arm] 95 Blood Pressure Source [Left Arm] Automatic Cuff Blood Pressure Position [Left Arm] Sitting 02 Sat by Pulse Oximetry 99 Oxygen Delivery Method Room Air Lab Data Lab results reviewed: Yes I reviewed the patient's lab results.
[2024-03-30 10:43] LABS: UTC Influenza A Antigen Negative (Negative); UTC Influenza B Antigen Negative (Negative)
[2024-03-30 10:46] VITALS: BP 131/77; PULSE 75; RESP 20; TEMP 37.2; O2SAT 99
== END 2024-03-30 10:49 | disposition home or self-care (01) ==
PROVIDERS: Emergency Provider Nurse Practitioner; PCP Family Medicine
DX: J01.00 Acute maxillary sinusitis, unspecified (principal); R50.9 Fever, unspecified; R09.89 Other specified symptoms and signs involving the circulatory and respiratory systems; M79.10 Myalgia, unspecified site; R05.9 Cough, unspecified
CPT/HCPCS: 87804; 99212; G0381

== ENCOUNTER 2024-05-12 15:49 | Emergency (ER) | payer MEDICARE, OTHER, SELFPAY ==
[2024-05-12 16:28] LABS: Apearance,Urine Clear (Clear); Bilirubin,Urine Negative (Negative); Blood, Urine Negative (Negative); Color,Urine Dark Yellow (Yellow); Glucose,Urine (UA) Negative (Negative); Ketones,Urine Negative (Negative); Protein,Urine Negative (Negative); Specific Gravity, Urine 1.015 (1.005-1.030); UTC Leukocyte Esterase,Urine Negative (Negative); UTC Nitrate,Urine Negative (Negative); Urobilinogen,Urine 0.2 EU/dl (0.2)
[2024-05-12 16:30] VITALS: BP 139/78; PULSE 75; RESP 19; TEMP 36.6; O2SAT 99; BMI 24.0
--- NOTE | 2024-05-12 16:50 | ED_ITS ---
Discharge Plan Disposition Patient Disposition: Home, Self-Care Condition: Good Prescriptions Prescriptions: New cephalexin 500 mg tablet 500 mg PO BID 7 Days Qty: 14 0RF No Action atorvastatin 10 mg tablet 10 mg PO HS Patient Comments: TAKE 1 TABLET BY MOUTH ONCE DAILY tamsulosin 0.4 mg capsule 0.4 mg PO DAILY Patient Comments: TAKE 1 CAPSULE BY MOUTH ONCE DAILY hydrocodone-acetaminophen 7.5-325 mg tablet 1 tab PO Q6H Patient Comments: TAKE 1 TABLET BY MOUTH EVERY 6 HOURS NEEDED FOR 7 DAYS metoprolol tartrate 50 mg tablet 50 mg PO BID Patient Comments: TAKE 1 TABLET BY MOUTH TWICE DAILY WITH FOOD lisinopril-hydrochlorothiazide 10-12.5 mg tablet 1 tab PO DAILY Patient Comments: TAKE 1 TABLET BY MOUTH ONCE DAILY FOR 90 DAYS benzonatate 100 mg capsule 100 mg PO TID PRN (Reason: cough) Qty: 30 0RF amoxicillin-pot clavulanate 500-125 mg Tablet 1 tab PO Q12H 7 Days Qty: 14 0RF guaifenesin [Mucinex] 600 mg tablet extended release 12hr 600 mg PO BID PRN (Reason: cough) Qty: 20 0RF Referrals Follow up/Referrals: Brody Aguila MD [Primary Care Provider] - See instructions Activity Restrictions/Add. Instructions Additional Instructions/Restrictions: Increase fluids, water and not soda or tea. Can drink cranberry juice or cranberry extract. Wipe front to back Wear cotton underwear Empty bladder after intercourse Start antibiotics immediately and make sure you take the full course although you may start to see improvement over the next 48 hours. You can eat yogurt or take probiotics to decrease diarrhea or yeast infection caused by the antibiotic Be sure to follow-up anytime for new or worsening symptoms in 48 hours for wound urine culture results be sure to let you PCP no recent urine for culture so they can request records and ensure that you have appropriate antibiotic if you are not getting better or getting worse. If symptoms worsen or do not improve return or be seen in the ER. Follow-up with primary care this week. Clinical Impressions Clinical Impression: Acute UTI, Acute maxillary sinusitis Instructions Patient Instructions: DI for Urinary Tract Infection (UTI), DI for Sinusitis Print Language Print Language: Wolof Discharge ED Provider: Ju ([facility] [place] [facility] [place] General Stated complaint: fever,sore throat,poss UTI Mode of Arrival: Ambulatory Source of Information: Patient Limitations: No Limitations Time Seen by Provider: 05/12/24 16:47 Description of Symptoms (Recalled from Triage Doc. by RN): PATIENT C/O SINUS CONGESTION, LOW-GRADE FEVER, AND POSSIBLE UTI HEENT Symptoms (Recalled from RN notes): Yes Resp Symptoms (Recalled from RN notes): No Skin Symptoms (Recalled from RN notes): No MS Symptoms (Recalled from RN notes): No Functional Status (Recalled from RN notes): WNL History of Present Illness Provider Complaint: 58-year-old male presents for sinus congestion, tenderness, low-grade fever, urinary frequency, and urgency. Related Data Home Medications ?Medication ?Instructions ?Recorded ?Confirmed atorvastatin 10 mg tablet 10 mg PO HS 03/30/24 03/30/24 hydrocodone 7.5 mg-acetaminophen 1 tab PO Q6H 03/30/24 03/30/24 325 mg tablet lisinopril 10 1 tab PO DAILY 03/30/24 03/30/24 mg-hydrochlorothiazide 12.5 mg tablet metoprolol tartrate 50 mg tablet 50 mg PO BID 03/30/24 03/30/24 tamsulosin 0.4 mg capsule 0.4 mg PO DAILY 03/30/24 03/30/24 Previous Rx's ?Medication ?Instructions ?Recorded amoxicillin 500 mg-potassium 1 tab PO Q12H 7 days #14 tabs 03/30/24 clavulanate 125 mg tablet benzonatate 100 mg capsule 100 mg PO TID PRN cough #30 caps 03/30/24 guaifenesin 600 mg tablet, 600 mg PO BID PRN cough #20 tabs 03/30/24 extended release 12 hr (Mucinex) cephalexin 500 mg tablet 500 mg PO BID 7 days #14 tabs 05/12/24 Allergies Allergy/AdvReac Type Severity Reaction Status Date / Time No Known Allergies Allergy Verified 12/02/23 00:55 Worker's Comp Is this a Worker's Comp case?: No [facility] Disclaimer: The information contained in this section may have been updated after the patient was seen, as this information can be updated by other users. Medical History , [employer]) Cerebral palsy History of seizure High cholesterol Kidney stones Enlarged prostate Diabetes mellitus, type 2 Surgical History , [employer]) Hx of lithotripsy History of surgery on lower extremity Social History , [employer]) Smoking Status: Unknown if ever smoked alcohol intake: never current occupational status: other Travel in the last 8 weeks: None caffeine: No ROS Obtained: Yes Systems reviewed as appropriate & no additional complaints except as documented Physical Exam General General appearance: alert and in no apparent distress ENT ENT exam: Present normal oropharynx, mucous membranes moist and TM's normal bilaterally Expanded ENT Exam Nose exam: Present sinus tenderness Respiratory Respiratory exam: Present normal lung sounds bilaterally Cardiovascular Cardiovascular exam: Present regular rate and normal rhythm Abdominal Exam Abdominal exam: Present soft and normal bowel sounds Neurological Exam Neurological exam: Present alert and oriented X3 Skin Skin exam: Present warm and intact Medical Decision Making Medical Records Medical records reviewed: Yes I reviewed the patient's medical records. Screening: Per USPSTF and CDC recommendations, given the prevalence of disease in our region, it is our hospital?s policy to screen for HIV and viral Hepatitis for all patients aged 18 and over and those with ongoing risk factors. Marv Inquiry Pt receiving controlled substance: No Marv was queried for this patient: No Vital Signs: 05/12/24 16:30 Temperature 97.9 F Temperature Source Oral Pulse Rate [Left Brachial] 75 Respiratory Rate 19 Blood Pressure [Left Arm] 139/78 Blood Pressure Mean [Left Arm] 98 Blood Pressure Source [Left Arm] Automatic Cuff Blood Pressure Position [Left Arm] Sitting 02 Sat by Pulse Oximetry 99 Oxygen Delivery Method Room Air Lab Data Lab results reviewed: Yes I reviewed the patient's lab results. Lab Results 05/12/24 16:27: Urine Color Dark yellow, Urine Appearance Clear, Urine pH 6.0, Ur Specific Farley 1.015, Urine Protein Negative, Urine Glucose (UA) Negative, Urine Ketones Negative, Urine Blood Negative, Urine Nitrate Negative, Urine Bilirubin Negative, Urine Urobilinogen 0.2, Ur Leukocyte Esterase Negative Orders (Tests/Meds): ORDERS Category Date Time Status Urine Culture Stat Micro 05/12/24 16:27 Ordered
[2024-05-12 16:55] VITALS: BP 139/78; PULSE 75; RESP 19; TEMP 36.6; O2SAT 99
== END 2024-05-12 16:58 | disposition home or self-care (01) ==
PROVIDERS: Emergency Provider Nurse Practitioner Family; PCP Family Medicine
DX: J06.9 Acute upper respiratory infection, unspecified (principal); J01.00 Acute maxillary sinusitis, unspecified
CPT/HCPCS: 81003; 87086; 99213; G0381

== ENCOUNTER 2024-11-09 15:43 | Emergency (ER) | payer MEDICARE, OTHER, SELFPAY ==
[2024-11-09 15:45] VITALS: BP 132/86; PULSE 82; RESP 18; O2SAT 97
[2024-11-09 15:49] VITALS: BP 132/86; PULSE 104; RESP 15; TEMP 36.9; O2SAT 99; BMI 25.7
--- NOTE | 2024-11-09 15:50 | CT_ITS ---
PROCEDURE INFORMATION: Exam: CT Cervical Spine Without Contrast Exam date and time: 11/09/2024 4:16 PM Age: 59 years old Clinical indication: Injury or trauma; Fall; Blunt trauma; Additional info: Fall and hit head TECHNIQUE: Imaging protocol: Computed tomography of the cervical spine without contrast. Radiation optimization: All CT scans at this facility use at least one of these dose optimization techniques: automated exposure control; mA and/or kV adjustment per patient size (includes targeted exams where dose is matched to clinical indication); or iterative reconstruction. COMPARISON: CT HEAD/BRAIN WO CON 12/08/2024 16:13 FINDINGS: Tubes, catheters and devices: Brain stimulator device again demonstrated. Bones: No acute fracture or subluxation. Nonspecific straightening of the cervical lordosis. Degenerative changes of the spine. C3/4 disc calcification. Lungs: Lung apices are normal. Vasculature: Atherosclerosis. Soft tissues: Unremarkable. IMPRESSION: 1. No acute fracture or subluxation. 2. Nonspecific straightening of the cervical lordosis, which may be secondary to positioning versus muscle spasm.
--- NOTE | 2024-11-09 15:50 | CT_ITS ---
PROCEDURE INFORMATION: Exam: CT Head Without Contrast Exam date and time: 11/09/2024 4:13 PM Age: 59 years old Clinical indication: Injury or trauma; Fall; Blunt trauma (contusions or hematomas); Additional info: Fall and hit TECHNIQUE: Imaging protocol: Computed tomography of the head without contrast. Radiation optimization: All CT scans at this facility use at least one of these dose optimization techniques: automated exposure control; mA and/or kV adjustment per patient size (includes targeted exams where dose is matched to clinical indication); or iterative reconstruction. COMPARISON: CT HEAD/BRAIN WO CON 10/10/2023 10:22 FINDINGS: Tubes, catheters and devices: Brain stimulator device again demonstrated. Brain: No intracranial hemorrhage. Mild brain volume loss. Severe white matter changes typical of hypertension or chronic small vessel ischemia. Cerebral ventricles: No ventriculomegaly. Paranasal sinuses: Visualized sinuses are unremarkable. No fluid levels. Mastoid air cells: Visualized mastoid air cells are well aerated. Bones: Bilateral posterior skull hero holes again demonstrated. Soft tissues: Unremarkable. IMPRESSION: No intracranial hemorrhage or acute fracture.
--- NOTE | 2024-11-09 15:52 | ED_ITS ---
<Statement entered by Meagan Gan MD - 11/09/24 23:19> I was consulted by the SHIRA, and we discussed the complexity of the problems being addressed. I approved the treatment and management plan for this patient's care in the emergency department, thus performing a substantive portion of the medical decision making. Meagan Gan MD, ZABRINA, FACEP Discharge Plan Disposition Patient Disposition: Home, Self-Care Prescriptions Prescriptions: New methocarbamol 750 mg tablet 750 mg PO Q8H 7 Days Qty: 21 0RF No Action fluticasone propionate 50 mcg/actuation spray,suspension 1 spray intranasal Patient Comments: USE 1 SPRAY IN EACH NOSTRIL TWICE DAILY guaifenesin 600 mg tablet extended release 12hr 600 mg PO Q12H PRN (Reason: congestion) Qty: 20 0RF atorvastatin 10 mg tablet 10 mg PO HS Patient Comments: TAKE 1 TABLET BY MOUTH ONCE DAILY hydrocodone-acetaminophen 7.5-325 mg tablet 1 tab PO Q6H Patient Comments: TAKE 1 TABLET BY MOUTH EVERY 6 HOURS NEEDED FOR 7 DAYS metoprolol tartrate 50 mg tablet 50 mg PO BID Patient Comments: TAKE 1 TABLET BY MOUTH TWICE DAILY WITH FOOD lisinopril-hydrochlorothiazide 10-12.5 mg tablet 1 tab PO DAILY Patient Comments: TAKE 1 TABLET BY MOUTH ONCE DAILY FOR 90 DAYS Referrals Follow up/Referrals: Brody Aguila MD [Primary Care Provider, Medical] - See instructions Activity Restrictions/Add. Instructions Additional Instructions/Restrictions: Have justin removed in 10 days at your primary care office. Clinical Impressions Clinical Impression: Minor head injury Instructions Patient Instructions: How to Prevent Falls Print Language Print Language: Beninese Discharge ED Provider: Meagan Gan General Adult HPI General Chief complaint: Fall Stated complaint: head lac Time Seen by Provider: 11/09/24 15:52 History of Present Illness HPI narrative: This is a 59-year-old male who presents to the ED today for complaint of a trip over some mats at the [employer]. He is slipped and fell back hitting his head. This caused a head laceration. He did not lose consciousness. He does have some bleeding. He does not take blood thinners. He does have some pain in his neck. No other pain. He does walk with 2 canes. He does have cerebral palsy. He has no other complaints. Related Data Home Medications ?Medication ?Instructions ?Recorded ?Confirmed atorvastatin 10 mg tablet 10 mg PO HS 03/30/24 5 hydrocodone 7.5 mg-acetaminophen 1 tab PO Q6H 03/30/24 08/11/24 325 mg tablet lisinopril 10 1 tab PO DAILY 03/30/2402/27 mg-hydrochlorothiazide 12.5 mg tablet metoprolol tartrate 50 mg tablet 50 mg PO BID 03/30/24 08/11/24 fluticasone propionate 50 1 spray intranasal 08/11/24 08/11/24 mcg/actuation nasal spray,suspension Previous Rx's ?Medication ?Instructions ?Recorded guaifenesin 600 mg tablet, 600 mg PO Q12H PRN congesti on #20 08/11/24 extended release 12 hr tabs methocarbamol 750 mg tablet 750 mg PO Q8H 7 days #21 t abs 11/09/24 Allergies Allergy/AdvReac Type Severity Reaction Status Date / Time No Known Allergies Allergy Verified 08/11/24 13:03 [facility] Disclaimer: The information contained in this section may have been updated after the patient was seen, as this information can be updated by other users. Medical History Cerebral palsy History of seizure High cholesterol Kidney stones Enlarged prostate Diabetes mellitus, type 2 Surgical History Hx of lithotripsy History of surgery on lower extremity Social History Smoking Status: Never smoker alcohol intake: never current occupational status: other Travel in the last 8 weeks?: None caffeine: No Have you lived/traveled outside US in past 30 days?: No Contact w/someone who lives/traveled outside US past 30 days?: No Exposure to someone with infectious disease in past 14 days?: No Do you have a fever (greater than 100.4 F or 38 C)?: No Have you tested positive for COVID-19?: No Exposed to someone with COVID-19 in past 14 days?: No Do you have a sore throat?: No Do you have a cough?: No Do you have any weakness?: No Do you have any diarrhea?: No Are you experiencing any unusual bleeding?: No Do you have any muscle aches/pain?: No Do you have any abdominal pain?: No Are you experiencing loss of taste or smell?: No Other Medical History Have you received the Flu Vaccine for this season: No Have you received the Pneumonia Vaccine: No ROS Obtained: Yes Systems reviewed as appropriate & no additional complaints except as documented Constitutional Constitutional: Reports as per HPI Physical Exam General General appearance: alert Head Head exam: normocephalic and other (Laceration to the back of his head) Eye Eye exam: Present PERRL and EOMI ENT ENT exam: Present normal oropharynx and mucous membranes moist Neck Neck exam: Present full ROM, trachea midline and tenderness Respiratory Respiratory exam: Present normal lung sounds bilaterally Cardiovascular Cardiovascular exam: Present regular rate, normal rhythm, normal heart sounds, +S1 and +S2 Abdominal Exam Abdominal exam: Present soft and normal bowel sounds Extremities Exam Extremities exam: Present normal inspection, full ROM and normal capillary refill Neurological Exam Neurological exam: Present alert, oriented X3 and normal gait Skin Skin exam: Present warm, dry and intact Medical Decision Making Medical Records Medical records reviewed: Yes I reviewed the patient's medical records. Screening: Per USPSTF and CDC recommendations, given the prevalence of disease in our region, it is our hospital?s policy to screen for HIV and viral Hepatitis for all patients aged 18 and over and those with ongoing risk factors. Marv Inquiry Pt receiving controlled substance: No Marv was queried for this patient: No Vital Signs: 11/09/24 15:45 11/09/24 15:49 11/09/24 16:00 Temperature 98.4 F Temperature Source Oral Pulse Rate 82 79 Pulse Rate [Right Radial] 104 H Respiratory Rate 18 15 18 Blood Pressure 132/86 133/83 Blood Pressure [Right Arm] 132/86 Blood Pressure Mean 101 93 Blood Pressure Mean [Right Arm] 101 Blood Pressure Source Blood Pressure Source [Right Arm] Automatic Cuff Blood Pressure Position Blood Pressure Position [Right Arm] Supine 02 Sat by Pulse Oximetry 97 99 97 Oxygen Delivery Method Room Air 11/09/24 16:30 11/09/24 17:00 11/09/24 17:41 Temperature 98.4 F Temperature Source Oral Pulse Rate 74 73 86 Pulse Rate [Right Radial] Respiratory Rate 18 15 Blood Pressure 126/80 135/87 145/75 H Blood Pressure [Right Arm] Blood Pressure Mean 94 Blood Pressure Mean [Right Arm] Blood Pressure Source Automatic Cuff Blood Pressure Source [Right Arm] Blood Pressure Position Sitting Blood Pressure Position [Right Arm] 02 Sat by Pulse Oximetry 96 96 Oxygen Delivery Method Room Air Room Air Lab Data Lab Results 11/09/24 15:47: HCV Ab BONIFACIO w/Rflx PCR Qn Negative, HIV Ag/Ab Combo Qual Negative 11/09/24 17:07: Urine Color Yellow, Urine Appearance Clear, Urine pH 6.0, Ur Specific [place] 1.020, Urine Protein Negative, Urine Glucose (UA) Negative, Urine Ketones Negative, Urine Blood Negative, Urine Nitrate Negative, Urine Bilirubin Negative, Urine Urobilinogen 0.2, Ur Leukocyte Esterase Negative, Urine RBC 3-5, Urine WBC Occasional, Ur Squamous Epith Cells 3-5, Urine Bacteria Trace Orders (Tests/Meds): ED MEDICATIONS Discontinued Medications Generic Name Dose Route Start Last Admin Trade Name Freq PRN Reason Stop Dose Admin Hydrocodone Bitart/Acetaminophen 2 tab 11/09/24 15:50 11/09/24 16:08 Hydrocodone/Apap 5/325 Mg Tablet PO 11/09/24 15:51 2 tab ONCE ONE Administration Ketorolac Tromethamine 60 mg 11/09/24 15:50 11/09/24 16:11 Ketorolac 60mg/2ml Vial IM 11/09/24 15:51 Not Given ONCE ONE Ketorolac Tromethamine 30 mg 11/09/24 16:07 11/09/24 16:10 Ketorolac 30mg/Ml Vial IV 11/09/24 16:08 30 mg ONCE ONE Administration Orphenadrine Citrate 60 mg 11/09/24 16:07 11/09/24 16:10 Orphenadrine Citrate 60mg/2ml Vial IV 11/09/24 16:08 60 mg ONCE ONE Administration ORDERS Category Date Time Status CT cervical spine wo con Stat Cat Scan 11/09/24 15:[address] head/brain wo con Stat Cat Scan 11/09/24 15:50 Completed HIV Combo Stat Lab 11/09/24 15:47 Completed Hepatitis C Ab Qual. W/ RFX Stat Lab 11/09/24 15:47 Completed Urinalysis and Microscopic Stat Lab 11/09/24 17:07 Completed Urine Culture Stat Micro 11/09/24 17:07 Received Medical Decision Narrative: patient is a 59-year-old male presenting to the emergency department for evaluation of fall at the [employer] store. He tripped over the mat and he fell backwards causing a laceration to the back of his head. He had no loss of consciousness. He has no other injury.. Patient is hemodynamically stable and nontoxic-appearing upon arrival, afebrile. Differential diagnosis includes laceration, head injury, neck pain strain, among others. Workup will be conducted with specific imaging. Initial inventions include analgesics. Imaging informally interpreted by me and remarkable for thing acute. Formal imaging read remarkable for please see radiology report for formal read. Upon repeat evaluation patient's pain is improved. Procedures Laceration Laceration 1: Site: scalp Size (cm): 4 Description: linear Depth: simple, single layer Local Anesthetic: lidocaine 1% Amount of anesthesia used (mL): 3 Pre-repair: irrigated extensively Skin layer closed with: other (Justin) Number of sutures: 4 Critical Care Critical Care Time Critical Care Time: No
--- NOTE | 2024-11-09 15:52 | PC.NURSE ---
Rounded on pt. No needs stated.
--- OUTSIDE RECORDS SUMMARY | 2024-11-09 15:57 | XMS_ITS | Referral Summary ---
Author Organization [facility] [employer] Address [address] [place] [address] Care Team Providers Care Market Research Assistant Name Role Phone [facility], Provider Not In The System MD Primary Care Provider Unavailable Allergies No known active allergies Medications metoprolol tartrate (LOPRESSOR) 50 MG tablet Take 1 tablet (50 mg total) by mouth 2 (two) times daily. 09/05/2023 Active Active Problems No known active problems Social History Tobacco Use Types Packs/Day Years Used Date Smoking Tobacco: Never Smokeless Tobacco: Never Tobacco Cessation:Counseling Given: Not Answered Interpersonal Safety Answer Date Record ed Family or friends hurt you Not on file 09/19 Family or friends insult you Not on file Family or friends threaten you Not on file 0 09/20/2023 Family or friends scream or curse at you Not on file 09/20/2023 Food Insecurity Answer Date Recorded Food run out past 12 months Not on file 09/03 Food did not last past 12 months Not on file 09/20/2023 Employment Answer Date Recorded Help finding and keeping a job Not on file 0 09/20/2023 Family and Community Support Answer Emery e Recorded Help with Day to Day Activities Not on file 09/20/2023 Feeling Lonely or Isolated Not on file 09/19 Educational Attainment Answer Date Tejinder rded Speak language other than Norwegian at home Not on file 09/20/2023 Want help with school or training Not on file 09/20/2023 Depression Answer Date Recorded PHQ-2 Risk Not on file 09/20/2023 Disabilities Answer Date Recorded Difficulty concentrating Not on file 024 Difficulty doing errands alone Not on file 0 09/20/2023 Substance Use Answer Date Recorded Used prescription meds for non-medical reasons N ot on file 09/20/2023 Used illegal drugs past 12 months Not on file 09/20/2023 Sex and Gender Information Value Date Recorded Sex Assigned at Not on file Legal Sex Male 9:42 AM CDT Gender Identity Not on file Sexual Orientation Not on file Last Filed Vital Signs Vital Sign Reading Time Taken Comments Blood Pressure 140/81 09/26/2023 1:15 PM EDT Pulse 76 09/26/2023 1:15 PM EDT Temperature 36.8 C (98.2 F) 09/26/2023 1:07 PM EDT Respiratory Rate 16 09/26/2023 1:15 PM EDT Oxygen Saturation 99% 09/26/2023 1:15 PM EDT Inhaled Oxygen Concentration - - Weight 58.1 kg (128 lb) 09/26/2023 9:55 AM EDT Height 160 cm (5' 2.99 ) 09/26/2023 9:55 AM EDT Body Mass Index 22.68 09/26/2023 9:55 AM EDT Plan of Treatment Not on file Insurance MEDICARE PART A B Care Teams Market Research Assistant Relationship Specialty Start Date End Date [facility], Provider Not In The System, [place] [address] PCP - General 09/21/23
--- OUTSIDE RECORDS SUMMARY | 2024-11-09 15:57 | XMS_ITS | Clinical Summary ---
Author Organization [facility] [employer] Address [address] [place] [address] Care Team Providers Care Home Care Rn Name Role Phone [facility], Provider Not In The System MD Primary [...] Date Tejinder rded Speak language other than Guamanian at home Not on file 09/20/2023 Want [...] 09/26/2023 9:55 AM EDT Plan of Treatment Health Maintenance Due Date Last Done Comments CT Colonography 1963 Colonoscopy 1963 Colorectal Cancer Screening 1963 FOBT/FIT 1963 Fit-DNA (Cologuard) 1963 Sigmoidoscopy 1963 Depression Screening (12+) 1975 HIV Screening 09/07/1978 Hepatitis C Screening 09/07/1981 DTAP/TDAP/TD VACCINES (1 - Tdap) 09/07/1982 Medicare Initial AWV [id number] 07/07/1989 Lipid Panel 09/07/1998 Pneumococcal 50+ years (1 of 1 - PCV) 09/07/2013 Shingles Vaccine (Zoster) (1 of 2) 09/07/2013 COVID-19 VACCINE (3 - season) 02/04/202406/2020, 08/12/2020 Tobacco Cessation Counseling and Screening (12+) 09/25/2024 09/26/2023 Influenza Vaccine (Season Ended) 2025 Respiratory Syncytial Virus (RSV) Adult or (1 - 1-dose 75+ series) 09/07/2038 Insurance MEDICARE [place] [address] [place] [id number] Care Teams Home Care Rn Relationship Specialty Start Date End Date [facility], Provider Not In The System, [place] [address] PCP - General 09/21/23
--- OUTSIDE RECORDS SUMMARY | 2024-11-09 15:57 | XMS_ITS | Clinical Summary ---
Author Organization Healthcare Address [address] [place] [address] Care Team Providers Care Grizzlyman Name Role Phone Huang Aguila MD Primary Care Provider [phone] Social History Tobacco Use Types Packs/Day Years Used Date Smoking Tobacco: Never Alcohol Use Standard Drinks/Week Comments No 0 (1 standard drink = 0.6 oz pur e alcohol) Sex and Gender Information Value Date Recorded Sex Assigned at Not on file Legal Sex Male 7:39 PM EDT Gender Identity Not on file Sexual Orientation Not on file Last Filed Vital Signs Vital Sign Reading Time Taken Comments Blood Pressure - - Pulse - - Temperature - - Respiratory Rate - - Oxygen Saturation - - Inhaled Oxygen Concentration - - Weight 66.2 kg (146 lb 0.2 oz) 11/04/2016 3:06 P M EDT Height 160 cm (5' 3 ) 11/04/2016 3:06 PM EDT Body Mass Index 25.86 11/04/2016 3:06 PM EDT Plan of Treatment Not on file Care Teams Grizzlyman Relationship Specialty Start Date End Date Huang Aguila MD [address] [place] [address] [address] [place] [address] PCP - General 10/16/20
--- OUTSIDE RECORDS SUMMARY | 2024-11-09 15:57 | XMS_ITS | Data Portability ---
Author Organization [facility] DAYANNA Morin [place] CLOS[place] Address [address] [place] [address] Care Team Providers Care Branch Logistics Supervisor Name Role Phone OREN BENITEZ Referring Provider OREN BENITEZ Primary Care Provider Assessment No assessment recorded. Plan of Treatment Reminders Order Date Submit Date Provider Last Modified By Organization Details Last Modified Time Details Appointments RECHECK 2024 03:30P M OBED GONZALEZ MD Not available Not available Not available Lab urinalysi s panel, auto 2023 024 [email or web address] [facility], [address], [address], [place], [address], 04/28/2024 16:30:11 urinalysi s panel, auto 2023 024 glenna [facility], [address], [address], [place], [address], 01/09/2024 19:22:49 kidney stone analysis 2023 024 [facility], [address] [place] [address], [address], 01/10/2024 21:04:25 urinalysi s panel, auto 2023 024 glenna [facility], [address], [address], [place], [address], 10/17/2023 22:44:04 urinalysi s panel, auto 2023 024 [email or web address] [facility], [address], [address], [place], [address], 09/12/2023 15:12:38 urinalysi s panel, auto 2023 024 [email or web address] [facility], [address], [address], [place], [address], 08/28/2023 22:15:15 Referral None recorded. Procedures None recorded. Surgeries None recorded. Imaging None recorded. Medication Orders hydrocodo ne 7.5 mg-acetam inophen 325 mg tablet 2023 024 [email or web address] [facility], [address], [address], 09/12/2023 23:49:40 Patient TargetsNo targets recorded. Patient Instructions Encounter Date Encounter Id Patient Instructions Last Modified By Organization Details Last Modified Time 10/17/2023 [id number] learning about healthy weight [email or web address] Not available 10/17/2023 22:44:02 Reason for Referral None Reported. Results Created Date Observation Date Name Description Value Unit Range Abnormal Flag Note LastModifiedBy Organization Detail LastModifiedTime 08/28/1908/28/2023 urina lysis panel , auto Unknown Analyte Clean Catch Not Available [facility] [address], [place], [address], 08/28/2023 16:14:42 08/28/1908/28/2023 urina lysis panel , auto Unknown Analyte Yellow Not Available [facility] [address], [address], 08/28/2023 16:14:42 08/28/19 24 08/28/2023 urina lysis panel , auto Unknown Analyte Clear Not Available [facility] [address], [place], [address], 08/28/2023 16:14:42 08/28/19 24 08/28/2023 urina lysis panel , auto Unknown Analyte 1.005 Not Available [facility] [address], [place], [address], 08/28/2023 16:14:42 08/28/19 24 08/28/2023 urina lysis panel , auto Unknown Analyte 1.003- 1.035 Not Available [facility] [address], [place], [address], 08/28/2023 16:14:42 08/28/19 24 08/28/2023 urina lysis panel , auto Unknown Analyte 7.0 Not Available [facility] [address], [place], [address], 08/28/2023 16:14:42 08/28/19 24 08/28/2023 urina lysis panel , auto Unknown Analyte 5.0-8. 0 Not Available [facility] [address], [place], [address], 08/28/2023 16:14:42 08/28/19 24 08/28/2023 urina lysis panel , auto Unknown Analyte Negati ve Not Available [facility] [address], [place], [address], 08/28/2023 16:14:42 08/28/19 24 08/28/2023 urina lysis panel , auto Unknown Analyte Negati ve Not Available [facility] [address], [place], [address], 08/28/2023 16:14:42 08/28/19 24 08/28/2023 urina lysis panel , auto Unknown Analyte Negati ve Not Available [facility] [address], [place], [address], 08/28/2023 16:14:42 08/28/19 24 08/28/2023 urina lysis panel , auto Unknown Analyte Negati ve Not Available [facility] [address], [place], [address], 08/28/2023 16:14:42 08/28/19 24 08/28/2023 urina lysis panel , auto Unknown Analyte Negati ve Not Available [facility] [address], [place], [address], 08/28/2023 16:14:42 08/28/19 24 08/28/2023 urina lysis panel , auto Unknown Analyte Negati ve Not Available [facility] [address], [place], [address], 08/28/2023 16:14:42 08/28/19 24 08/28/2023 urina lysis panel , auto Unknown Analyte Normal Not Available [facility] [address], [place], [address], 08/28/2023 16:14:42 08/28/19 24 08/28/2023 urina lysis panel , auto Unknown Analyte Normal Not Available [facility] [address], [place], [address], 08/28/2023 16:14:42 08/28/19 24 08/28/2023 urina lysis panel , auto Unknown Analyte Negati ve Not Available [facility] [address], [place], [address], 08/28/2023 16:14:42 08/28/19 24 08/28/2023 urina lysis panel , auto Unknown Analyte Negati ve Not Available [facility] [address], [place], [address], 08/28/2023 16:14:42 08/28/19 24 08/28/2023 urina lysis panel , auto Unknown Analyte Normal Not Available [facility] [address], [place], [address], 08/28/2023 16:14:42 08/28/19 24 08/28/2023 urina lysis panel , auto Unknown Analyte Normal 1 mg/dl Not Available [facility] [address], [place], [address], 08/28/2023 16:14:42 08/28/19 24 08/28/2023 urina lysis panel , auto Unknown Analyte Negati ve Not Available [facility] [address], [place], [address], 08/28/2023 16:14:42 08/28/19 24 08/28/2023 urina lysis panel , auto Unknown Analyte Negati ve Not Available [facility] [address], [place], [address], 08/28/2023 16:14:42 08/28/19 24 08/28/2023 urina lysis panel , auto Unknown Analyte Negati ve Not Available [facility] [address], [place], [address], 08/28/2023 16:14:42 08/28/19 24 08/28/2023 urina lysis panel , auto Unknown Analyte Negati ve Not Available [facility] [address], [place], [address], 08/28/2023 16:14:42 09/12/19 24 09/12/2023 urina lysis panel , auto Unknown Analyte Clean Catch Not Available [facility] [address], [place], [address], 09/12/2023 13:21:17 09/12/19 24 09/12/2023 urina lysis panel , auto Unknown Analyte Yellow Not Available [facility] [address], [place], [address], 09/12/2023 13:21:17 09/12/19 24 09/12/2023 urina lysis panel , auto Unknown Analyte Clear Not Available [facility] [address], [place], [address], 09/12/2023 13:21:17 09/12/19 24 09/12/2023 urina lysis panel , auto Unknown Analyte 1.005 Not Available [facility] [address], [place], [address], 09/12/2023 13:21:17 09/12/19 24 09/12/2023 urina lysis panel , auto Unknown Analyte 1.003- 1.035 Not Available [facility] [address], [place], [address], 09/12/2023 13:21:17 09/12/1909/12/2023 urina lysis panel , auto Unknown Analyte 5.0 Not Available [facility] [address], [place], [address], 09/12/2023 13:21:17 09/12/19 24 09/12/2023 urina lysis panel , auto Unknown Analyte 5.0-8. 0 Not Available [facility] [address], [place], [address], 09/12/2023 13:21:17 09/12/19 24 09/12/2023 urina lysis panel , auto Unknown Analyte Negati ve Not Available [facility] [address], [place], [address], 09/12/2023 13:21:17 09/12/19 24 09/12/2023 urina lysis panel , auto Unknown Analyte Negati ve Not Available [facility] [address], [place], [address], 09/12/2023 13:21:17 09/12/19 24 09/12/2023 urina lysis panel , auto Unknown Analyte Negati ve Not Available [facility] [address], [place], [address], 09/12/2023 13:21:17 09/12/19 24 09/12/2023 urina lysis panel , auto Unknown Analyte Negati ve Not Available [facility] [address], [place], [address], 09/12/2023 13:21:17 09/12/1909/12/2023 urina lysis panel , auto Unknown Analyte Negati ve Not Available [facility] [address], [place], [address], 09/12/2023 13:21:17 09/12/19 24 09/12/2023 urina lysis panel , auto Unknown Analyte Negati ve Not Available [facility] [address], [place], [address], 09/12/2023 13:21:17 09/12/19 24 09/12/2023 urina lysis panel , auto Unknown Analyte Normal Not Available [facility] [address], [place], [address], 09/12/2023 13:21:17 09/12/19 24 09/12/2023 urina lysis panel , auto Unknown Analyte Normal Not Available [facility] [address], [place], [address], 09/12/2023 13:21:17 09/12/19 24 09/12/2023 urina lysis panel , auto Unknown Analyte Negati ve Not Available [facility] [address], [place], [address], 09/12/2023 13:21:17 09/12/19 24 09/12/2023 urina lysis panel , auto Unknown Analyte Negati ve Not Available [facility] [address], [place], [address], 09/12/2023 13:21:17 09/12/19 24 09/12/2023 urina lysis panel , auto Unknown Analyte Normal Not Available [facility] [address], [place], [address], 09/12/2023 13:21:17 09/12/19 24 09/12/2023 urina lysis panel , auto Unknown Analyte Normal 1 mg/dl Not Available [facility] [address], [place], [address], 09/12/2023 13:21:17 09/12/19 24 09/12/2023 urina lysis panel , auto Unknown Analyte Negati ve Not Available [facility] [address], [place], [address], 09/12/2023 13:21:17 09/12/19 24 09/12/2023 urina lysis panel , auto Unknown Analyte Negati ve Not Available [facility] [address], [place], [address], 09/12/2023 13:21:17 09/12/19 24 09/12/2023 urina lysis panel , auto Unknown Analyte Negati ve Not Available [facility] [address], [place], [address], 09/12/2023 13:21:17 09/12/19 24 09/12/2023 urina lysis panel , auto Unknown Analyte Negati ve Not Available [facility] [address], [place], [address], 09/12/2023 13:21:17 10/17/19 24 10/17/2023 urina lysis panel , auto Unknown Analyte Clean Catch Not Available [facility] [address], [place], [address], 10/17/2023 13:38:29 10/17/19 24 10/17/2023 urina lysis panel , auto Unknown Analyte Yellow Not Available [facility] [address], [place], [address], 10/17/2023 13:38:29 10/17/19 24 10/17/2023 urina lysis panel , auto Unknown Analyte Clear Not Available [facility] [address], [place], [address], 10/17/2023 13:38:29 10/17/19 24 10/17/2023 urina lysis panel , auto Unknown Analyte 1.005 Not Available [facility] [address], [place], [address], 10/17/2023 13:38:29 10/17/19 24 10/17/2023 urina lysis panel , auto Unknown Analyte 1.003- 1.035 Not Available [facility] [address], [place], [address], 10/17/2023 13:38:29 10/17/19 24 10/17/2023 urina lysis panel , auto Unknown Analyte 7.0 Not Available [facility] [address], [place], [address], 10/17/2023 13:38:29 10/17/19 24 10/17/2023 urina lysis panel , auto Unknown Analyte 5.0-8. 0 Not Available [facility] [address], [place], [address], 10/17/2023 13:38:29 10/17/19 24 10/17/2023 urina lysis panel , auto Unknown Analyte Negati ve Not Available [facility] [address], [place], [address], 10/17/2023 13:38:29 10/17/19 24 10/17/2023 urina lysis panel , auto Unknown Analyte Negati ve Not Available [facility] [address], [place], [address], 10/17/2023 13:38:29 10/17/19 24 10/17/2023 urina lysis panel , auto Unknown Analyte Negati ve Not Available [facility] [address], [place], [address], 10/17/2023 13:38:29 10/17/19 24 10/17/2023 urina lysis panel , auto Unknown Analyte Negati ve Not Available [facility] [address], [place], [address], 10/17/2023 13:38:29 10/17/19 24 10/17/2023 urina lysis panel , auto Unknown Analyte Negati ve Not Available [facility] [address], [place], [address], 10/17/2023 13:38:29 10/17/19 24 10/17/2023 urina lysis panel , auto Unknown Analyte Negati ve Not Available [facility] [address], [place], [address], 10/17/2023 13:38:29 10/17/19 24 10/17/2023 urina lysis panel , auto Unknown Analyte Normal Not Available [facility] [address], [place], [address], 10/17/2023 13:38:29 10/17/19 24 10/17/2023 urina lysis panel , auto Unknown Analyte Normal Not Available [facility] [address], [place], [address], 10/17/2023 13:38:29 10/17/19 24 10/17/2023 urina lysis panel , auto Unknown Analyte Negati ve Not Available [facility] [address], [place], [address], 10/17/2023 13:38:29 10/17/19 24 10/17/2023 urina lysis panel , auto Unknown Analyte Negati ve Not Available [facility] [address], [place], [address], 10/17/2023 13:38:29 10/17/19 24 10/17/2023 urina lysis panel , auto Unknown Analyte Normal Not Available [facility] [address], [place], [address], 10/17/2023 13:38:29 10/17/19 24 10/17/2023 urina lysis panel , auto Unknown Analyte Normal 1 mg/dl Not Available [facility] [address], [place], [address], 10/17/2023 13:38:29 10/17/19 24 10/17/2023 urina lysis panel , auto Unknown Analyte Negati ve Not Available [facility] [address], [place], [address], 10/17/2023 13:38:29 10/17/19 24 10/17/2023 urina lysis panel , auto Unknown Analyte Negati ve Not Available [facility] [address], [place], [address], 10/17/2023 13:38:29 10/17/19 24 10/17/2023 urina lysis panel , auto Unknown Analyte Negati ve Not Available [facility] [address], [place], [address], 10/17/2023 13:38:29 10/17/19 24 10/17/2023 urina lysis panel , auto Unknown Analyte Negati ve Not Available [facility] [address], [place], [address], 10/17/2023 13:38:29 01/03/20 24 01/10/2024 STONE LALITA SIS composition SEE NOTE normal Calci um Oxala te Dihyd rate (Wedd ellit e) 10% Calci um Oxala te Monoh ydrat e (Whew ellit e) 90% Not Available [facility] [address] [place], [address], 01/10/2024 21:04:25 01/03/20 24 01/10/2024 STONE LALITA SIS weight 0.001 g normal This test was devel oped and its lalita tical perfo rmanc e james cteri stics have been deter mined by [employer]. It has not been clear ed or appro rene by FDA. This assay has been valid ated pursu ant to the CLIA regul ation s and is used for clini toni purpo ses. Not Available [facility] [address] [place] [address], [address], 01/10/2024 21:04:25 01/03/20 24 01/03/2024 urina lysis panel , auto Unknown Analyte Clean Catch Not Available [facility] [address], [place], [address], 01/03/2024 13:37:54 01/03/20 24 01/03/2024 urina lysis panel , auto Unknown Analyte Yellow Not Available [facility] [address], [place], [address], 01/03/2024 13:37:54 01/03/20 24 01/03/2024 urina lysis panel , auto Unknown Analyte Clear Not Available [facility] [address], [place], [address], 01/03/2024 13:37:54 01/03/20 24 01/03/2024 urina lysis panel , auto Unknown Analyte 1.000 Not Available [facility] [address], [place], [address], 01/03/2024 13:37:54 01/03/20 24 01/03/2024 urina lysis panel , auto Unknown Analyte 1.003- 1.035 Not Available [facility] [address], [place], [address], 01/03/2024 13:37:54 01/03/20 24 01/03/2024 urina lysis panel , auto Unknown Analyte 6.5 Not Available [facility] [address], [place], [address], 01/03/2024 13:37:54 01/03/20 24 01/03/2024 urina lysis panel , auto Unknown Analyte 5.0-8. 0 Not Available [facility] [address], [place], [address], 01/03/2024 13:37:54 01/03/20 24 01/03/2024 urina lysis panel , auto Unknown Analyte Negati ve Not Available [facility] [address], [place], [address], 01/03/2024 13:37:54 01/03/20 24 01/03/2024 urina lysis panel , auto Unknown Analyte Negati ve Not Available [facility] [address], [place], [address], 01/03/2024 13:37:54 01/03/20 24 01/03/2024 urina lysis panel , auto Unknown Analyte Negati ve Not Available [facility] [address], [place], [address], 01/03/2024 13:37:54 01/03/20 24 01/03/2024 urina lysis panel , auto Unknown Analyte Negati ve Not Available [facility] [address], [place], [address], 01/03/2024 13:37:54 01/03/20 24 01/03/2024 urina lysis panel , auto Unknown Analyte Negati ve Not Available [facility] [address], [place], [address], 01/03/2024 13:37:54 01/03/20 24 01/03/2024 urina lysis panel , auto Unknown Analyte Negati ve Not Available [facility] [address], [place], [address], 01/03/2024 13:37:54 01/03/20 24 01/03/2024 urina lysis panel , auto Unknown Analyte 50 mg/dl Not Available [facility] [address], [place], [address], 01/03/2024 13:37:54 01/03/20 24 01/03/2024 urina lysis panel , auto Unknown Analyte Normal Not Available [facility] [address], [place], [place], [address], 01/03/2024 13:37:54 01/03/20 24 01/03/2024 urina lysis panel , auto Unknown Analyte Negati ve Not Available [facility] [address], [place], [address], 01/03/2024 13:37:54 01/03/20 24 01/03/2024 urina lysis panel , auto Unknown Analyte Negati ve Not Available [facility] [address], [place], [address], 01/03/2024 13:37:54 01/03/20 24 01/03/2024 urina lysis panel , auto Unknown Analyte Normal Not Available [facility] [address], [place], [address], 01/03/2024 13:37:54 01/03/20 24 01/03/2024 urina lysis panel , auto Unknown Analyte Normal 1 mg/dl Not Available [facility] [address], [place], [address], 01/03/2024 13:37:54 01/03/20 24 01/03/2024 urina lysis panel , auto Unknown Analyte Negati ve Not Available [facility] [address], [place], [address], 01/03/2024 13:37:54 01/03/20 24 01/03/2024 urina lysis panel , auto Unknown Analyte Negati ve Not Available [facility] [address], [place], [address], 01/03/2024 13:37:54 07/31/01/03/2024 urina lysis panel , auto Unknown Analyte Negati ve Not Available [facility] [address], [place], [address], 01/03/2024 13:37:54 01/03/20 24 01/03/2024 urina lysis panel , auto Unknown Analyte Negati ve Not Available [facility] [address], [place], [address], 01/03/2024 13:37:54 04/22/2004/22/2024 urina lysis panel , auto Unknown Analyte Clean Catch Not Available [facility] [address], [place], [address], 04/22/2024 14:59:47 04/22/2004/22/2024 urina lysis panel , auto Unknown Analyte Yellow Not Available [facility] [address], [place], [address], 04/22/2024 14:59:47 04/22/20 24 04/22/2024 urina lysis panel , auto Unknown Analyte Clear Not Available [facility] [address], [place], [address], 04/22/2024 14:59:47 04/22/2004/22/2024 urina lysis panel , auto Unknown Analyte 1.005 Not Available [facility] [address], [place], [address], 04/22/2024 14:59:47 04/22/20 24 04/22/2024 urina lysis panel , auto Unknown Analyte 1.003- 1.035 Not Available [facility] [address], [place], [address], 04/22/2024 14:59:47 04/22/20 24 04/22/2024 urina lysis panel , auto Unknown Analyte 6.0 Not Available [facility] [address], [place], [address], 04/22/2024 14:59:47 04/22/2004/22/2024 urina lysis panel , auto Unknown Analyte 5.0-8. 0 Not Available [facility] [address], [place], [address], 04/22/2024 14:59:47 04/22/2004/22/2024 urina lysis panel , auto Unknown Analyte Negati ve Not Available [facility] [address], [place], [address], 04/22/2024 14:59:47 04/22/20 24 04/22/2024 urina lysis panel , auto Unknown Analyte Negati ve Not Available [facility] [address], [place], [address], 04/22/2024 14:59:47 04/22/2004/22/2024 urina lysis panel , auto Unknown Analyte Negati ve Not Available [facility] [address], [place], [address], 04/22/2024 14:59:47 04/22/20 24 04/22/2024 urina lysis panel , auto Unknown Analyte Negati ve Not Available [facility] [address], [place], [address], 04/22/2024 14:59:47 04/22/2004/22/2024 urina lysis panel , auto Unknown Analyte Negati ve Not Available [facility] [address], [place], [address], 04/22/2024 14:59:47 04/22/2004/22/2024 urina lysis panel , auto Unknown Analyte Negati ve Not Available [facility] [address], [place], [address], 04/22/2024 14:59:47 04/22/2004/22/2024 urina lysis panel , auto Unknown Analyte 50 mg/dl Not Available [facility] [address], [place], [address], 04/22/2024 14:59:47 04/22/20 24 04/22/2024 urina lysis panel , auto Unknown Analyte Normal Not Available [facility] [address], [place], [address], 04/22/2024 14:59:47 04/22/20 24 04/22/2024 urina lysis panel , auto Unknown Analyte Negati ve Not Available [facility] [address], [place], [address], 04/22/2024 14:59:47 04/22/20 24 04/22/2024 urina lysis panel , auto Unknown Analyte Negati ve Not Available [facility] [address], [place], [address], 04/22/2024 14:59:47 04/22/2004/22/2024 urina lysis panel , auto Unknown Analyte Normal Not Available [facility] [address], [place], [address], 04/22/2024 14:59:47 04/22/2004/22/2024 urina lysis panel , auto Unknown Analyte Normal 1 mg/dl Not Available [facility] [address], [place], [address], 04/22/2024 14:59:47 04/22/2004/22/2024 urina lysis panel , auto Unknown Analyte Negati ve Not Available [facility] [address], [place], [address], 04/22/2024 14:59:47 04/22/20 24 04/22/2024 urina lysis panel , auto Unknown Analyte Negati ve Not Available [facility] [address], [place], [address], 04/22/2024 14:59:47 04/22/2004/22/2024 urina lysis panel , auto Unknown Analyte Negati ve Not Available [facility] [address], [place], [address], 04/22/2024 14:59:47 04/22/2004/22/2024 urina lysis panel , auto Unknown Analyte Negati ve Not Available [facility] [address], [place], [address], 04/22/2024 14:59:47 09/06/19 24 07/19/2023 XR, lumba r spine No observ ation record ed. BARCODE Not Available 2023 17:12:01 12/13/19 24 12/02/2023 CT, abdom en + pelvi s, w/o contr ast No observ ation record ed. [email or web address] [facility] [address], [place], [address], 01/05/2024 12:30:36 03/29/20 24 03/27/2024 XR, abdom en, 1 view No observ ation record ed. [email or web address] [facility] [address], [place], [address], 04/19/2024 14:25:11 Result Notes None recorded. Problems No Known Problems Procedures Surgical History Date Name Laterality Status Provider Name and Address Organization Details Recorded Time Kidney Stone Removal completed [facility] 08/28/2023 16:03:11 procedure on neck completed [facility] 08/28/2023 16:03:22 Imaging Results None recorded. Procedure Notes None recorded. Medical Equipment None Reported. Allergies No known drug allergies Medications Name Sig Start Date Stop Date Status Note LastModified by Organization Details LastModified Time atorvastatin 10 mg tablet Take 1 tablet every day by oral route. active Not Available Not Available No t Available hydrocodone 7.5 mg-acetaminoph en 325 mg tablet Take 1 tablet every 6 hours by oral route. 024 active Not Available Not Available Not Avai lable lisinopril 10 mg-hydrochloro thiazide 12.5 mg tablet Take 1 tablet every day by oral route. active Not Available Not Available No t Available tramadol active Not Available Not Avai lable Not Available baclofen active Not Available Not Avai lable Not Available furosemide active Not Available Not Av ailable Not Available metoprolol succinate active Not Available Not Available No t Available Vitamin D3 active Not Available Not Av ailable Not Available Vitamin C (ascorbate calcium) active Not Available Not Available Not Available Vitals Date Recorded Body weight Body mass index (BMI) Body height Provider Name and Address Organization Details Last Updated DateTime 08/28/2023 49731.89 g 26.5 kg/m2 157.48 cm Angie Fitch [facility] 08/28/2023 16:05:31 Date Recorded Body height Body mass index (BMI) Body weight Provider Name and Address Organization Details Last Updated DateTime 09/12/2023 157.48 cm 26.5 kg/m2 04280.89 g Juany Mortensen [facility] 09/12/2023 14:41:50 Date Recorded Body height Body mass index (BMI) Body weight Body temperature Heart rate Systolic blood pressure Diastolic blood pressure Provider Name and Address Organization Details Last Updated DateTime 157.48 cm 26.5 kg/m2 21283.8 9 g 97.1 [degF] 59 /min 117 mm[Hg] 75 mm[Hg] Anthony Jernigan [facility] 13:39:33 Date Recorded Body height Body mass index (BMI) Body weight Provider Name and Address Organization Details Last Updated DateTime 01/03/2024 157.48 cm 25.6 kg/m2 94523.93 g Meli Steel [facility] 01/03/2024 14:53:32 Social History Question Answer Notes LastModified by Organizat ion Details LastModified Time Tobacco Smoking Status [email or web address] 16:02:51 What Was The Date Of Your Most Recent Tobacco Screening? 10/17/2023 [email or web address] Information not available 10/17/2023 What Is Your Relationship Status? Information not available 08/28/2023 Sex: Unknown Functional Status Question Answer Note LastModified by Organizat ion Details LastModified Time Do you or have you ever used any other forms of tobacco or nicotine? No Information not available 08/28/2023 What is your level of alcohol consumption? Occasional Information not available 08/28/2023 Mental Status None recorded. Family History Nothing Reported. Medical History No medical history recorded. Past Encounters Encounter ID Performer Location Encounter Start Date Encounter Closed Date Diagnosis/Indication Diagnosis SNOMED-CT Code Diagnosis ICD10 Code Diagnosis Note [id number] OBED GONZALEZ MD [facility] [address] [place] [address] 08/28/2023 15:15:44 08/28/2023 16:59:14 Urolithiasis 96546857 N20.[address] scan stone protocol Flank pain 539310572 R10 .9 [id number] OBED GONZALEZ MD [facility] [address] [place] [address] 09/12/2023 13:07:19 09/12/2023 15:12:41 Kidney stone 35767000 N20.0 We will arrange for right shockwave lithotrips y [id number] OBED GONZALEZ MD [facility] [address] [address] 10/17/2023 13:24:54 10/17/2023 14:29:05 Urolithiasis 40848456 N20.9 Follow-up 6 months with KUB [id number] OBED GONZALEZ MD [facility] [address] [place] [address] 01/03/2024 13:26:38 01/03/2024 15:33:27 Kidney stone 86928148 N20.0 We will follow left sided stone and see in 6 months with KUB [id number] OBED GONZALEZ MD [facility] [address] [address] 04/22/2024 14:05:54 04/22/2024 16:50:12 Urolithiasis 20908444 N20.9 Follow-up 6 months with KUB Health Concerns Section Related Observation LastModified by Organization Detai ls LastModified Time None Recorded Concern Status LastModified by Organization Details LastModified Time None Recorded Advance Directives Directive None Recorded Payers Insurance Date Sequence Insurance Name Policy Number Policy Merino Covered Member ID Merino Member ID Guarantor Name 07/19/2024 1 [place]ARE[place] Sher Johnson [id number] Sher Johnson 07/19/2024 2 [employer] [facility] [place] (MEDICAID HMO) Sher Johnson [id number] Sher Jonhson 07/19/2024 1 [employer] (MEDICARE REPLACEMENT/ ADVANTAGE - PPO) [id number] Sher Johnson [id number] Sher Johnson Notes Date Note Type Note Provider Name and Address Organization Details Recorded Time 08/28/2023 text/html Patient was seen by me several years ago for urolithiasis. He has recently had some back pain right greater than left and had an abdominal x-ray which showed considerable spinal arthritis but also what looks to be a 7 mm stone in his right kidney. He has had no CT scan. He has seen no gross hematuria. He does have some discomfort with urination at times. He typically has nocturia x 2. We discussed the need to achieve better clarity and suggest we arrange for CT scan of the abdomen pelvis stone protocol. He has previous history of cerebral palsy. He walks with crutches. OBED GONZALEZ [facility] [place], [address], [facility] 08/28/2023 22:16:27 09/12/2023 text/html Patient was seen on the for initial visit with possible right renal stone on abdominal film. I had arranged for him to have a CT scan. In the interim he had right-sided flank pain and was seen at [facility] emergency room and had a CT scan. This demonstrates a 10 mm stone right kidney. It seems to be an infundibulum calyx but no ureteral obstruction. No additional stones are noted. Due to the stones location I suggest right-sided shockwave lithotripsy. This should be treated and effective without ureteral stent. He and his understand and wish to proceed. OBED GONZALEZ [facility] [place], [address], [facility] 09/12/2023 23:51:42 10/17/2023 text/html Patient is here 3 weeks following right-sided shockwave lithotripsy. He has passed some stone material without significant discomfort. His stone appeared to be well treated. It was 7 mm in size midpole right kidney. We discussed strategies for stone prevention. OBED GONZALEZ MD [facility] [place], [address], [facility] 10/17/2023 22:44:29 01/03/2024 text/html Patient was last seen in October following shockwave lithotripsy. He was having some back pain recently and had evaluation at [facility]. CT scan there showed a 5 mm stone lower pole left kidney. His previous shockwave was on the right. I reviewed a disc and there is only a tiny bit of material lower pole right kidney. We discussed whether to intervene on the left side at this point suggest observation. OBED GONZALEZ MD [facility] [place], [address], [facility] 01/04/2024 23:18:39 04/22/2024 text/html Patient is here in follow-up of urolithiasis. He was last seen in December following shockwave lithotripsy on the right. A CT scan at [facility] following that showed a 5 mm lower pole stone on the left. I reviewed his disc at that time and it only showed a tiny bit material lower pole n on the right. He elected to follow this. He has had no flank pain. His urine today is unremarkable. He continues to drink copious fluids. He would like to continue to follow the stone. He will follow-up in 6 months with KUB prior to visit. His most recent KUB had considerable stool and no stones were visualized. I reviewed his images on a disk. [place], [address], [facility] 04/28/2024 16:30:38
[2024-11-09 16:00] VITALS: BP 133/83; PULSE 79; RESP 18; O2SAT 97
[2024-11-09] MEDS: HYDROCODONE/APAP 5/325 MG TABLET 2 TAB PO (16:08)
[2024-11-09] MEDS: ORPHENADRINE CITRATE 60MG/2ML VIAL 60 MG IV (16:10)
[2024-11-09] MEDS: KETOROLAC 30MG/ML VIAL 30 MG IV (16:10)
[2024-11-09 16:30] VITALS: BP 126/80; PULSE 74; RESP 18; O2SAT 96
[2024-11-09 17:00] VITALS: BP 135/87; PULSE 73; O2SAT 96
[2024-11-09 17:11] LABS: HIV Combo NEGATIVE (Negative)
[2024-11-09 17:12] LABS: Microscopic, Urine URINE MICROSCOPIC (MICROSCOPIC)
[2024-11-09 17:13] LABS: Appearance,Urine Clear (Clear); Bilirubin,Urine Negative (Negative); Blood, Urine Negative (Negative); Color,Urine YELLOW (Yellow); Glucose,Urine (UA) Negative (Negative); Ketones,Urine Negative (Negative); Leukocyte Esterase,Urine Negative (Negative); Nitrate,Urine Negative (Negative); Protein,Urine Negative (Negative); Urobilinogen,Urine 0.2 EU/dl (0.2)
[2024-11-09 17:19] LABS: Hepatitis C Ab Qual. W/ RFX NEGATIVE (Negative)
[2024-11-09 17:41] VITALS: BP 145/75; PULSE 86; RESP 15; TEMP 36.9; O2SAT 99
[2024-11-09 17:43] LABS: Bacteria,Urine Trace /lpf; WBC,Urine Occasional #/hpf (0-3)
== END 2024-11-09 17:42 | disposition home or self-care (01) ==
PROVIDERS: Nurse Practitioner; Emergency Provider Student in an Organized Health Care Education/Training Program; PCP Family Medicine
DX: S09.90XA Unspecified injury of head, initial encounter (principal); S01.01XA Laceration without foreign body of scalp, initial encounter; G80.9 Cerebral palsy, unspecified; W01.10XA Fall on same level from slipping, tripping and stumbling with subsequent striking against unspecified object, initial encounter; Z11.59 Encounter for screening for other viral diseases; Z11.4 Encounter for screening for human immunodeficiency virus [HIV]
CPT/HCPCS: 12002; 70450; 72125; 80074; 81001; 87086; 87389; 96374; 96375; 99285; J1885; J2360

== ENCOUNTER 2024-12-12 08:49 | Outpatient (CLI) | payer MEDICARE, OTHER, SELFPAY ==
--- NOTE | 2024-12-12 | XR_ITS ---
FINAL REPORT CLINICAL HISTORY: HX OF CALCULUS OF KIDNEY, NO PAIN AT THIS TIME COMPARISON: None FINDINGS: SINGLE VIEW ABDOMEN A single view of the abdomen was obtained. There is a nonobstructive bowel gas pattern. A large amount of stool is present in the colon. There are no abnormally dilated loops of small bowel. No abnormal calcifications are identified. Note is made of 16 degrees of thoracolumbar scoliosis convex to the patient's right. IMPRESSION: Nonobstructive bowel gas pattern with a large stool burden. Reviewed, Interpreted and Dictated by Fortino Espinoza MD Transcribed by Paula Mortensen Authenticated and [facility]
--- OUTSIDE RECORDS SUMMARY | 2024-12-12 08:53 | XMS_ITS | Continuity of Care Document ---
Author Organization [facility] [place] [address] [facility] Address [address] [place] [address] Care Team Providers Care Forest Aide Name Role Phone OREN BENITEZ Referring Provider OREN BENITEZ Primary Care Provider Assessment No assessment recorded. Plan of Treatment Reminders Order Date Submit Date Provider Last Modified By Organization Details Last Modified Time Details Appointments None recorded. Lab urinalysis panel, auto 2024 025 [email or web address] [facility], [address], [place], [address], 12:53:50 Referral None recorded. Procedures None recorded. Surgeries None recorded. Imaging None recorded. Medication Orders None recorded. Patient TargetsNo targets recorded. Patient InstructionsNo instructions recorded. Reason for Referral None Reported. Results Created Date Observation Date Name Description Value Unit Range Abnormal Flag Note LastModifiedBy Organization Detail LastModifiedTime 12/05/1912/04/2024 urina lysis panel , auto Unknown Analyte Clean Catch Not Available [facility] [address], [place], [address], 12/04/2024 16:31:35 12/05/1912/04/2024 urina lysis panel , auto Unknown Analyte Yellow Not Available [facility] [address], [place], [address], 12/04/2024 16:31:35 12/05/19 25 12/04/2024 urina lysis panel , auto Unknown Analyte Clear Not Available [facility] [address], [place], [address], 12/04/2024 16:31:35 12/05/19 25 12/04/2024 urina lysis panel , auto Unknown Analyte 1.015 Not Available [facility] [address], [place], [address], 12/04/2024 16:31:35 12/05/19 25 12/04/2024 urina lysis panel , auto Unknown Analyte 1.003 - 1.030 Not Available [facility] [address], [place], [address], 12/04/2024 16:31:35 12/05/19 25 12/04/2024 urina lysis panel , auto Unknown Analyte 6.5 Not Available [facility] [address], [place], [address], 12/04/2024 16:31:35 12/05/19 25 12/04/2024 urina lysis panel , auto Unknown Analyte 5.0 - 8.0 Not Available [facility] [address], [place], [address], 12/04/2024 16:31:35 12/05/19 25 12/04/2024 urina lysis panel , auto Unknown Analyte Negati ve Not Available [facility] [address], [place], [address], 12/04/2024 16:31:35 12/05/19 25 12/04/2024 urina lysis panel , auto Unknown Analyte Negati ve Not Available [facility] [address], [place], [address], 12/04/2024 16:31:35 12/05/19 25 12/04/2024 urina lysis panel , auto Unknown Analyte Negati ve Not Available [facility] [address], [place], [address], 12/04/2024 16:31:35 12/05/19 25 12/04/2024 urina lysis panel , auto Unknown Analyte Negati ve Not Available [facility] [address], [place], [address], 12/04/2024 16:31:35 12/05/19 25 12/04/2024 urina lysis panel , auto Unknown Analyte Negati ve Not Available [facility] [address], [place], [address], 12/04/2024 16:31:35 12/05/19 25 12/04/2024 urina lysis panel , auto Unknown Analyte Negati ve Not Available [facility] [address], [place], [address], 12/04/2024 16:31:35 12/05/19 25 12/04/2024 urina lysis panel , auto Unknown Analyte Normal Not Available [facility] [address], [place], [address], 12/04/2024 16:31:35 12/05/19 25 12/04/2024 urina lysis panel , auto Unknown Analyte Normal Not Available [facility] [address], [place], [address], 12/04/2024 16:31:35 12/05/19 25 12/04/2024 urina lysis panel , auto Unknown Analyte Negati ve Not Available [facility] [address], [place], [address], 12/04/2024 16:31:35 12/05/19 25 12/04/2024 urina lysis panel , auto Unknown Analyte Negati ve Not Available [facility] [address], [place], [address], 12/04/2024 16:31:35 12/05/19 25 12/04/2024 urina lysis panel , auto Unknown Analyte Normal Not Available [facility] [address], [place], [address], 12/04/2024 16:31:35 12/05/19 25 12/04/2024 urina lysis panel , auto Unknown Analyte Normal Not Available [facility] [address], [place], [address], 12/04/2024 16:31:35 12/05/19 25 12/04/2024 urina lysis panel , auto Unknown Analyte Negati ve Not Available [facility] [address], [place], [address], 12/04/2024 16:31:35 12/05/19 25 12/04/2024 urina lysis panel , auto Unknown Analyte Negati ve Not Available [facility] [address], [place], [address], 12/04/2024 16:31:35 12/05/19 25 12/04/2024 urina lysis panel , auto Unknown Analyte Negati ve Not Available [facility] [address], [place], [address], 12/04/2024 16:31:35 12/05/19 25 12/04/2024 urina lysis panel , auto Unknown Analyte Negati ve Not Available [facility] [address] [facility] [address], [place], [address], 12/04/2024 16:31:35 Result Notes None recorded. Problems No Known Problems Procedures Surgical History Date Name Laterality Status Provider Name and Address Organization Details Recorded Time Kidney Stone Removal completed [facility] 08/28/2023 16:03:11 procedure on neck completed [facility] 08/28/2023 16:03:22 Imaging Results None recorded. Procedure [...] Available Not Available Vitals Date Recorded Body height Body mass index (BMI) Body weight Provider Name and Address Organization Details Last Updated DateTime 12/04/2024 157.48 cm 26.5 kg/m2 97358.89 g Saman Ingram [facility] 12/04/2024 16:53:25 Social History Question Answer Notes LastModified by Organizat ion Details LastModified Time Tobacco Smoking Status Never Smoker Angie Fitch [facility] 08/28/2023 16:02:51 What Was The Date Of Your Most Recent Tobacco Screening? 12/04/2024 [email or web address] Information not available 12/04/2024 What Is Your Relationship Status? Information not [...] SNOMED-CT Code Diagnosis ICD10 Code Diagnosis Note [id number] OBED GONZALEZ MD [facility] [address] [place] [address] 12/04/2024 15:05:15 12/09/2024 04:02:43 Urolithiasis 51568645 N20.9 Follow-up 12 months with robinson SHAH that his upcoming KUB is acceptable Health Concerns Section Related Observation LastModified by Organization Detai ls LastModified Time None Recorded Concern Status LastModified by Organization Details LastModified Time None Recorded Payers Encounter Date Sequence Insurance Name Policy Number Policy Merino Covered Member ID Merino Member ID Guarantor Name 12/04/2024 2 [employer] [facility] (MEDICAID HMO) Sher Johnson [id number] Sher Johnson 12/04/2024 1 [employer] (MEDICARE REPLACEMENT/ ADVANTAGE - PPO) [id number] Sher Johnson [id number] Sher Johnson Notes Date Note Type Note Provider Name and Address Organization Details Recorded Time 12/04/2024 text/html Patient is here for scheduled 6-month follow-up with history of urolithiasis. 1 year ago he had shockwave lithotripsy on the right side. His last imaging showed a 5 mm stone lower pole on the left. With some tiny material on lower pole on the right. He has had no flank pain. He has had no urinary infections. We will arrange for a KUB at [facility]. If it is acceptable we will plan to see him back in 1 year. OBED GONZALEZ MD [address] [place] [address], [address], [facility] 12/08/2024 12:54:22
--- OUTSIDE RECORDS SUMMARY | 2024-12-12 08:53 | XMS_ITS | Data Portability ---
Author Organization [facility] DAYANNA Morin PENDER CLOSED Address [address] [place] [address] Care Team Providers Care Engineering Project Designer Name Role Phone OREN BENITEZ Referring Provider [phone] OREN BENITEZ Primary Care Provider [phone] Assessment No assessment recorded. Plan of Treatment Reminders Order Date Submit Date Provider Last Modified By Organization Details Last Modified Time Details Appointments None recorded. Lab urinalysis panel, auto [address] [facility], [address], [address], [place], [address], 5 12:53:50 urinalysis panel, auto 2023 024 [email or web address] [facility], [address], [address], [place], [address], 4 16:30:11 urinalysis panel, auto 2023 024 [email or web address] [facility], [address], [address], [place], [address], 4 19:22:49 kidney stone analysis 2023 024 [facility], [address] [place] [address], [place], [address], 21:04:25 urinalysis panel, auto 2023 024 [email or web address] [facility], [address], [address], [place], [address], 22:44:04 urinalysis panel, auto 2023 024 [facility], [address], [address], [place], [address], 15:12:38 Referral None recorded. Procedures None recorded. Surgeries None recorded. Imaging None recorded. Medication Orders hydrocodone 7.5 mg-acetamin ophen 325 mg tablet 2023 024 [email or web address] [facility], [address], [address], 23:49:40 Patient TargetsNo targets recorded. Patient Instructions Encounter Date Encounter Id Patient Instructions Last Modified By Organization Details Last Modified Time 10/17/2023 [id number] learning about healthy weight [email or web address] Not available 10/17/2023 22:44:02 Reason for Referral None Reported. Results Created Date Observation Date Name Description Value Unit Range Abnormal Flag Note LastModifiedBy Organization Detail LastModifiedTime 08/28/1908/28/2023 urina lysis panel , auto Unknown Analyte Clean Catch Not Available [facility] [address], [place], [address], 08/28/2023 16:14:42 08/28/19 24 08/28/2023 urina lysis panel , auto Unknown Analyte Yellow Not Available [facility] [address], [place], [address], 08/28/2023 16:14:42 08/28/19 24 08/28/2023 urina lysis panel , auto Unknown Analyte Clear Not Available [facility] [address], [place], [address], 08/28/2023 16:14:42 08/28/19 24 08/28/2023 urina lysis panel , auto Unknown Analyte 1.005 Not Available [facility] [address], [place], [address], 08/28/2023 16:14:42 08/28/19 24 08/28/2023 urina lysis panel , auto Unknown Analyte 1.003- 1.035 Not Available [facility] [address], [place], [address], 08/28/2023 16:14:42 08/28/19 24 08/28/2023 urina lysis panel , auto Unknown Analyte 7.0 Not Available [facility] [address], [place], [address], 08/28/2023 16:14:42 08/28/19 24 08/28/2023 urina lysis panel , auto Unknown Analyte 5.0-8. 0 Not Available [facility] [address], [place], [address], 08/28/2023 16:14:42 08/28/19 24 08/28/2023 urina lysis panel , auto Unknown Analyte Negati ve Not Available [facility] [address], [place], [address], 08/28/2023 16:14:42 08/28/19 24 08/28/2023 urina lysis panel , auto Unknown Analyte Negati ve Not Available [facility] [address], [place], [address], 08/28/2023 16:14:42 08/28/19 24 08/28/2023 urina lysis panel , auto Unknown Analyte Negati ve Not Available [facility] [address], [place], [address], 08/28/2023 16:14:42 08/28/19 24 08/28/2023 urina lysis panel , auto Unknown Analyte Negati ve Not Available [facility] [address], [place], [address], 08/28/2023 16:14:42 08/28/19 24 08/28/2023 urina lysis panel , auto Unknown Analyte Negati ve Not Available [facility] [address], [place], [address], 08/28/2023 16:14:42 08/28/19 24 08/28/2023 urina lysis panel , auto Unknown Analyte Negati ve Not Available [facility] [address], [place], [address], 08/28/2023 16:14:42 08/28/19 24 08/28/2023 urina lysis panel , auto Unknown Analyte Normal Not Available [facility] [address], [place], [address], 08/28/2023 16:14:42 08/28/19 24 08/28/2023 urina lysis panel , auto Unknown Analyte Normal Not Available [facility] [address], [place], [address], 08/28/2023 16:14:42 08/28/19 24 08/28/2023 urina lysis panel , auto Unknown Analyte Negati ve Not Available [facility] [address], [place], [address], 08/28/2023 16:14:42 08/28/19 24 08/28/2023 urina lysis panel , auto Unknown Analyte Negati ve Not Available [facility] [address], [place], [address], 08/28/2023 16:14:42 08/28/19 24 08/28/2023 urina lysis panel , auto Unknown Analyte Normal Not Available [facility] [address], [place], [address], 08/28/2023 16:14:42 08/28/19 24 08/28/2023 urina lysis panel , auto Unknown Analyte Normal 1 mg/dl Not Available [facility] [address], [place], [address], 08/28/2023 16:14:42 08/28/19 24 08/28/2023 urina lysis panel , auto Unknown Analyte Negati ve Not Available [facility] [address], [place], [address], 08/28/2023 16:14:42 08/28/19 24 08/28/2023 urina lysis panel , auto Unknown Analyte Negati ve Not Available [facility] [address], [place], [address], 08/28/2023 16:14:42 08/28/19 24 08/28/2023 urina lysis panel , auto Unknown Analyte Negati ve Not Available [facility] [address], [place], [address], 08/28/2023 16:14:42 08/28/19 24 08/28/2023 urina lysis panel , auto Unknown Analyte Negati ve Not Available [facility] [address], [place], [address], 08/28/2023 16:14:42 09/12/19 24 09/12/2023 urina lysis panel , auto Unknown Analyte Clean Catch Not Available [facility] [address], [place], [address], 09/12/2023 13:21:17 09/12/19 24 09/12/2023 urina lysis panel , auto Unknown Analyte Yellow Not Available [facility] [address], [place], [address], 09/12/2023 13:21:17 09/12/19 24 09/12/2023 urina lysis panel , auto Unknown Analyte Clear Not Available [facility] [address], [place], [address], 09/12/2023 13:21:17 09/12/19 24 09/12/2023 urina lysis panel , auto Unknown Analyte 1.005 Not Available [facility] [address], [place], [address], 09/12/2023 13:21:17 09/12/19 24 09/12/2023 urina lysis panel , auto Unknown Analyte 1.003- 1.035 Not Available [facility] [address], [place], [address], 09/12/2023 13:21:17 09/12/19 24 09/12/2023 urina lysis panel , auto Unknown Analyte 5.0 Not Available [facility] [address], [place], [address], 09/12/2023 13:21:17 09/12/19 24 09/12/2023 urina lysis panel , auto Unknown Analyte 5.0-8. 0 Not Available [facility] [address], [place], [address], 09/12/2023 13:21:17 09/12/19 24 09/12/2023 urina lysis panel , auto Unknown Analyte Negati ve Not Available [facility] [address], [place], [address], 09/12/2023 13:21:17 09/12/19 24 09/12/2023 urina lysis panel , auto Unknown Analyte Negati ve Not Available [facility] [address], [place], [address], 09/12/2023 13:21:17 09/12/19 24 09/12/2023 urina lysis panel , auto Unknown Analyte Negati ve Not Available [facility] [address], [place], [address], 09/12/2023 13:21:17 09/12/19 24 09/12/2023 urina lysis panel , auto Unknown Analyte Negati ve Not Available [facility] [address], [place], [address], 09/12/2023 13:21:17 09/12/19 24 09/12/2023 urina lysis panel , auto Unknown Analyte Negati ve Not Available [facility] [address], [place], [address], 09/12/2023 13:21:17 09/12/19 24 09/12/2023 urina lysis panel , auto Unknown Analyte Negati ve Not Available [facility] [address], [place], [address], 09/12/2023 13:21:17 09/12/19 24 09/12/2023 urina lysis panel , auto Unknown Analyte Normal Not Available [facility] [address], [place], [address], 09/12/2023 13:21:17 09/12/19 24 09/12/2023 urina lysis panel , auto Unknown Analyte Normal Not Available [facility] [address], [place], [address], 09/12/2023 13:21:17 09/12/19 24 09/12/2023 urina lysis panel , auto Unknown Analyte Negati ve Not Available [facility] [address], [place], [address], 09/12/2023 13:21:17 09/12/19 24 09/12/2023 urina lysis panel , auto Unknown Analyte Negati ve Not Available [facility] [address], [place], [address], 09/12/2023 13:21:17 09/12/19 24 09/12/2023 urina lysis panel , auto Unknown Analyte Normal Not Available [facility] [address], [place], [address], 09/12/2023 13:21:17 09/12/19 24 09/12/2023 urina lysis panel , auto Unknown Analyte Normal 1 mg/dl Not Available [facility] [address], [place], [address], 09/12/2023 13:21:17 09/12/19 24 09/12/2023 urina lysis panel , auto Unknown Analyte Negati ve Not Available [facility] [address], [place], [address], 09/12/2023 13:21:17 09/12/1909/12/2023 urina lysis panel , auto Unknown Analyte Negati ve Not Available [facility] [address], [place], [address], 09/12/2023 13:21:17 09/12/19 24 09/12/2023 urina lysis panel , auto Unknown Analyte Negati ve Not Available [facility] [address], [place], [address], 09/12/2023 13:21:17 09/12/19 24 09/12/2023 urina lysis panel , auto Unknown Analyte Negati ve Not Available [facility] [address], [place], [address], 09/12/2023 13:21:17 10/17/19 24 10/17/2023 urina lysis panel , auto Unknown Analyte Clean Catch Not Available [facility] [address], [place], [address], 10/17/2023 13:38:29 10/17/19 24 10/17/2023 urina lysis panel , auto Unknown Analyte Yellow Not Available [facility] [address], [place], [address], 10/17/2023 13:38:29 10/17/19 24 10/17/2023 urina lysis panel , auto Unknown Analyte Clear Not Available [facility] [address], [place], [address], 10/17/2023 13:38:29 10/17/19 24 10/17/2023 urina lysis panel , auto Unknown Analyte 1.005 Not Available [facility] [address], [place], [address], 10/17/2023 13:38:29 10/17/19 24 10/17/2023 urina lysis panel , auto Unknown Analyte 1.003- 1.035 Not Available [facility] [address], [place], [address], 10/17/2023 13:38:29 10/17/19 24 10/17/2023 urina lysis panel , auto Unknown Analyte 7.0 Not Available [facility] [address], [place], [address], 10/17/2023 13:38:29 10/17/19 24 10/17/2023 urina lysis panel , auto Unknown Analyte 5.0-8. 0 Not Available [facility] [address], [place], [address], 10/17/2023 13:38:29 10/17/19 24 10/17/2023 urina lysis panel , auto Unknown Analyte Negati ve Not Available [facility] [address], [place], [address], 10/17/2023 13:38:29 10/17/19 24 10/17/2023 urina lysis panel , auto Unknown Analyte Negati ve Not Available [facility] [address], [place], [address], 10/17/2023 13:38:29 10/17/19 24 10/17/2023 urina lysis panel , auto Unknown Analyte Negati ve Not Available [facility] [address], [place], [address], 10/17/2023 13:38:29 10/17/19 24 10/17/2023 urina lysis panel , auto Unknown Analyte Negati ve Not Available [facility] [address], [place], [address], 10/17/2023 13:38:29 10/17/19 24 10/17/2023 urina lysis panel , auto Unknown Analyte Negati ve Not Available [facility] [address], [place], [address], 10/17/2023 13:38:29 10/17/19 24 10/17/2023 urina lysis panel , auto Unknown Analyte Negati ve Not Available [facility] [address], [place], [address], 10/17/2023 13:38:29 10/17/19 24 10/17/2023 urina lysis panel , auto Unknown Analyte Normal Not Available [facility] [address], [place], [address], 10/17/2023 13:38:29 10/17/19 24 10/17/2023 urina lysis panel , auto Unknown Analyte Normal Not Available [facility] [address], [place], [address], 10/17/2023 13:38:29 10/17/19 24 10/17/2023 urina lysis panel , auto Unknown Analyte Negati ve Not Available [facility] [address], [place], [address], 10/17/2023 13:38:29 10/17/19 24 10/17/2023 urina lysis panel , auto Unknown Analyte Negati ve Not Available [facility] [address], [place], [address], 10/17/2023 13:38:29 10/17/19 24 10/17/2023 urina lysis panel , auto Unknown Analyte Normal Not Available [facility] [address], [place], [address], 10/17/2023 13:38:29 10/17/19 24 10/17/2023 urina lysis panel , auto Unknown Analyte Normal 1 mg/dl Not Available [facility] [address], [place], [address], 10/17/2023 13:38:29 10/17/19 24 10/17/2023 urina lysis panel , auto Unknown Analyte Negati ve Not Available [facility] [address], [place], [address], 10/17/2023 13:38:29 10/17/19 24 10/17/2023 urina lysis panel , auto Unknown Analyte Negati ve Not Available [facility] [address], [place], [address], 10/17/2023 13:38:29 10/17/19 24 10/17/2023 urina lysis panel , auto Unknown Analyte Negati ve Not Available [facility] [address], [place], [address], 10/17/2023 13:38:29 10/17/19 24 10/17/2023 urina lysis panel , auto Unknown Analyte Negati ve Not Available [facility] [address], [place], [address], 10/17/2023 13:38:29 01/03/20 24 01/10/2024 STONE LALITA SIS composition SEE NOTE normal Calci um Oxala te Dihyd rate (Wedd ellit e) 10% Calci um Oxala te Monoh ydrat e (Whew ellit e) 90% Not Available [facility] [address] [place], [address], 01/10/2024 21:04:25 01/03/20 24 01/10/2024 STONE LALITA SIS weight 0.001 g normal This test was devel oped and its lalita tical perfo rmanc e james cteri stics have been deter mined by [facility]. It has not been clear ed or appro rene by FDA. This assay has been valid ated pursu ant to the CLIA regul ation s and is used for clini toni purpo ses. Not Available [facility] [address] [place] [address], [address], 01/10/2024 21:04:25 01/03/20 24 01/03/2024 urina lysis panel , auto Unknown Analyte Clean Catch Not Available [facility] [address], [address], 01/03/2024 13:37:54 01/03/20 24 01/03/2024 urina lysis panel , auto Unknown Analyte Yellow Not Available [facility] [address], [address], 01/03/2024 13:37:54 01/03/20 24 01/03/2024 urina lysis panel , auto Unknown Analyte Clear Not Available [facility] [address], [address], 01/03/2024 13:37:54 01/03/20 24 01/03/2024 urina lysis panel , auto Unknown Analyte 1.000 Not Available [facility] [address], [place], [address], 01/03/2024 13:37:54 01/03/20 24 01/03/2024 urina lysis panel , auto Unknown Analyte 1.003- 1.035 Not Available [facility] [address], [place], [address], 01/03/2024 13:37:54 01/03/20 24 01/03/2024 urina lysis panel , auto Unknown Analyte 6.5 Not Available [facility] [address], [place], [address], 01/03/2024 13:37:54 01/03/20 24 01/03/2024 urina lysis panel , auto Unknown Analyte 5.0-8. 0 Not Available [facility] [address], [place], [address], 01/03/2024 13:37:54 01/03/20 24 01/03/2024 urina lysis panel , auto Unknown Analyte Negati ve Not Available [facility] [address], [place], [address], 01/03/2024 13:37:54 01/03/20 24 01/03/2024 urina lysis panel , auto Unknown Analyte Negati ve Not Available [facility] [address], [place], [address], 01/03/2024 13:37:54 01/03/20 24 01/03/2024 urina lysis panel , auto Unknown Analyte Negati ve Not Available [facility] [address], [place], [address], 01/03/2024 13:37:54 01/03/20 24 01/03/2024 urina lysis panel , auto Unknown Analyte Negati ve Not Available [facility] [address], [place], [address], 01/03/2024 13:37:54 01/03/20 24 01/03/2024 urina lysis panel , auto Unknown Analyte Negati ve Not Available [facility] [address], [place], [address], 01/03/2024 13:37:54 01/03/20 24 01/03/2024 urina lysis panel , auto Unknown Analyte Negati ve Not Available [facility] [address], [place], [address], 01/03/2024 13:37:54 01/03/20 24 01/03/2024 urina lysis panel , auto Unknown Analyte 50 mg/dl Not Available [facility] [address], [place], [address], 01/03/2024 13:37:54 01/03/20 24 01/03/2024 urina lysis panel , auto Unknown Analyte Normal Not Available [facility] [address], [place], [address], 01/03/2024 13:37:54 01/03/20 24 01/03/2024 urina lysis panel , auto Unknown Analyte Negati ve Not Available [facility] [address], [place], [address], 01/03/2024 13:37:54 01/03/20 24 01/03/2024 urina lysis panel , auto Unknown Analyte Negati ve Not Available [facility] [address], [place], [address], 01/03/2024 13:37:54 01/03/20 24 01/03/2024 urina lysis panel , auto Unknown Analyte Normal Not Available [facility] [address], [place], [address], 01/03/2024 13:37:54 01/03/20 24 01/03/2024 urina lysis panel , auto Unknown Analyte Normal 1 mg/dl Not Available [facility] [address], [place], [address], 01/03/2024 13:37:54 01/03/20 24 01/03/2024 urina lysis panel , auto Unknown Analyte Negati ve Not Available [facility] [address], [place], [address], 01/03/2024 13:37:54 01/03/20 24 01/03/2024 urina lysis panel , auto Unknown Analyte Negati ve Not Available [facility] [address], [place], [address], 01/03/2024 13:37:54 01/03/20 24 01/03/2024 urina lysis panel , auto Unknown Analyte Negati ve Not Available [facility] [address], [place], [address], 01/03/2024 13:37:54 01/03/20 24 01/03/2024 urina lysis panel , auto Unknown Analyte Negati ve Not Available [facility] [address], [place], [address], 01/03/2024 13:37:54 04/22/20 24 04/22/2024 urina lysis panel , auto Unknown Analyte Clean Catch Not Available [facility] [address], [place], [address], 04/22/2024 14:59:47 04/22/20 24 04/22/2024 urina lysis panel , auto Unknown Analyte Yellow Not Available [facility] [address], [place], [address], 04/22/2024 14:59:47 04/22/2004/22/2024 urina lysis panel , auto Unknown Analyte Clear Not Available [facility] [address], [place], [address], 04/22/2024 14:59:47 04/22/20 24 04/22/2024 urina lysis panel , auto Unknown Analyte 1.005 Not Available [facility] [address], [place], [address], 04/22/2024 14:59:47 04/22/20 24 04/22/2024 urina lysis panel , auto Unknown Analyte 1.003- 1.035 Not Available [facility] [address], [place], [address], 04/22/2024 14:59:47 04/22/2004/22/2024 urina lysis panel , auto Unknown Analyte 6.0 Not Available [facility] [address], [place], [address], 04/22/2024 14:59:47 04/22/2004/22/2024 urina lysis panel , auto Unknown Analyte 5.0-8. 0 Not Available [facility] [address], [place], [address], 04/22/2024 14:59:47 04/22/20 24 04/22/2024 urina lysis panel , auto Unknown Analyte Negati ve Not Available [facility] [address], [place], [address], 04/22/2024 14:59:47 04/22/2004/22/2024 urina lysis panel , auto Unknown Analyte Negati ve Not Available [facility] [address], [place], [address], 04/22/2024 14:59:47 04/22/2004/22/2024 urina lysis panel , auto Unknown Analyte Negati ve Not Available [facility] [address], [place], [address], 04/22/2024 14:59:47 04/22/20 24 04/22/2024 urina lysis panel , auto Unknown Analyte Negati ve Not Available [facility] [address], [place], [address], 04/22/2024 14:59:47 04/22/2004/22/2024 urina lysis panel , auto Unknown Analyte Negati ve Not Available [facility] [address], [place], [address], 04/22/2024 14:59:47 04/22/2004/22/2024 urina lysis panel , auto Unknown Analyte Negati ve Not Available [facility] [address], [place], [address], 04/22/2024 14:59:47 04/22/20 24 04/22/2024 urina lysis panel , auto Unknown Analyte 50 mg/dl Not Available [facility] [address], [place], [address], 04/22/2024 14:59:47 04/22/2004/22/2024 urina lysis panel , auto Unknown Analyte Normal Not Available [facility] [address], [place], [address], 04/22/2024 14:59:47 04/22/2004/22/2024 urina lysis panel , auto Unknown Analyte Negati ve Not Available [facility] [address], [place], [address], 04/22/2024 14:59:47 04/22/2004/22/2024 urina lysis panel , auto Unknown Analyte Negati ve Not Available [facility] [address], [place], [address], 04/22/2024 14:59:47 04/22/2004/22/2024 urina lysis panel , auto Unknown Analyte Normal Not Available [facility] [address], [place], [address], 04/22/2024 14:59:47 04/22/2004/22/2024 urina lysis panel , auto Unknown Analyte Normal 1 mg/dl Not Available [facility] [address], [place], [address], 04/22/2024 14:59:47 04/22/2004/22/2024 urina lysis panel , auto Unknown Analyte Negati ve Not Available [facility] [address], [place], [address], 04/22/2024 14:59:47 04/22/2004/22/2024 urina lysis panel , auto Unknown Analyte Negati ve Not Available [facility] [address], [place], [address], 04/22/2024 14:59:47 04/22/2004/22/2024 urina lysis panel , auto Unknown Analyte Negati ve Not Available [facility] [address], [place], [address], 04/22/2024 14:59:47 04/22/2004/22/2024 urina lysis panel , auto Unknown Analyte Negati ve Not Available [facility] [address], [place], [address], 04/22/2024 14:59:47 12/05/19 25 12/04/2024 urina lysis panel , auto Unknown Analyte Clean Catch Not Available [facility] [address], [place], [address], 12/04/2024 16:31:35 12/05/19 25 12/04/2024 urina lysis panel , auto Unknown Analyte Yellow Not Available [facility] [address], [place], [address], 12/04/2024 16:31:35 12/05/19 25 12/04/2024 urina lysis panel , auto Unknown Analyte Clear Not Available [facility] [address], [place], [address], 12/04/2024 16:31:35 12/05/19 25 12/04/2024 urina lysis panel , auto Unknown Analyte 1.015 Not Available [facility] [address], [place], [address], 12/04/2024 16:31:35 12/05/19 25 12/04/2024 urina lysis panel , auto Unknown Analyte 1.003 - 1.030 Not Available [facility] [address], [place], [address], 12/04/2024 16:31:35 12/05/19 25 12/04/2024 urina lysis panel , auto Unknown Analyte 6.5 Not Available [facility] [address], [place], [address], 12/04/2024 16:31:35 12/05/19 25 12/04/2024 urina lysis panel , auto Unknown Analyte 5.0 - 8.0 Not Available [facility] [address], [place], [address], 12/04/2024 16:31:35 12/05/19 25 12/04/2024 urina lysis panel , auto Unknown Analyte Negati ve Not Available [facility] [address], [place], [address], 12/04/2024 16:31:35 12/05/19 25 12/04/2024 urina lysis panel , auto Unknown Analyte Negati ve Not Available [facility] [address], [place], [address], 12/04/2024 16:31:35 12/05/19 25 12/04/2024 urina lysis panel , auto Unknown Analyte Negati ve Not Available [facility] [address], [place], [address], 12/04/2024 16:31:35 12/05/19 25 12/04/2024 urina lysis panel , auto Unknown Analyte Negati ve Not Available [facility] [address], [place], [address], 12/04/2024 16:31:35 12/05/19 25 12/04/2024 urina lysis panel , auto Unknown Analyte Negati ve Not Available [facility] [address], [place], [address], 12/04/2024 16:31:35 12/05/19 25 12/04/2024 urina lysis panel , auto Unknown Analyte Negati ve Not Available [facility] [address], [place], [address], 12/04/2024 16:31:35 12/05/19 25 12/04/2024 urina lysis panel , auto Unknown Analyte Normal Not Available [facility] [address], [place], [address], 12/04/2024 16:31:35 12/05/19 25 12/04/2024 urina lysis panel , auto Unknown Analyte Normal Not Available [facility] [address], [place], [address], 12/04/2024 16:31:35 12/05/19 25 12/04/2024 urina lysis panel , auto Unknown Analyte Negati ve Not Available [facility] [address], [place], [address], 12/04/2024 16:31:35 12/05/19 25 12/04/2024 urina lysis panel , auto Unknown Analyte Negati ve Not Available [facility] [address], [place], [address], 12/04/2024 16:31:35 12/05/19 25 12/04/2024 urina lysis panel , auto Unknown Analyte Normal Not Available [facility] [address], [place], [address], 12/04/2024 16:31:35 12/05/19 25 12/04/2024 urina lysis panel , auto Unknown Analyte Normal Not Available [facility] [address], [place], [address], 12/04/2024 16:31:35 12/05/19 25 12/04/2024 urina lysis panel , auto Unknown Analyte Negati ve Not Available [facility] [address], [place], [address], 12/04/2024 16:31:35 12/05/19 25 12/04/2024 urina lysis panel , auto Unknown Analyte Negati ve Not Available [facility] [address], [place], [address], 12/04/2024 16:31:35 12/05/19 25 12/04/2024 urina lysis panel , auto Unknown Analyte Negati ve Not Available [facility] [address], [place], [address], 12/04/2024 16:31:35 12/05/19 25 12/04/2024 urina lysis panel , auto Unknown Analyte Negati ve Not Available [facility] [address], [place], [address], 12/04/2024 16:31:35 09/06/19 24 07/19/2023 XR, lumba r spine No observ ation record ed. BARCODE Not Available 2023 17:12:01 12/13/19 24 12/02/2023 CT, abdom en + pelvi s, w/o contr ast No observ ation record ed. [email or web address] [facility] [address], [place], [address], 01/05/2024 12:30:36 03/29/20 24 03/27/2024 XR, abdom en, 1 view No observ ation record ed. [address], [place], [address], 04/19/2024 14:25:11 Result Notes None recorded. Problems No Known Problems Procedures Surgical History Date Name Laterality Status Provider Name and Address Organization Details Recorded Time Kidney Stone Removal completed [facility] 08/28/2023 16:03:11 procedure on neck completed [facility] 08/28/2023 16:03:22 Imaging Results None recorded. Procedure [...] Updated DateTime 09/12/2023 157.48 cm 26.5 kg/m2 68402.89 g Juany [place] [facility] 09/12/2023 14:41:50 Date Recorded Body height Body mass index (BMI) Body weight Body temperature Heart rate Systolic And Diastolic Provider Name and Address Organization Details Last Updated DateTime 157.48 cm 26.5 kg/m2 55314.8 9 g 97.1 [degF] 59 /min 117/75 mm[Hg] Anthony Jernigan [facility] 13:39:33 Date Recorded Body height Body mass index (BMI) Body weight Provider Name and Address Organization Details Last Updated DateTime 12/04/2024 157.48 cm 26.5 kg/m2 20633.89 g Saman In[place] [facility] 12/04/2024 16:53:25 Date Recorded Body height Body mass index (BMI) Body weight Provider Name and Address Organization Details Last Updated DateTime 01/03/2024 157.48 cm 25.6 kg/m2 87834.93 g Meli Steel [facility] 01/03/2024 14:53:32 Social History Question Answer Notes LastModified by Business Combined Details LastModified Time Tobacco Smoking Status Never Smoker [email or web address] 08/28/2023 16:02:51 What Was The Date Of Your Most Recent Tobacco Screening? 12/04/2024 [email or web address] Information not available 12/04/2024 What Is Your Relationship Status? Information not available 08/28/2023 Sex: Unknown Functional Status Question Answer Note LastModified by Business Combined Details LastModified Time Do you or have [...] SNOMED-CT Code Diagnosis ICD10 Code Diagnosis Note [id number] MD [facility] [address] [place] [address] 08/28/2023 15:15:44 08/28/2023 16:59:14 Urolithiasis 97862885 N20.[address] scan stone protocol Flank pain 818004511 R10 .9 [id number] MD [facility] [address] [place] [address] 09/12/2023 13:07:19 09/12/2023 15:12:41 Kidney stone 47999171 N20.0 We will arrange for right shockwave lithotrips y [id number] OBED GONZALEZ MD [facility] [address] [place] [address] 10/17/2023 13:24:54 10/17/2023 14:29:05 Urolithiasis 03451781 N20.9 Follow-up 6 months with KUB [id number] OBED GONZALEZ MD [facility] [address] [place] [address] 01/03/2024 13:26:38 01/03/2024 15:33:27 Kidney stone 04607697 N20.0 We will follow left sided stone and see in 6 months with KUB [id number] OBED GONZALEZ MD [facility] [address] [place] [address] 04/22/2024 14:05:54 04/22/2024 16:50:12 Urolithiasis [id number] N20.9 Follow-up 6 months with KUB [id number] OBED GONZALEZ MD [facility] [address] [address] 12/04/2024 15:05:15 12/09/2024 04:02:43 Urolithiasis [id number] N20.9 Follow-up 12 months with robinson SHAH [...] Guarantor Name 07/19/2024 1 [place] Sher Schneider Alex [id number] Sher W Alex 12/09/2024 2 [facility] (MEDICAID HMO) Sher Johnson [id number] hSer Johnson 12/09/2024 1 [employer] (MEDICARE REPLACEMENT/ ADVANTAGE - PPO) [id number] Sher Johnson [id number] Sher Johnson Notes Date Note Type Note Provider Name and Address Organization Details Recorded Time 09/12/2023 text/html Patient was seen on the for initial visit with possible right renal stone on abdominal film. I had arranged for him to have a CT scan. In the interim he had right-sided flank pain and was seen at [facility] emergency room and had a CT scan. This demonstrates a 10 mm stone right kidney. It seems to be an infundibulum calyx but no ureteral obstruction. No additional stones are noted. Due to the stones location I suggest right-sided shockwave lithotripsy. This should be treated and effective without ureteral stent. He and his understand and wish to proceed. OBED GONZALEZ MD [address] [place] [address], [phone], [facility] 09/12/2023 23:51:42 10/17/2023 text/html Patient is here 3 weeks following right-sided shockwave lithotripsy. He has passed some stone material without significant discomfort. His stone appeared to be well treated. It was 7 mm in size midpole right kidney. We discussed strategies for stone prevention. OBED GONZALEZ MD [address] [place] [address], [phone], [facility] 10/17/2023 22:44:29 01/03/2024 text/html Patient was last seen in October following shockwave lithotripsy. He was having some back pain recently and had evaluation at [facility]. CT scan there showed a 5 mm stone lower pole left kidney. His previous shockwave was on the right. I reviewed a disc and there is only a tiny bit of material lower pole right kidney. We discussed whether to intervene on the left side at this point suggest observation. OBED GONZALEZ MD [address] [place] [address], [phone], [facility] 01/04/2024 23:18:39 04/22/2024 text/html Patient is here in follow-up of urolithiasis. He was last seen in December following shockwave lithotripsy on the right. A CT scan at [facility] following that showed a 5 mm [...] I reviewed his images on a disk. OBED GONZALEZ MD [facility] [place], [address], [facility] 04/28/2024 16:30:38 12/04/2024 text/html Patient is here for scheduled [...] We will arrange for a KUB at [facility]. If it is acceptable we will plan to see him back in 1 year. OBED GONZALEZ MD [facility] [place], [address], [facility] 12/08/2024 12:54:22
--- OUTSIDE RECORDS SUMMARY | 2024-12-12 08:53 | XMS_ITS | Referral Summary ---
Author Organization [employer] ([place], [place], [place], [place]) Address [address] [place] [address] Care Team Providers Care Bench Press Operator Name Role Phone [facility], Provider Not In The System Primary Care Provider Unavailable Allergies No known active allergies Medications metoprolol tartrate (LOPRESSOR) 50 MG tablet Take 1 tablet (50 mg total) by mouth 2 (two) times daily. 09/05/2023 Active Active Problems No known active problems Social History Tobacco Use Types Packs/Day Years Used Date Smoking Tobacco: Never Smokeless Tobacco: Never Tobacco Cessation:Counseling Given: Not Answered Food Insecurity Answer Date Recorded Food run [...] Date Tejinder rded Speak language other than Croatian at home Not on file 09/20/2023 Want help with school or training Not on file 09/20/2023 Substance Use Answer Date Recorded Used [...] on file Insurance MEDICARE PART A B [facility] Care Teams Bench Press Operator Relationship Specialty Start Date End Date [facility], Provider Not In The System, [place] [address] PCP - General 09/21/23
--- OUTSIDE RECORDS SUMMARY | 2024-12-12 08:53 | XMS_ITS | Clinical Summary ---
Author Organization Healthcare Address [address] [place] [address] Care Team Providers Care Furnace Cooler Name Role Phone Huang Aguila MD Primary Care Provider [phone] Social History Tobacco Use Types Packs/Day Years [...] of Treatment Not on file Care Teams Furnace Cooler Relationship Specialty Start Date End Date Huang Aguila MD [address] [place] [address] #1 #1 [place] STEF[place]IE [address] PCP - General 10/16/20
== END 2024-12-12 23:59 | disposition home or self-care (01) ==
LOC: RAD 08:50
PROVIDERS: PCP Family Medicine; Visit Provider Urology
DX: R93.3 Abnormal findings on diagnostic imaging of other parts of digestive tract (principal); N20.0 Calculus of kidney
CPT/HCPCS: 74018

== ENCOUNTER 2025-03-26 12:38 | Outpatient (CLI) | payer MEDICARE, OTHER, SELFPAY ==
--- NOTE | 2025-03-26 12:44 | XR_ITS ---
FINAL REPORT TECHNIQUE: 5 views CLINICAL HISTORY: RECURRECT LBP COMPARISON: 07/19/2023 FINDINGS: There is no fracture present. There is no malalignment. There is mild diffuse degenerative disc disease and spondylosis. Moderate facet arthropathy is identified. IMPRESSION: Stable degenerative changes. Reviewed, Interpreted and Dictated by Ruchi Griffin MD Transcribed by Sandy Orosco Authenticated and . [facility]
--- OUTSIDE RECORDS SUMMARY | 2025-03-26 12:48 | XMS_ITS ---
Author Organization Unknown Problems Date Problem Result OnSetDate Icd10 SnomedCode Severity Cu stom 03/03/2024 00:00:00 Cervicalgia M54.2 03/03/2024 00:00:00 Fatigue associated with anemia D64.9 03/03/2024 00:00:00 Depression F32.9 04/03/2024 00:00:00 Sinus infection J32.9 05/14/2024 00:00:00 Kidney stone N20.0 07/02/2024 00:00:00 Chronic pain G89.29 08/07/2024 00:00:00 Chronic migraine with aura, intractable, with status migrainosus G43.E11 08/07/2024 00:00:00 Chronic migraine G43.709 11/13/2024 00:00:00 Headache syndrome G44.89
--- OUTSIDE RECORDS SUMMARY | 2025-03-26 12:48 | XMS_ITS | Clinical Summary ---
Author Organization Healthcare Address [address] [place] [address] Care Team Providers Care Sand Polisher Name Role Phone Huang Aguila MD Primary Care Provider [phone] Social History Tobacco Use Types Packs/Day Years [...] of Treatment Not on file Care Teams Sand Polisher Relationship Specialty Start Date End Date Huang Aguila MD [address] [place] [address] #1 [address]1 Angelo STEFANIE [id number] PCP - General 10/16/20
--- OUTSIDE RECORDS SUMMARY | 2025-03-26 12:49 | XMS_ITS | Clinical Summary ---
Author Organization [employer] ([place], [place], [place], [place]) Address [address] [place] [address] Care Team Providers Care Circulating Process Inspector Name Role Phone [facility], Provider Not In The System Primary Care [...] Date Tejinder rded Speak language other than French at home Not on file 09/20/2023 Want [...] Shingles Vaccine (Zoster) (1 of 2) 09/07/2013 Tobacco Cessation Counseling and Screening (12+) 09/25/2024 09/26/2023 COVID-19 VACCINE (3 - 2024- season) 02/03/202506/2020, 08/12/2020 Influenza Vaccine (#1) 2025 Respiratory Syncytial Virus (RSV) Adult or (1 - 1-dose 75+ series) 09/07/2038 Insurance MEDICARE PART A B [facility] Care Teams Circulating Process Inspector Relationship Specialty Start Date End Date [facility], Provider Not In The System, [place] [address] PCP - General 09/21/23
--- OUTSIDE RECORDS SUMMARY | 2025-03-26 12:49 | XMS_ITS | Referral Summary ---
Author Organization [employer] ([place], [place], [place], [place]) Address [address] [place] [address] Care Team Providers Care Computer Graphics Illustrator Name Role Phone [facility], Provider Not In The System Primary Care [...] Date Tejinder rded Speak language other than Azeri at home Not on file 09/20/2023 Want [...] on file Insurance MEDICARE PART A B [facility] Care Teams Computer Graphics Illustrator Relationship Specialty Start Date End Date [facility], Provider Not In The System, [place] [address] PCP - General 09/21/23
== END 2025-03-26 23:59 | disposition home or self-care (01) ==
LOC: RAD 12:40
PROVIDERS: PCP Family Medicine; Visit Provider Family Medicine
DX: M47.817 Spondylosis without myelopathy or radiculopathy, lumbosacral region (principal)
CPT/HCPCS: 72110